=== PATIENT | female | born 2000 | race Hispanic/Latino ===

== ENCOUNTER 2023-03-18 19:13 | Emergency (ER) | payer OTHER ==
[2023-03-18 20:13] LABS: Specific Gravity 1.025 (1.005-1.030)
[2023-03-18 20:16] LABS: Specific Gravity 1.025 (1.005-1.030); Urine Bacteria <20 /HPF (<20); Urine Bilirubin NEGATIVE (Negative); Urine Blood 2+ (Negative); Urine Clarity Extremely Turbid (Clear); Urine Color Light-Yellow (Yellow); Urine Glucose NEGATIVE (Negative); Urine Mucus 1+ /HPF (None Seen); Urine Protein NEGATIVE (Negative); Urine RBC <5 /HPF (None Seen); Urine Urobilinogen Normal (Normal); Urine pH 5.5 (5.0-7.0)
[2023-03-18] MEDS ORDERED: CEFTRIAXONE 1000 MG/VIAL ONE (23:29)
[2023-03-18] MEDS ORDERED: AZITHROMYCIN 250 MG TAB ONE (23:29)
[2023-03-18] MEDS ORDERED: LIDOCAINE 1% MPF 2 ML AMPULE ONE (23:29)
[2023-03-19 01:41] VITALS: TEMP 98; O2SAT 100
[2023-03-19 01:42] VITALS: BP 143/91
--- NOTE | 2023-03-19 23:54 | ER ---
Nurse's Notes [facility] Name: Charley Hurtado Age: 22 yrs Sex: Female : 2000 Arrival Date: 03/18/2023 Time: 19:13 Bed 12 Private MD: Diagnosis: Abscess of Bartholin's gland Presentation: 03/18 19:44 Chief complaint: Patient states: VAGINAL PAIN AND EDEMA SINCE LAST PM, JUST FINISHED bp LAST MENSTRUAL PERIOD. Coronavirus screen: At this time, the client does not indicate any symptoms associated with coronavirus-19. Ebola Screen: No symptoms or risks identified at this time. Initial Sepsis Screen: Does the patient meet any 2 criteria? No. Patient's initial sepsis screen is negative. Does the patient have a suspected source of infection? No. Patient's initial sepsis screen is negative. Risk Assessment: Do you want to hurt yourself or someone else? Patient reports no desire to harm self or others. Onset of symptoms is unknown. 19:44 Method Of Arrival: Ambulatory bp 19:44 Acuity: FABIAN 3 bp Triage Assessment: 19:45 General: Appears uncomfortable, Behavior is cooperative, appropriate for age, anxious. bp Pain: Complains of pain in pelvis. EENT: No deficits noted. : Reports pain with urination. 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 - Social history:: Smoking status: Patient denies any tobacco usage or history of. Screenin:21 [facility] ED Fall Risk Assessment (Adult) History of falling in the last 3 months, me1 including since admission No falls in past 3 months (0 pts) Confusion or Disorientation No (0 pts) Intoxicated or Sedated No (0 pts) Impaired Gait No (0 pts) Mobility Assist Device Used No (0 pt) Altered Elimination No (0 pt) Score/Fall Risk Level 0 - 2 = Low Risk. Abuse screen: Denies threats or abuse. Nutritional screening: No deficits noted. Tuberculosis screening: No symptoms or risk factors identified. Assessment: 23:21 General: Appears uncomfortable, well groomed, well developed, well nourished, Behavior me1 is calm, cooperative, appropriate for age, Reports vaginal pain and edema that started last night. Patient just finished her menstrual cycle. Pain: Complains of pain in vagina Pain does not radiate. Pain currently is 6 out of 10 on a pain scale. Quality of pain is described as tender, throbbing, Pain began 1 day ago. Is continuous. Neuro: Level of Consciousness is awake, alert, obeys commands, Oriented to person, place, time, situation, Appropriate for age. Cardiovascular: Capillary refill < 3 seconds Patient's skin is warm and dry. Respiratory: Airway is patent Respiratory effort is even, unlabored, Respiratory pattern is regular, symmetrical. : Denies burning with urination. Vital Signs: 19:44 BP 151 / 96; Pulse 91; Resp 16; Temp 98; Pulse Ox 100% ; Weight 72.57 kg; Height 5 ft. bp 3 in. ; 23:37 BP 143 / 91; Pulse 93; Resp 17; Pulse Ox 100% on R/A; me1 19:44 Body Mass Index 28.34 (72.57 kg, 160.02 cm) bp ED Course: 19:18 Patient arrived in ED. ag3 19:24 Gloria Vera FNP-C is [facility]. kb 19:24 Eliana Russell is Attending Physician. kb 19:45 Triage completed. bp 19:45 Arm band placed on. bp 23:10 Leigh Amador, RN is Primary Nurse. me1 23:21 Patient has correct armband on for positive identification. Placed in gown. Bed in low me1 position. Call light in reach. Side rails up X 1. Provided Education on: POC. Verbalized understanding. . 23:21 No provider procedures requiring assistance completed. Patient did not have IV access me1 during this emergency room visit. Administered Medications: 23:36 Drug: AZITHromycin PO 1 grams Route: PO; me1 23:48 Follow up: Response: No adverse reaction me1 23:36 Drug: Rocephin (cefTRIAXone) IM 1 grams Route: IM; Site: left deltoid; me1 23:48 Follow up: Response: No adverse reaction me1 Medication: 23:21 VIS not applicable for this client. me1 Outcome: 23:01 Discharge ordered by . marcus 23:53 Discharged to home ambulatory, with family. me1 23:53 Condition: stable 23:53 Discharge instructions given to patient, family, Instructed on discharge instructions, follow up and referral plans. medication usage, Demonstrated understanding of instructions, follow-up care, medications, Prescriptions given X 1. 23:54 Patient left the ED. me1 Signatures: Gloria Vera, [employer]-C HYACINTH-Cory Escamilla, RN RN Yolanda Purdy [facility] Leigh Amador, NETTE RN me1
--- NOTE | 2023-03-19 23:54 | EDPHYS ---
Physician Documentation [facility] Name: Charley Hurtado Age: 22 yrs Sex: Female : 2000 Arrival Date: 03/18/2023 Time: 19:13 Bed 12 Private MD: ED Physician Eliana Russell HPI: 03/18 23:31 This 22 yrs old Female presents to ER via Ambulatory with complaints of kb Vaginal Pain, vaginal swelling. 23:31 The patient presents with pelvic pain, that is located in/on the right labia majora. kb Onset: The symptoms/episode began/occurred yesterday. Modifying factors: The symptoms are alleviated by nothing, the symptoms are aggravated by pressure. Associated signs and symptoms: The patient has no apparent associated signs or symptoms. Severity of symptoms: At their worst the symptoms were moderate, in the emergency department the symptoms are unchanged. The patient has experienced a previous episode. The patient has not recently seen a physician. Patient reports pain and swelling to labia since yesterday.. 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 - Social history:: Smoking status: Patient denies any tobacco usage or history of. ROS: 23:30 Constitutional: Negative for fever, chills, and weight loss. kb 23:30 : Positive for Pain and swelling to labia. 23:30 All other systems are negative. Exam: 23:29 Constitutional: This is a well developed, well nourished patient who is awake, alert, kb and in no acute distress. Head/Face: Normocephalic, atraumatic. ENT: Moist Mucous membranes Cardiovascular: Regular rate and rhythm with a normal S1 and S2. No gallops, murmurs, or rubs. No pulse deficits. Respiratory: Respirations even and unlabored. No increased work of breathing. Talking in full sentences Abdomen/GI: Soft, non-tender. No distention Skin: Warm, dry with normal turgor. Normal color. MS/ Extremity: Pulses equal, no cyanosis. Neurovascular intact. Full, normal range of motion. Neuro: Awake and alert, GCS 15, oriented to person, place, time, and situation. Moves all extremities. Normal gait. 23:29 : Pelvic Exam: External exam: Bartholin's cyst present. Vital Signs: 19:44 BP 151 / 96; Pulse 91; Resp 16; Temp 98; Pulse Ox 100% ; Weight 72.57 kg; Height 5 ft. bp 3 in. ; 23:37 BP 143 / 91; Pulse 93; Resp 17; Pulse Ox 100% on R/A; me1 19:44 Body Mass Index 28.34 (72.57 kg, 160.02 cm) bp MDM: 19:24 Patient medically screened. kb 23:29 Differential diagnosis: urinary tract infection, vaginosis, Bartholin cyst, abscess. kb Data reviewed: vital signs, nurses notes. Counseling: I had a detailed discussion with the patient and/or guardian regarding the historical points, exam findings, and any diagnostic results supporting the discharge/admit diagnosis, lab results, the need for outpatient follow up, an OB/Gyne specialist, to return to the emergency department if symptoms worsen or persist or if there are any questions or concerns that arise at home. ED course: Discussed I\T\D with patient. Patient states she has had something similar in the past and the antibiotics took care of it without having it cut. Patient would like to try oral antibiotics first, does not want I\T\D at this time. 03/18 20:00 Order name: Urine W/Microscopic (UAM); Complete Time: 20:21 bp 03/18 20:00 Order name: Test, Urine; Complete Time: 20:21 bp Administered Medications: 23:36 Drug: AZITHromycin PO 1 grams Route: PO; me1 23:48 Follow up: Response: No adverse reaction me1 23:36 Drug: Rocephin (cefTRIAXone) IM 1 grams Route: IM; Site: left deltoid; me1 23:48 Follow up: Response: No adverse reaction me1 Disposition Summary: 03/18/23 23:01 Discharge Ordered Location: Home kb Condition: Stable kb Diagnosis - Abscess of Bartholin's gland kb Followup: kb - With: Emergency Department - When: As needed - Reason: Worsening of condition Followup: kb - With: Private Physician - When: 2 - 3 days - Reason: Recheck today's complaints, Continuance of care, Re-evaluation by your physician Discharge Instructions: - Discharge Summary Sheet kb - Bartholin's Cyst, [id number] kb Forms: - Medication Reconciliation Form kb - Thank You Letter kb - Antibiotic Education kb - Prescription Opioid Use kb - Patient Portal Instructions kb - Leadership Thank You Letter kb Prescriptions: - Doxycycline Hyclate 100 mg Oral Tablet - take 1 tablet by ORAL route every 12 hours; 20 tablet; Refills: 0, Product kb Selection Permitted Signatures: Dispatcher [employer] EDMS Gloria Vera, HYACINTH-C Cory Villegas, RN RN bp Leigh Amador, NETTE RN me1
== END 2023-03-18 23:54 | disposition home or self-care (01) ==
LOC: ER 19:13
DX: N75.1 Abscess of Bartholin's gland (principal)
CPT/HCPCS: 81001; 81025; 96372; 99284; J0696

== ENCOUNTER 2023-11-11 08:37 | Emergency (ER) | payer OTHER ==
--- OUTSIDE RECORDS SUMMARY | 2023-11-11 08:41 | XMS REPORT | Continuity of Care Document ---
Author Name Unknown Address [address] [facility]. [address] [place] [address] [facility] Address 1200 [facility] [address] [place] [address] Care Team Providers Care Pharmacy Clerk Name Role Phone [place] Attending Clinician UnavailChuy [place] Attending Clinician Unavailable [place] Admitting Clinician Unavailstanley e Physician, No Primary or Family Admitting Clinic gabriel Unavailable Payers Payer Name Policy Type Policy Number Effective Date Expirati on Date Source Allergies, Adverse Reactions, Alerts Allergy Name Allergy Type Status Severity Reaction(s) Onset Date Inactive Date Treating Clinician Comments Source No Known Allergie s DA Active U 01-03 00:00: 00 [facility] No Known Allergie s DA Active U 12-02 00:00: 00 [facility] No Known Allergie s DA Active U 12-02 00:00: 00 [facility] Procedures Procedure Date / Time Performed Performing Clinicia n Source [id number] 2022-01-03 00:00:00 [facility] Encounters Start Date/Time End Date/Time Encounter Type Admission Type Attending [facility] Care Facility Care Department Encounter ID Source 2021-12-07 12:45:00 Inpatient [place] [facility] OBANTE [id number] [facility] 2020-12-02 06:28:51 Inpatient [facility] [id number] [facility] 2022-08-24 04:32:00 2022-08-24 05:10:00 Emergency EM Chuy Xie [facility] ER [id number] [facility] 2022-01-03 07:58:00 2022-01-06 16:39:00 Inpatient [place] [facility] OBPP [id number] [facility] 2022-01-03 07:58:00 2022-01-06 16:39:00 Inpatient [place] [facility] OBPP [id number] [facility] 2021-12-07 12:45:00 2021-12-08 18:00:00 Inpatient [place] [facility] [id number] [facility] 2021-11-23 09:00:00 2021-11-23 14:59:00 Inpatient [place] [facility] [id number] [facility] Results Test Description Test Time Test Comments Results Result Co mments Source HGB [id number] 05:38:00* Test Item Value Reference Range Interpretation Comme nts HEMOGLOBIN (test code = HGB) 8.2 G/DL 12.0-16.0 L HEMATOCRIT (test code = HCT) 25.7 % 37-47 L MEAN CELL HGB CONCENTRATION (test code = MCHC) 31.9 G/DL 33-37 L UR PROTEIN [id number] 13:30:00* Test Item Value Reference Range Interpretation Comme nts UR PROTEIN RANDOM (test code = PROTU) 70 MG/DL No establish ed reference range for random urine specimen. UR CREATININE [id number] 13:30:00* Test Item Value Reference Range Interpretation Comme nts UR CREATININE RANDOM (test code = CREATU) 33.97 MG/DL No [facility] reference range for random urine specimen. PROTEIN/CREATININE [id number] 13:30:00* Test Item Value Reference Range Interpretation Comme nts PROTEIN/CREATININE RATIO (te st code = P/CRATIO) 2.1 < 0.2 H COMPREHENSIVE METABOLIC [id number] 12:43:00* Test Item Value Reference Range Interpretation Comme nts SODIUM (test code = NA) 138 MMOL/L 133-145 N POTASSIUM (test code = K) 4.2 MMOL/L 3.6-5.2 N CHLORIDE (test code = CL) 105 MMOL/L 100-108 N CARBON DIOXIDE (test code = CO2) 22 MMOL/L 22-32 N GLUCOSE (test code = GLU) 89 MG/DL 65-99 N Results of this assay method may be falsely depressed orelevated if patient is taking sulfasalazine. BLOOD UREA NITROGEN (test code = BUN) 8 MG/DL 6-20 N GLOMERULAR FILTRATION RATE (test code = GFR) 142 71-165 N Reporting units: mL/min/1.73m\\S\\2 (Modified MDRD Formula) CREATININE (test code = CREAT) 0.55 MG/DL 0.60-1.00 L TOTAL PROTEIN (test code = PROT) 5.8 G/DL 6.4-8.2 L ALBUMIN (test code = ALB) 2.0 G/DL 3.4-5.0 L GLOBULIN (test code = GLOB) 3.8 G/DL 1.5-3.8 N ALBUMIN/GLOBULIN RATIO (test code = A/G) 0.5 1.1-2.2 L CALCIUM (test code = CA) 7.5 MG/DL 8.7-10.5 L BILIRUBIN TOTAL (test code = BILT) 0.2 MG/DL 0.0-1.0 N SGOT/AST (test code = AST) 14 Units/L 15-37 L Results of this assay method may be falsely depressed orelevated if patient is taking sulfasalazine. SGPT/ALT (test code = ALT) 12 Units/L 30-65 L Results of this assay method may be falsely depressed orelevated if patient is taking sulfasalazine. ALKALINE PHOSPHATASE TOTAL (test code = ALKP) 102 Units/L 50-130 N URIC [id number] 12:43:00* Test Item Value Reference Range Interpretation Comme nts URIC ACID (test code = URIC) 3.3 MG/DL 2.6-6.0 N LACTIC DEHYDROGENASE(LDH)2022-01-03 12:43:00* Test Item Value Reference Range Interpretation Comme nts LACTIC DEHYDROGENASE(LDH) (t est code = LDH) 153 Units/L 81-234 N Coronavirus 2019 nCoV [id number] 09:18:00* Test Item Value Reference Range Interpretation Comme nts Coronavirus 2019 nCoV Bedside (test code = [id number]) Negative Negative ID NOW COVID-19 assay performed on the ID NOW Instrument wilber rapid molecular in vitro diagnostic test utilizing anisothermal nucleic acid amplification technology intendedfor the qualitative detection of nucleic acid from uajXTEU-EhT-7 viral RNA in direct nasal, nasopharyngeal orthroat swabs and nasal, nasopharyngeal or throat swabseluted in viral transport media from individuals who aresuspected of COVID-19 by their healthcare provider. Negative results should be treated as presumptive and, ifinconsistent with clinical signs and symptoms or necessaryfor patient management, should be tested with differentauthorized or cleared molecular tests. Negative results donot preclude SARS-CoV-2 infection and should not be used asthe sole basis for patient management decisions. Negativeresults should be considered in the context of a patient'srecent exposures, history and presence of clinical signs andsymptoms consistent with COVID-19.Results are for the identification of SARS-CoV-2 RNA.For Use Under an Emergency Use Authorization (EUA) Only Negative results do not preclude SARS-CoV-2 infection andshould not be used as the sole basis for patient managementdecisions. Negative results must be combined with clinicalobservations, patient history, and epidemiologicalinformation . CBC W/AUTO [id number] 08:56:00* Test Item Value Reference Range Interpretation Comme nts WHITE BLOOD CELL (test code = WBC) 10.04 x10 3/uL 4.80-10.80 N RED BLOOD CELL (test code = RBC) 3.42 x10 6/uL 4.2-5.4 L HEMOGLOBIN (test code = HGB) 9.1 G/DL 12.0-16.0 L HEMATOCRIT (test code = HCT) 28.5 % 37-47 L MEAN CELL VOLUME (test code = MCV) 83.3 FL 81-99 N MEAN CELL HGB (test code = MCH) 26.6 PG 27-31 L MEAN CELL HGB CONCENTRATION (test code = MCHC) 31.9 G/DL 33-37 L RED CELL DISTRIBUTION WIDTH (test code = RDW) 18.6 % 11.5-14.5 H PLATELET COUNT (test code = PLT) 178 x10 3/uL 150-450 N MEAN PLATELET VOLUME (test code = MPV) 12.8 FL 7.4-10.4 H NEUTROPHIL % (test code = NT%) 79.5 % 42-86 N IMMATURE GRANULOCYTE % (test code = IG%) 0.4 % 0.0-2.0 N LYMPHOCYTE % (test code = LY%) 13.8 % 24-44 L MONOCYTE % (test code = MO%) 5.2 % 0.0-4.0 H EOSINOPHIL % (test code = EO%) 0.6 % 0.0-2.7 N BASOPHIL % (test code = BA%) 0.5 % 0.0-0.5 N NUCLEATED RBC % (test code = NRBC%) 0.0 % 0.0-0.0 N NEUTROPHIL # (test code = NT#) 7.98 x10 3/uL 1.8-7.7 H IMMATURE GRANULOCYTE # (test code = IG#) 0.04 x10 3/uL 0.00-0.03 H LYMPHOCYTE # (test code = LY#) 1.39 x10 3/uL 1.0-4.8 N MONOCYTE # (test code = MO#) 0.52 x10 3/uL 0.0-0.8 N EOSINOPHIL # (test code = EO#) 0.06 x10 3/uL 0.0-0.5 N BASOPHIL # (test code = BA#) 0.05 x10 3/uL 0.0-0.2 N NUCLEATED RBC # (test code = NRBC#) 0.0 X10 3/uL 0.0-0.2 N UR PROTEIN [id number] 16:20:00* Test Item Value Reference Range Interpretation Comme nts UR PROTEIN 24HR (test code = [id number]) 49 MG/24HR 0-165 N UR VOLUME (test code = VOL) 700 ML UR COLLECTION TIME (test code = COLTM) 24 HOURS See_Comment N [Automated m essage] The system which generated this result transmitted reference range: 24. The reference range was not used to interpret this result as normal/abnormal. Is this a 24 hour or timed collection (less than 24 hour)? 24 Hr CollectUR CREATININE CLEARANCE [id number] 16:19:00* Test Item Value Reference Range Interpretation Comme nts CREATININE CLEARANCE RESULT (test code = CREATCLR) 137 ML/MIN 75-115 H Creatinine Clear ance corrected for body surface area. GLOMERULAR FILTRATION RATE (test code = GFR) 137 71-165 N Reporting units: mL/min/1.73m\\S\\2 (Modified MDRD Formula) CREATININE (test code = CREAT) 0.57 MG/DL 0.60-1.00 L UR CREATININE 24HR (test code = NMIK79M) 1.2 G/24HR 0.5-1.9 N UR VOLUME (test code = VOL) 700 ML HEIGHT (test code = HGT) 64 INCHES WEIGHT (test code = WGT) 198 LBS UR COLLECTION TIME (test code = COLTM) 24 HOURS See_Comment N [Automated m essage] The system which generated this result transmitted reference range: 24. The reference range was not used to interpret this result as normal/abnormal. Is this a 24 hour or timed collection (less than 24 hour)? 24 Hr CollectUA RFLX [id number] 16:04:00* Test Item Value Reference Range Interpretation Comme nts UA COLOR (test code = COLU) Yellow YELLOW UA APPEARANCE (test code = APPU) Turbid CLEAR UA GLUCOSE DIPSTICK (test code = DGLUU) NORMAL mg/dL NEGATIVE UA BILIRUBIN DIPSTICK (test code = BILU) NEGATIVE NEGATIVE UA KETONE DIPSTICK (test cod e = KETU) NEGATIVE mg/dL NEGATIVE UA SPECIFIC GRAVITY (test code = SGU) 1.022 1.001-1.035 N UA BLOOD DIPSTICK (test code = ESTER) NEGATIVE NEGATIVE UA PH DIPSTICK (test code = RENEE) 6.0 5.5-7.0 N UA PROTEIN DIPSTICK (test code = PROU) 30 mg/dL NEGATIVE A UA UROBILINOGEN DIPSTICK (test code = URO) NORMAL mg/dL NORMAL UA NITRITE DIPSTICK (test code = PENNIE) NEGATIVE NEGATIVE UA LEUKOCYTE ESTERASE DIPSTICK (test code = LEUU) 75 NEGATIVE A UA COMMENT (test code = COMU) VOLUME 10-12 ML URINE SPECIMEN DESCRIPTION (test code = UASPEC) Clean Catch URINE SOURCE: Clean CatchUA [id number] 16:04:00* Test Item Value Reference Range Interpretation Comme nts UA WBC (test code = WBCU) < 10 #/hpf <10 UA RBC (test code = RBCU) 3-5 #/HPF NONE SEEN A UA SQUAMOUS CELLS (test code = SQU) > 100 #/lpf <100 A UA CULTURE NEEDED? (test code = UACULT) Criteria not met UA MUCUS (test code = MUCU) 2+ #/lpf NONE SEEN A URINE SOURCE: Clean CatchCOVID 19 Asymptomatic IH [id number] 14:48:00* Test Item Value Reference Range Interpretation Comments COVID 19 Asymptomatic IH AG (test code = COVNONPUIAG) NEGATIVE Negative " The Dania SARS Antigen ADRY does not differentiate betweenSARS-CoV and SARS-CoV-2 " The [employer]ia SARS Antigen ADRY employs immunofluorescencetechnology in a sandwich design that is used with Dania todetect nucleocapsid protein from SARS-CoV and SARS-CoV-2.This test allows for the detection of SARS-CoV tnzNEPQ-KaK-6. The test detects, but does not differentiate,between the two viruses. " Results are for the identification of OENN-UeG-8naypeijccpuu protein antigen. Antigen is generallydetectable in upper respiratory specimens during the acutephase of infection. Positive results indicate the presenceof viral antigens, but clinical correlation with patienthistory and other diagnostic information is necessary todetermine infection status. Positive results do not rule outbacterial infection or co-infection with other viruses. Theagent detected may not be the definite cause of disease. " Negative results should be treated as presumptive " This test has not been FDA cleared or approved; the testhas been authorized by FDA under an Emergency UseAuthorization (EUA) for use by laboratories certified undert CLIA that meet the requirements to perform moderate,high or waived complexity tests. This test is authorized foruse at the Point of Care (POC), i.e., in patient caresettings operating under a [facility] Certificate of Waiver,Certificate of Compliance, or Certificate of Accreditation Use [employer] NOW test: NOCOMPREHENSIVE METABOLIC [id number] 14:41:00* Test Item Value Reference Range Interpretation Comme nts SODIUM (test code = NA) 134 MMOL/L 133-145 N POTASSIUM (test code = K) 4.1 MMOL/L 3.6-5.2 N CHLORIDE (test code = CL) 102 MMOL/L 100-108 N CARBON DIOXIDE (test code = CO2) 22 MMOL/L 22-32 N GLUCOSE (test code = GLU) 85 MG/DL 65-99 N Results of this assay method may be falsely depressed orelevated if patient is taking sulfasalazine. BLOOD UREA NITROGEN (test code = BUN) 6 MG/DL 6-20 N GLOMERULAR FILTRATION RATE (test code = GFR) 137 71-165 N Reporting units: mL/min/1.73m\\S\\2 (Modified MDRD Formula) CREATININE (test code = CREAT) 0.57 MG/DL 0.60-1.00 L TOTAL PROTEIN (test code = PROT) 6.7 G/DL 6.4-8.2 N ALBUMIN (test code = ALB) 2.8 G/DL 3.4-5.0 L GLOBULIN (test code = GLOB) 3.9 G/DL 1.5-3.8 H ALBUMIN/GLOBULIN RATIO (test code = A/G) 0.7 1.1-2.2 L CALCIUM (test code = CA) 8.3 MG/DL 8.7-10.5 L BILIRUBIN TOTAL (test code = BILT) 0.3 MG/DL 0.0-1.0 N SGOT/AST (test code = AST) 32 Units/L 15-37 N Results of this assay method may be falsely depressed orelevated if patient is taking sulfasalazine. SGPT/ALT (test code = ALT) 22 Units/L 30-65 L Results of this assay method may be falsely depressed orelevated if patient is taking sulfasalazine. ALKALINE PHOSPHATASE TOTAL (test code = ALKP) 93 Units/L 50-130 N URIC [id number] 14:41:00* Test Item Value Reference Range Interpretation Comme nts URIC ACID (test code = URIC) 4.8 MG/DL 2.6-6.0 N LACTIC DEHYDROGENASE(LDH)2021-12-07 14:41:00* Test Item Value Reference Range Interpretation Comme nts LACTIC DEHYDROGENASE(LDH) (t est code = LDH) 251 Units/L 81-234 H CBC W/AUTO [id number] 14:30:00* Test Item Value Reference Range Interpretation Comme nts WHITE BLOOD CELL (test code = WBC) 4.29 x10 3/uL 4.80-10.80 L RED BLOOD CELL (test code = RBC) 3.52 x10 6/uL 4.2-5.4 L HEMOGLOBIN (test code = HGB) 9.1 G/DL 12.0-16.0 L HEMATOCRIT (test code = HCT) 29.9 % 37-47 L MEAN CELL VOLUME (test code = MCV) 84.9 FL 81-99 N MEAN CELL HGB (test code = MCH) 25.9 PG 27-31 L MEAN CELL HGB CONCENTRATION (test code = MCHC) 30.4 G/DL 33-37 L RED CELL DISTRIBUTION WIDTH (test code = RDW) 19.2 % 11.5-14.5 H PLATELET COUNT (test code = PLT) 170 x10 3/uL 150-450 N MEAN PLATELET VOLUME (test c ode = MPV) 13.3 FL 7.4-10.4 H NEUTROPHIL % (test code = NT%) 73.9 % 42-86 N IMMATURE GRANULOCYTE % (test code = IG%) 0.5 % 0.0-2.0 N LYMPHOCYTE % (test code = LY%) 17.0 % 24-44 L MONOCYTE % (test code = MO%) 7.9 % 0.0-4.0 H EOSINOPHIL % (test code = EO%) 0.2 % 0.0-2.7 N BASOPHIL % (test code = BA%) 0.5 % 0.0-0.5 N NUCLEATED RBC % (test code = NRBC%) 0.0 % 0.0-0.0 N NEUTROPHIL # (test code = NT#) 3.17 x10 3/uL 1.8-7.7 N IMMATURE GRANULOCYTE # (test code = IG#) 0.02 x10 3/uL 0.00-0.03 N LYMPHOCYTE # (test code = LY#) 0.73 x10 3/uL 1.0-4.8 L MONOCYTE # (test code = MO#) 0.34 x10 3/uL 0.0-0.8 N EOSINOPHIL # (test code = EO#) 0.01 x10 3/uL 0.0-0.5 N BASOPHIL # (test code = BA#) 0.02 x10 3/uL 0.0-0.2 N NUCLEATED RBC # (test code = NRBC#) 0.0 X10 3/uL 0.0-0.2 N - [place] [id number] 14:28:00 [facility] : 2000 Sex: F Patient Name: HERVE HERNANDEZ Unit No: [id number] EXAMS: CPT CODE: [id number] [place] [address] BIOPHYSICAL PROFILE: OB ULTRASOUND LIMITED: Location Code: H 31 HISTORY: induced hypertension. Preeclampsia. TECHNIQUE: Dynamic scanning of the gravid uterus was performed. FINDINGS: There is a single viable in vertex presentation. Cardiac activity was documented at 140 beats per minute and regular. The placenta is posterior with no evidence for previa. Amniotic fluid index measures 19.0, high normal. Single deepest pocket measures 5.9 cm. The cervix is not well seen due to position. Biophysical profile was performed: breathing movements: 2.Gross body movement: 2. tone: 2.Qualitative amniotic fluid volume: 2.Total score is 8 IMPRESSION: 1. Single viable in vertex presentation. 2. Biophysical profile score excluding nonstress test of 8 of 8. 3. AP 19.0, borderline elevated. at 1428 Reported and signed by: Shelbie Duff MD CC: [place] Technologist: Rosette Cain Trnscrbd D/ ([id number]) [email or web address] [facility] NAME: HERVE HERNANDEZ [address]: [place] [place] [address] : 2000 AGE: 21 SEX: F LOC: D.Y294 1 PHONE #: [phone] EXAM DATE: 12/07/2021 STATUS: ADM IN FAX #: RAD NO: Page 1 Signed Report- FET BIO PH LA W/O [id number] 14:28:00 [facility] : 2000 Sex: F Patient Name: HERVE HERNANDEZ Unit No: [id number] EXAMS: CPT CODE: [id number] FET BIO PHPR W/O NST 84680 BIOPHYSICAL PROFILE: OB ULTRASOUND LIMITED: Location Code: H 31 HISTORY: Pregnancyinduced hypertension. Preeclampsia. TECHNIQUE: Dynamic scanning of the gravid uterus was performed.FINDINGS: There is a single viable in vertex presentation. Cardiac activity was documented at 140 beats per minute and regular. The placenta is posterior with no evidence for previa. Amniotic fluid index measures 19.0, high normal. Single deepest pocket measures 5.9 cm. The cervix is not well seen due to position. Biophysical profile was performed: breathing movements: 2.Gross body movement: 2. tone: 2.Qualitative amniotic fluid volume: 2.Total score is 8 IMPRESSION: 1. Single viable in vertex presentation. 2. Biophysical profile score excluding nonstresstest of 8 of 8. 3. AP 19.0, borderline elevated. at 1428 Reported and signed by: Shelbie Duff MD CC: [place] MD Technologist: Rosette Cain Trnscrbd D/ ([id number]) [email or web address] Orig Print D/T: S: 12/07/2021 ([id number]) Probe: [facility] NAME: HERVE HERNANDEZ [address]: [address] [place] [address] : 2000 AGE: 21 SEX: F LOC: D.Y294 1 PHONE #: [phone] EXAM DATE: 12/07/2021 STATUS: ADM IN FAX #: RAD NO: Page 1 Signed Report- CT ABD PELVIS [id number] 13:49:00 [facility] : 2000 Sex: F Patient Name: HERVE HERNANDEZ Unit No: [id number] EXAMS: CPT CODE: [id number] CT ABD PELVISW/CONT 71207 Reason: epigastric RUQ pain EXAM: - CT ABD PELVIS W/CONT INDICATION: 20 years -old Female with epigastric RUQ pain TECHNIQUE: Contrast - IV contrast was given. No oral contrast was given Portal venous phase - abdomen and pelvis No delayed phase images were obtained. Reconstructions - coronal and sagittal planes Automated exposure reduction (Auto mA/Smart mA) was utilized in compliance with ACR Image Wisely COMPARISON: None FINDINGS: Statements: None. Thoracic: Included images of the lower chest demonstrate no abnormalities. Hepatobiliary: The liver is normal without focal lesion. Cholecystectomy clips are present. No biliary dilation. Pancreas: Normal. Spleen: Normal. Adrenals: Normal. Genitourinary: The kidneys are normal. No evidence of hydronephrosis. Evaluation of the bladder is limited, but no obvious bladder abnormality is present. Gastrointestinal: No bowel obstruction or perienteric inflammation. The appendix is normal. Vascular: No evidence of aneurysm or dissection. Bones/Soft Tissues: No acute osseous findings. No ventral hernias. Peritoneum/Other: No extraluminal fluid. IMPRESSION: 1. Prior cholecystectomy. 2. Normal appendix. 3. No evidence of bowel obstruction. No other acute abnormalities demonstrated. at 1349 Reported and signed by: Chuy Blanc MD [facility] NAME: HERVE HERNANDEZ [address]: [place] [address] : 2000 AGE: 20SEX: F LOC: D.RER PHONE #: EXAM DATE: 12/02/2020 STATUS: REG ER FAX #: RAD NO: DC Dt: PAGE 1 Signed Report (CONTINUED) Patient Name: HERVE HERNANDEZ Unit No: [id number] EXAMS: CPT CODE: [id number] CT ABD PELVIS W/CONT 78165 (Continued) Reason: epigastric RUQ pain CC: [place] MD Technologist: AXEL Osorio Trscrpt Dt/ ([email or web address] Orig Print D/T: S: 12/02/2020 ([id number]) CTDI: DLP: [place] NAME: DAVID,HERVE BRIAN [address] PHYS: [place] [address] : 2000 AGE: 20 SEX: F LOC: JENI PHONE #: EXAM DATE: 12/02/2020 STATUS: REG ER FAX #: RAD NO: DC Dt: PAGE 2 Signed ReportDRUG OF ABUSE SCREEN [id number] 13:19:00 * Test Item Value Reference Range Interpretation Comme nts UR COCAINE (test code = COCAU) NEGATIVE NEGATIVE UR CANNABINOIDS (test code = CANU) POSITIVE NEGATIVE A UR AMPHETAMINE (test code = AMPHU) NEGATIVE NEGATIVE UR BARBITURATE QUAL (test co de = BARBQLU) NEGATIVE NEGATIVE UR BENZODIAZEPINE (test code = BENZU) NEGATIVE NEGATIVE UR OPIATES QUAL (test code = OPIAQLU) POSITIVE NEGATIVE A UR HCG [id number] 13:16:00* Test Item Value Reference Range Interpretation Comme nts UR HCG QUAL (test code = HCGQLU) NEGATIVE NEGATIVE False negatives may occur when levels of hCGare below 20 mIU/ml. When is still suspected, a new specimenshould be obtained after 48 hours and re-tested.If waiting 48 hours is not medically advisable,the test result should be confirmed using aquantitative hCG assay. BILIRUBIN [id number] 11:53:00* Test Item Value Reference Range Interpretation Comme nts BILIRUBIN DIRECT (test code = BILD) 0.2 MG/DL 0.0-0.3 N [id number] 11:53:00* Test Item Value Reference Range Interpretation Comme nts LIPASE (test code = LIP) 69 Units/L 73-393 L CBC W/AUTO [id number] 11:36:00* Test Item Value Reference Range Interpretation Comme nts WHITE BLOOD CELL (test code = WBC) 5.50 x10 3/uL 4.80-10.80 N RED BLOOD CELL (test code = RBC) 4.06 x10 6/uL 4.2-5.4 L HEMOGLOBIN (test code = HGB) 10.4 G/DL 12.0-16.0 L HEMATOCRIT (test code = HCT) 34.2 % 37-47 L MEAN CELL VOLUME (test code = MCV) 84.2 FL 81-99 N MEAN CELL HGB (test code = MCH) 25.6 PG 27-31 L MEAN CELL HGB CONCENTRATION (test code = MCHC) 30.4 G/DL 33-37 L RED CELL DISTRIBUTION WIDTH (test code = RDW) 14.7 % 11.5-14.5 H PLATELET COUNT (test code = PLT) 231 x10 3/uL 150-450 N MEAN PLATELET VOLUME (test code = MPV) 11.8 FL 7.4-10.4 H NEUTROPHIL % (test code = NT%) 74.2 % 42-86 N LYMPHOCYTE % (test code = LY%) 19.8 % 24-44 L MIXED % (test code = MX%) 6.0 % MIXED PERCENTAGE AND ABSOLUTE INCLUDE MONOCYTE, BASOPHIL ANDEOSINOPHIL COUNTS. NEUTROPHIL # (test code = NT#) 4.10 x10 3/uL 1.8-7.7 N LYMPHOCYTE # (test code = LY#) 1.10 x10 3/uL 1.0-4.8 N MIXED # (test code = MX#) 0.3 k/mm3 MIXED PERCENTAGE AND ABSOLUTE INCLUDE MONOCYTE, BASOPHIL ANDEOSINOPHIL COUNTS. UA RFLX MICROSCOPIC [id number] 11:35:00* Test Item Value Reference Range Interpretation Comme nts UA COLOR (test code = COLU) DARK YELLOW YELLOW UA APPEARANCE (test code = APPU) HAZY CLEAR UA GLUCOSE DIPSTICK (test code = DGLUU) NEGATIVE mg/dL NEGATIVE UA BILIRUBIN DIPSTICK (test code = BILU) 1+ NEGATIVE A Not able to rule out false positive; No confirmatory test. UA KETONE DIPSTICK (test code = KETU) NEGATIVE mg/dL NEGATIVE UA SPECIFIC GRAVITY (test code = SGU) >= 1.030 1.001-1.035 N UA BLOOD DIPSTICK (test code = ESTER) TRACE NEGATIVE A UA PH DIPSTICK (test code = RENEE) 5.5 5.5-7.0 N UA PROTEIN DIPSTICK (test code = PROU) 30 mg/dL NEGATIVE A UA UROBILINOGEN DIPSTICK (test code = URO) NORMAL mg/dL NORMAL UA NITRITE DIPSTICK (test code = PENNIE) NEGATIVE NEGATIVE UA LEUKOCYTE ESTERASE DIPSTICK (test code = LEUU) NEGATIVE NEGATIVE UA COMMENT (test code = COMU) VOLUME 10-12 ML URINE SPECIMEN DESCRIPTION (test code = UASPEC) Clean Catch UA CULTURE NEEDED? (test code = UACULT) Criteria not met Indication for culture: Flank PainURINE SOURCE: Clean CatchUA RFLX MICROSCOPIC [id number] 11:34:00* Test Item Value Reference Range Interpretation Comme nts UA COLOR (test code = COLU) DARK YELLOW YELLOW UA APPEARANCE (test code = APPU) HAZY CLEAR UA GLUCOSE DIPSTICK (test code = DGLUU) NEGATIVE mg/dL NEGATIVE UA BILIRUBIN DIPSTICK (test code = BILU) 1+ NEGATIVE A Not able to rule out false positive; No confirmatory test. UA KETONE DIPSTICK (test code = KETU) NEGATIVE mg/dL NEGATIVE UA SPECIFIC GRAVITY (test code = SGU) >= 1.030 1.001-1.035 N UA BLOOD DIPSTICK (test code = ESTER) TRACE NEGATIVE A UA PH DIPSTICK (test code = RENEE) 5.5 5.5-7.0 N UA PROTEIN DIPSTICK (test code = PROU) 30 mg/dL NEGATIVE A UA UROBILINOGEN DIPSTICK (test code = URO) NORMAL mg/dL NORMAL UA NITRITE DIPSTICK (test code = PENNIE) NEGATIVE NEGATIVE UA LEUKOCYTE ESTERASE DIPSTICK (test code = LEUU) NEGATIVE NEGATIVE UA COMMENT (test code = COMU) VOLUME 10-12 ML URINE SPECIMEN DESCRIPTION (test code = UASPEC) UA WBC (test code = WBCU) #/hpf <10 UA SQUAMOUS CELLS (test code = SQU) #/lpf <100 UA CULTURE NEEDED? (test code = UACULT) Indication for culture: Flank PainURINE SOURCE: Clean CatchCOMPREHENSIVE METABOLIC [id number] 11:22:00* Test Item Value Reference Range Interpretation Comme nts SODIUM (test code = NA) 138 MMOL/L 133-145 N POTASSIUM (test code = K) 4.0 MMOL/L 3.6-5.2 N CHLORIDE (test code = CL) 108 MMOL/L 100-108 N CARBON DIOXIDE (test code = CO2) 29 MMOL/L 22-32 N GLUCOSE (test code = GLU) 120 MG/DL 65-99 H Results of this assay method may be falsely depressed orelevated if patient is taking sulfasalazine. BLOOD UREA NITROGEN (test code = BUN) 11 MG/DL 6-20 N GLOMERULAR FILTRATION RATE (test code = GFR) 93 71-165 N Reporting units: mL/min/1.73m\\S\\2 (Modified MDRD Formula) CREATININE (test code = CREAT) 0.80 MG/DL 0.60-1.00 N TOTAL PROTEIN (test code = PROT) 6.9 G/DL 6.4-8.2 N ALBUMIN (test code = ALB) 3.7 G/DL 3.4-5.0 N CALCIUM (test code = CA) 9.3 MG/DL 8.7-10.5 N BILIRUBIN TOTAL (test code = BILT) 0.6 MG/DL 0.0-1.0 N SGOT/AST (test code = AST) 212 Units/L 15-37 H Results of this assay method may be falsely depressed orelevated if patient is taking sulfasalazine. SGPT/ALT (test code = ALT) 118 Units/L 30-65 H Results of this assay method may be falsely depressed orelevated if patient is taking sulfasalazine. ALKALINE PHOSPHATASE TOTAL (test code = ALKP) 87 Units/L 50-130 N [id number] 08:30:00* Test Item Value Reference Range Interpretation Comme nts LIPASE (test code = LIP) 93 Units/L 73-393 N HCG SERUM [id number] 06:59:00* Test Item Value Reference Range Interpretation Comme nts HCG SERUM QUAL (test code = HCGQL) NEGATIVE NEGATIVE False negatives may occur when levels of hCGare below 10 mIU/ml. When is still suspected, a new specimenshould be obtained after 48 hours and re-tested.If waiting 48 hours is not medically advisable,the test result should be confirmed using aquantitative hCG assay. UA RFLX [id number] 06:53:00* Test Item Value Reference Range Interpretation Comme nts UA COLOR (test code = COLU) YELLOW YELLOW UA APPEARANCE (test code = APPU) SLIGHTLY CLOUDY CLEAR UA GLUCOSE DIPSTICK (test code = DGLUU) NEGATIVE mg/dL NEGATIVE UA BILIRUBIN DIPSTICK (test code = BILU) NEGATIVE NEGATIVE UA KETONE DIPSTICK (test cod e = KETU) NEGATIVE mg/dL NEGATIVE UA SPECIFIC GRAVITY (test code = SGU) >= 1.030 1.001-1.035 N UA BLOOD DIPSTICK (test code = ESTER) 1+ NEGATIVE UA PH DIPSTICK (test code = RENEE) 6.0 5.5-7.0 N UA PROTEIN DIPSTICK (test code = PROU) 100 mg/dL NEGATIVE A UA UROBILINOGEN DIPSTICK (test code = URO) 0.2 mg/dL NORMAL UA NITRITE DIPSTICK (test code = PENNIE) NEGATIVE NEGATIVE UA LEUKOCYTE ESTERASE DIPSTICK (test code = LEUU) NEGATIVE NEGATIVE UA COMMENT (test code = COMU) VOLUME 10-12 ML URINE SPECIMEN DESCRIPTION (test code = UASPEC) UA RFLX [id number] 06:53:00* Test Item Value Reference Range Interpretation Comme nts UA COLOR (test code = COLU) YELLOW YELLOW UA APPEARANCE (test code = APPU) SLIGHTLY CLOUDY CLEAR UA GLUCOSE DIPSTICK (test code = DGLUU) NEGATIVE mg/dL NEGATIVE UA BILIRUBIN DIPSTICK (test code = BILU) NEGATIVE NEGATIVE UA KETONE DIPSTICK (test cod e = KETU) NEGATIVE mg/dL NEGATIVE UA SPECIFIC GRAVITY (test code = SGU) >= 1.030 1.001-1.035 N UA BLOOD DIPSTICK (test code = ESTER) 1+ NEGATIVE UA PH DIPSTICK (test code = RENEE) 6.0 5.5-7.0 N UA PROTEIN DIPSTICK (test code = PROU) 100 mg/dL NEGATIVE A UA UROBILINOGEN DIPSTICK (test code = URO) 0.2 mg/dL NORMAL UA NITRITE DIPSTICK (test code = PENNIE) NEGATIVE NEGATIVE UA LEUKOCYTE ESTERASE DIPSTICK (test code = LEUU) NEGATIVE NEGATIVE UA COMMENT (test code = COMU) VOLUME 10-12 ML URINE SPECIMEN DESCRIPTION (test code = UASPEC) Clean Catch COMPREHENSIVE METABOLIC [id number] 06:51:00* Test Item Value Reference Range Interpretation Comme nts SODIUM (test code = NA) 140 MMOL/L 133-145 N POTASSIUM (test code = K) 4.1 MMOL/L 3.6-5.2 N CHLORIDE (test code = CL) 106 MMOL/L 100-108 N CARBON DIOXIDE (test code = CO2) 28 MMOL/L 22-32 N GLUCOSE (test code = GLU) 122 MG/DL 65-99 H Results of this assay method may be falsely depressed orelevated if patient is taking sulfasalazine. BLOOD UREA NITROGEN (test code = BUN) 12 MG/DL 6-20 N GLOMERULAR FILTRATION RATE (test code = GFR) Unable to calculate 71-165 N Unable to calculate eGFR; no race entered to medical record.Reporting units: mL/min/1.73m\\S\\2 (Modified MDRD Formula) CREATININE (test code = CREAT) 0.70 MG/DL 0.60-1.00 N TOTAL PROTEIN (test code = PROT) 7.2 G/DL 6.4-8.2 N ALBUMIN (test code = ALB) 3.9 G/DL 3.4-5.0 N CALCIUM (test code = CA) 9.5 MG/DL 8.7-10.5 N BILIRUBIN TOTAL (test code = BILT) 0.5 MG/DL 0.0-1.0 N SGOT/AST (test code = AST) 46 Units/L 15-37 H Results of this assay method may be falsely depressed orelevated if patient is taking sulfasalazine. SGPT/ALT (test code = ALT) 57 Units/L 30-65 N Results of this assay method may be falsely depressed orelevated if patient is taking sulfasalazine. ALKALINE PHOSPHATASE TOTAL (test code = ALKP) 66 Units/L 50-130 N CBC W/AUTO [id number] 06:46:00* Test Item Value Reference Range Interpretation Comme nts WHITE BLOOD CELL (test code = WBC) 5.40 x10 3/uL 4.80-10.80 N RED BLOOD CELL (test code = RBC) 4.12 x10 6/uL 4.2-5.4 L HEMOGLOBIN (test code = HGB) 10.8 G/DL 12.0-16.0 L HEMATOCRIT (test code = HCT) 35.1 % 37-47 L MEAN CELL VOLUME (test code = MCV) 85.2 FL 81-99 N MEAN CELL HGB (test code = MCH) 26.2 PG 27-31 L MEAN CELL HGB CONCENTRATION (test code = MCHC) 30.8 G/DL 33-37 L RED CELL DISTRIBUTION WIDTH (test code = RDW) 14.6 % 11.5-14.5 H PLATELET COUNT (test code = PLT) 270 x10 3/uL 150-450 N NEUTROPHIL % (test code = NT%) 58.5 % 42-86 N LYMPHOCYTE % (test code = LY%) 34.3 % 24-44 N MONOCYTE % (test code = MO%) 7.2 % 0.0-4.0 H NEUTROPHIL # (test code = NT#) 3.10 x10 3/uL 1.8-7.7 N LYMPHOCYTE # (test code = LY#) 1.90 x10 3/uL 1.0-4.8 N MONOCYTE # (test code = MO#) 0.40 x10 3/uL 0.0-0.8 N CBC W/AUTO [id number] 06:46:00* Test Item Value Reference Range Interpretation Comme nts WHITE BLOOD CELL (test code = WBC) 5.40 x10 3/uL 4.80-10.80 N RED BLOOD CELL (test code = RBC) 4.12 x10 6/uL 4.2-5.4 L HEMOGLOBIN (test code = HGB) 10.8 G/DL 12.0-16.0 L HEMATOCRIT (test code = HCT) 35.1 % 37-47 L MEAN CELL VOLUME (test code = MCV) 85.2 FL 81-99 N MEAN CELL HGB (test code = MCH) 26.2 PG 27-31 L MEAN CELL HGB CONCENTRATION (test code = MCHC) 30.8 G/DL 33-37 L RED CELL DISTRIBUTION WIDTH (test code = RDW) 14.6 % 11.5-14.5 H PLATELET COUNT (test code = PLT) 270 x10 3/uL 150-450 N NEUTROPHIL % (test code = NT%) 58.5 % 42-86 N LYMPHOCYTE % (test code = LY%) 34.3 % 24-44 N MONOCYTE % (test code = MO%) 7.2 % 0.0-4.0 H EOSINOPHIL % (test code = EO%) % 0.0-2.7 BASOPHIL % (test code = BA%) % 0.0-0.5 NEUTROPHIL # (test code = NT#) 3.10 x10 3/uL 1.8-7.7 N LYMPHOCYTE # (test code = LY#) 1.90 x10 3/uL 1.0-4.8 N MONOCYTE # (test code = MO#) 0.40 x10 3/uL 0.0-0.8 N EOSINOPHIL # (test code = EO#) x10 3/uL 0.0-0.5 BASOPHIL # (test code = BA#) x10 3/uL 0.0-0.2 Notes Date/Time Note Provider Source 2022-08-24 04:42:00 [id number] AH0mFfGHwzpLui1BSItoofBn4bt8942-11-91R69:42:00 [facility] PROVIDER REPORTREPORT#:[id number] REPORT STATUS: SignedDATE:08/24/22 TIME: 441 PATIENT: HERVE HERNANDEZ UNIT #: [id number]#: [id number] ROOM/BED:AGE: 21 SEX: F PCP PHYS: South Membreno MDSERVICE AUTHOR: Chuy Xie Jr, MD * ALL edits or amendments must be made on the electronic/computer document * HPI-Ear Pain/Problem/FB Free Text HPI NotesFree Text HPI Mugiu68lq F here c/o right ear pain since yesterday. Denies fever/ear drainage/trauma. GeneralInitial Greet Date/Time 08/24/22 0433 PresentationChief Complaint Ear problem R, PainOnset Occurred YesterdaySymptom Duration Since onsetProgression since Onset Unchanged Review of Systems ROS StatementsAll systems rev neg except as marked.Complete sys rev neg except as marked. Basic Review of SystemsBasic ROS EYES: No redness, RESP: No SOB, CV: No chest pain, GI: No abd pain/vomiting, : No dysuria/frequency, MS: No ext swelling/pain, HEM: No bleeding/bruising, SKIN: No rash, NEURO: No change MS, NEURO: No focal deficit, PSYCH: NLthought content Focused Review of SystemsEars/Nose/ThroatReports: Earache R. Past Medical History - AdultStated Complaint SEVERE EAR PAINAllergiesCoded Allergies:No Known Allergies (01/03/22) Home MedicationsActive ScriptsIBUPROFEN (MOTRIN) 600 MG PO QID PRN PRN PAIN IBUPROFEN (MOTRIN) 600 MG PO QID PRN PRN PAIN #30 TABS Ref 1 Prov: 01/03/22traMADol/APAP (ULTRACET 37.5/325 MG) 1 TAB PO Q4H PRN PRN ACUTE PAIN traMADol/APAP (ULTRACET 37.5/325 MG) 1 TAB PO Q4H PRN PRN ACUTE PAIN #20 TABS Prov: 01/03/22 Reported MedicationsPNV WITH FE FUMARATE/FA () 1 TAB PO DAILY FERROUS SULFATE (FEOSOL) 325 MG PO DAILY Physical Exam Vital SignsVital SignsFirst Documented: Result Date Time Pulse Ox 98 08/24 0432 B/P 174/77 / 0432 B/P Mean 109 / 0432 O2 Delivery Room air 08/24 0432 Temp 97.2 02/ 0432 Pulse 65 02/ 0432 Resp 16 08/24 0432 Last Documented: Result Date Time Pulse Ox 98 / 0432 B/P 174/77 08/24 0432 B/P Mean 109 08/24 0432 O2 Delivery Room air 08/24 0432 Temp 97.2 08/24 0432 Pulse 65 / 0432 Resp 16 08/24 0432 Review of Vital Signs Reviewed Basic Physical ExamBasic PE HEAD: Atraumatic/NC, EYES: PERRL, conj clear, NECK: Supple, RESP: No resp distress, CV: Reg rate rhythm, ABD: Soft/non-tender, EXT: No gross abnormality, SKIN: No rashes, warm/dry, NEURO: alert oriented, NEURO: gross movement NL, PSYCH: NL thought content Focused PEGeneral/Const General/Const Awake, Alert, No acute distress, Well appearing, Well developed, Well hydrated, Well nourished, Cooperative, Not toxic appearingEars/Nose/Throat Right Ear/Mastoid Tympanic membrane red, Tympanic membrane bulging, Fluid behind TM clear. Re-Evaluation MDM Free Text MDM NotesFree Text MDM NotesGiven Abx/pain med in ER.Will Rx meds for symptom relief at home. ED CourseMedication(s) OrderedMedication(s) Ordered:Anti-Infective Agents Sig/Priyanka Start time Last Medication Dose Route Stop Time Status Admin Amoxicillin/ 875 MG X1ED STA 08/24 440 DC 08/24 Clavulanate Potassium PO 08/24 441 0445 Central Nervous System Agents Sig/Priyanka Start time Last Medication Dose Route Stop Time Status Admin Hydrocodone Bitart/ 1 TAB X1ED STA 08/24 440 DC 08/24 Acetaminophen PO 08/24 Patient Discharge Departure Vital Signs/ConditionVital SignsFirst Documented: Result Date Time Pulse Ox 98 08/24 0432 B/P 174/77 08/24 0432 B/P Mean 109 08/24 0432 O2 Delivery Room air 08/24 0432 Temp 97.2 / 0432 Pulse 65 02/ 0432 Resp 16 / 0432 Last Documented: Result Date Time Pulse Ox 98 / 0432 B/P 174/77 08/24 0432 B/P Mean 109 / 0432 O2 Delivery Room air 08/24 0432 Temp 97.2 / 0432 Pulse 65 / 0432 Resp 16 08/24 0432 All vital signs available at the time of this entry have been reviewed. Condition Stable Clinical ImpressionClinical ImpressionPrimary Impression: Right otitis media Disposition DecisionDischarge )( Discharged to Home Yes )( Time 0500 )( Date 08/24/22 Discharge/Care Plan(Auto) PrescriptionsCurrent Visit ScriptsCEFDINIR (OMNICEF) 300 MG PO Q12H CEFDINIR (OMNICEF) 300 MG PO Q12H #14 CAPS PSEUDOEPHEDRINE ER (SUDAFED 12 HR) 120 MG PO Q12H PSEUDOEPHEDRINE ER (SUDAFED 12 HR) 120 MG PO Q12H #14 TABS predniSONE 60 MG PO DAILY predniSONE 60 MG PO DAILY #21 TABS UNTIL FINISHED (7 DAYS) Patient Instructions ED Otitis Media AdultAdditional InstructionsTake new medications as directed.Recommend Advil/Motrin/Aleve as needed for ear pain. at 0503RPT #:[id number] OF REPORTEDEmergency department ezznio6674-53-83N77:42:00D.HLBW19560670-7202PUVtv ilable for patient aqunGDEOYGMQBPONMP7260-77-46I56:03:42 [facility] 2022-02-06 16:11:00 [id number] IqeE6kvbbGENZ9y2zGVoakigoUl9I 8SAbsYzb2whJ7O9wSeiP1zYlnmTsm9PJ3551-45-76M32:11: [id number] [place], [place] PATIENT NAME: HERVE HERNANDEZ ADMIT DATE: 01/03/22ACCOUNT NO: [id number] ROOM NO: D.Y212 AGE: 21 REPORT TYPE: 360 - QUERY RESPONSE DOCUMENT SEX: F ADMITTING PHYSICIAN:South Membreno MD ATTENDING PHYSICIAN:[place] Membreno MD Provider Query QUERY TEXT: Condition General 360MD Query related questions should be directed to: [facility] Coding Query Helpline Based on your clinical judgment, can you please clarify if Pre-eclampsia was confirmed, Pre-eclampsia was not confirmed, or other more appropriate diagnosis? The patient's Clinical Indicators include:Assessment and Plan: 2) Mild to moderate pre-eclampsia, third trimester - H and P S, 01/07Free text A P: POD#1 s/p rpt c/s with development of severe PIH PP. Has required hydralazine x 2 doses total - OB Postpart Progr Note 01/04Pre-procedure diagnosis: SIUP at 39w0d, Previous Section for Elective Repeat - OP Note, 01/03 Options provided:-- Respond - Create new note now-- Dismiss - Not applicable / Not valid-- Dismiss - Clinically unable to determine / Unknown-- Assign to another provider QUERY RESPONSE: Severe preeclampsia was confirmed. Query created by: Radha Maldonado on 02/01/2022 3:19 AM at 1611 PATIENT NAME: HERVE HERNANDEZ noteD.[id number] for patient lvbrAXCYZBEYBOCHZH7089-89-45X69:12:31 [facility] 2022-01-14 21:35:00 [id number] 3/c70z9pJTZMHMqFWdNeed93brKXx NUwaJTS/DwAQgSIwfFUInRACgU5OFuSz9502-14-69P70:35: [id number] [place], [place] PATIENT NAME: HERVE HERNANDEZ ADMIT DATE: 01/03/22ACCOUNT NO: [id number] ROOM NO: D.Y212 AGE: 21 REPORT TYPE: 360 - QUERY RESPONSE DOCUMENT SEX: F ADMITTING PHYSICIAN:South Membreno MD ATTENDING PHYSICIAN:[place] Membreno MD Provider Query QUERY TEXT: Specificity General 360MD Query related questions should be directed to:[facility] Coding Query Helpline Please provide any known specificity for IRON DEFICIENCY ANEMIA documented in the H AND P S 01/08/20. Acute blood loss anemiaIron deficiency anemiaAnemia, other specifiedAnemia , unspecified The patient's Clinical Indicators include: DELIVERYEBL at delivery (ml's): 810 HEMATOCRIT (%) 28.5LHEMOGLOBIN (G/DL) 9.1L - 01/03/22 HEMATOCRIT (%) 25.7LHEMOGLOBIN (G/DL) 8.2L - 01/04/22 IRON DEFICIENCY ANEMIA - H AND P S 01/07/ VITS W-CA,FE,FA(<1MG) 1 TABLET 09:12 1 EACH Oral Options provided:-- Respond - Create new note now-- Dismiss - Not applicable / Not valid-- Dismiss - Clinically unable to determine / Unknown-- Assign to another provider QUERY RESPONSE: Nutritional iron deficiency anemia (throughout her -despite po iron and an iron infusion) Query created by: Kaila Plunkett on 01/10/2022 4:10 AM at 8058 PATIENT NAME: HERVE HERNANDEZ noteD.[id number] for patient scaqFHMUPMPIKFDIAT8410-09-45L75:36:01 [facility] 2022-01-06 08:40:00 [id number] ReGXs1sxFiZdN/IJVC1BX6ajU60IX urt3xGGdJ0ccn9xMGokeZNRHt08FnyCk6390-58-01J97:40: 00 [facility] ([facility])OB Postpart Progr NoteREPORT#:[id number] REPORT STATUS: SignedDATE:01/06/22 TIME: 0840 PATIENT: HERVE HERNANDEZ UNIT #: [id number]#: [id number] [address] AGE: 21 SEX: F ATTEND: South Membreno MDA AUTHOR: Corby Sullivan MD * ALL edits or amendments must be made on the electronic/computer document * Subjective SubjectiveAdmission EGA: Weeks: 39 Days: 0EGA at delivery (wks/days): 39 weeksStatus/Day: post operative (day 3)Patient reports: Patient reports: Yes normal lochia, Yes pain management effective Objective Nursing Documentation ReviewNursing Data:The data set between the solid lines has been imported from nursing documentation. Any exceptions have been noted below under Provider comments. Feeding preference: Post hemorrhage risk score: Medium Risk for Hemorrhage. Provider comments on imported nursing data: [] GeneralVS:Vital Signs: Date Time Temp Pulse Resp B/P B/P Pulse O2 O2 Flow FiO2 Mean Ox Delivery Rate 01/06 0500 98.5 88 18 136/88 01/06 0041 98.5 86 18 128/62 01/05 1940 98.4 55 18 135/69 01/05 1617 97.9 70 18 128/82 PATIENT WEIGHT: Weight (lb): Weight (oz): Weight (kg): Physical ExamNeuro: Exam: alert, oriented x3, normal speechAbdomen: soft, no abnormal tendernessIncision site: well approximated edges, dryUterus: firm, involution appropriate, non-tender Diagnosis, Assessment Plan Diagnosis, Assessment PlanAssessment: nml progressPlan: routine care, discharge tomorrowPlan discussed with: patient at 0842 RPT #:[id number] OF REPORTPRProgress jrka0608-00-47S32:40:00D.WZHS45272842-7480QIMifpb able for patient eqiyBJNMDMHKDEUKZD8852-35-93I23:42:17 [facility] 2022-01-05 07:27:00 [id number] VnfeIJIYPQXk9bdXh4g+j7IpchyGf hejJke6a3CLXeahgFbCDuSbn4qhYKlad0526-88-72J46:27: 00 [facility] ([facility])OB Postpart Progr NoteREPORT#:[id number] REPORT STATUS: SignedDATE:01/05/22 TIME: 726 PATIENT: HERVE HERNANDEZ UNIT #: [id number]#: [id number] ROOM/BED: N097-8CHC: 02 AGE: 21 SEX: F ATTEND: [place] Membreno [facility] AUTHOR: Julieta Posadas APRNNP * ALL edits or amendments must be made on the electronic/computer document * Julieta Posadas 01/05/2227:Subjective SubjectiveAdmission EGA: Weeks: 39 Days: 0EGA at delivery (wks/days): 39 weeksStatus/Day: post operative (day 2)Patient reports: Patient reports: Yes no complaints, Yes normal lochia, Yes pain management effective, Yes tolerating po well, Yes voiding well, Yes voiding without pain, Yes tolerating ambulation, Yes flatus, No bowel movement, No nausea, No vomiting Objective Nursing Documentation ReviewNursing Data:The data set between the solid lines has been imported from nursing documentation. Any exceptions have been noted below under Provider comments. Feeding preference: Post hemorrhage risk score: High Risk for Hemorrhage. Provider comments on imported nursing data: [] GeneralVS:Vital Signs: Date Time Temp Pulse Resp B/P B/P Pulse O2 O2 Flow FiO2 Mean Ox Delivery Rate 01/05 0414 97.7 59 18 117/78 97 01/04 2300 98.8 67 18 148/64 98 01/04 2010 98.8 62 20 137/78 01/04 1415 98.5 71 18 134/85 97 01/04 1339 66 96 01/04 1334 66 94 01/04 1332 58 93 01/04 1329 65 95 01/04 1324 59 92 01/04 1319 58 92 01/04 1314 60 92 01/04 1309 61 93 01/04 1304 60 93 06/16 1302 58 94 06/16 1259 61 95 06/16 1257 62 94 06/16 1254 73 95 06/16 1252 60 94 06/16 1249 71 91 06/16 1244 64 91 06/16 1241 105.0 06/16 1241 63 138/81 06/16 1239 60 92 06/16 1234 58 93 06/16 1229 58 93 06/16 1227 59 94 06/16 1224 67 96 06/16 1219 56 94 06/16 1214 56 94 06/16 1211 100.0 06/16 1211 54 134/75 06/16 1209 56 94 06/16 1204 55 94 06/16 1159 54 94 06/16 1154 59 94 06/16 1149 56 94 06/16 1146 60 94 06/16 1144 61 94 06/16 1141 104.0 06/16 1141 62 136/80 06/16 1139 60 94 06/16 1138 63 94 06/16 1134 59 95 06/16 1129 56 95 06/16 1126 74 94 06/16 1124 73 96 06/16 1119 71 96 06/16 1114 60 96 06/16 1109 90.0 06/16 1109 58 126/69 96 06/16 1104 66 96 06/16 1059 79 97 06/16 1054 73 96 06/16 1049 63 96 06/16 1047 84.0 06/16 1047 56 120/59 06/16 1045 60 94 06/16 1044 61 95 06/16 1039 60 95 06/16 1034 62 96 06/16 1029 68 96 06/16 1024 64 96 06/16 1019 78 96 06/16 1014 70 97 06/16 1009 71 96 06/16 1004 63 95 06/16 0959 58 95 06/16 0954 60 96 06/16 0949 64 96 06/16 0944 64 95 06/16 0939 63 95 06/16 0938 62 94 06/16 0934 59 95 06/16 0929 64 95 06/16 0924 63 96 06/16 0919 69 96 06/16 0914 62 95 06/16 0909 97.0 06/16 0909 60 133/74 96 06/16 0907 68 92 06/16 0904 65 95 06/16 0859 68 96 06/16 0854 70 96 06/16 0849 63 96 06/16 0844 68 95 06/16 0839 61 96 06/16 0834 74 96 06/16 0829 65 96 06/16 0824 62 93 06/16 0819 59 95 06/16 0814 65 96 06/16 0809 102.0 06/16 0809 61 144/71 96 06/16 0804 61 96 06/16 0800 97.7 06/16 0759 68 97 06/16 0754 76 95 06/16 0749 67 96 06/16 0747 71 93 06/16 0744 57 94 06/16 0739 59 94 06/16 0734 59 94 06/16 0733 62 94 06/16 0729 58 94 PATIENT WEIGHT: Weight (lb): Weight (oz): Weight (kg): Physical ExamLungs: no distressNeuro: Exam: alert, oriented p6Gddwbrc: no abnormal tendernessIncision site: well approximated edges, no drainage, no inflammationUterus: firm, involution appropriateFundus: firm, at the umbilicusLochia: normalLower extremities: Edema: trace Calf tenderness: negative Diagnosis, Assessment Plan Diagnosis, Assessment PlanFree text A P:Post op day 2, BP stable on Labetolol. Plan: routine care, discharge today (pending discharge)Plan discussed with: patientComments:Discussed with patient in detail;Follow up appointment, medication instructions, Lucie-care, incisional care, breast care, diet, activity, pelvic rest, post- emotional changes/resources, when to seek emergency care and signs of complications. Angy Hackett I 01/05/22 0840:Diagnosis, Assessment Plan Diagnosis, Assessment PlanFree text A P:The patient was seen and examined, she would like to stay as her baby is still in NICUAssessment: nml progressPlan: routine care at 0733 at 0841 RPT #:[id number] OF REPORTPRProgress gsmx0780-04-22F14:27:00D.NTCW50660937-0364HHWzhbg able for patient bmfrTCUPULDBXRPAEP0885-61-24H18:33:56 [facility] 2022-01-04 07:16:00 [id number] 2OrJiqbb25aUP7aWpDwsRVpC/noiF wkwuJIlRoGWJC2vMf5jJxpBjePX90ji19305-69-95Q10:16: 00 [facility] ([facility])OB Postpart Progr NoteREPORT#:[id number] REPORT STATUS: SignedDATE:01/04/22 TIME: 715 PATIENT: HERVE HERNANDEZ UNIT #: [id number]#: [id number] [address] AGE: 21 SEX: F ATTEND: South Membreno MDA AUTHOR: Diana Welsh MD * ALL edits or amendments must be made on the electronic/computer document * Subjective SubjectiveAdmission EGA: Weeks: 39 Days: 0EGA at delivery (wks/days): 39 weeksStatus/Day: post operative (day 1)Patient reports: Patient reports: Yes normal lochia, Yes pain management effective, Yes tolerating po well, No excessive bleedingNursing reports: Comments:good uop; pt on magSO4 Objective Nursing Documentation ReviewNursing Data:The data set between the solid lines has been imported from nursing documentation. Any exceptions have been noted below under Provider comments. Feeding preference: Post hemorrhage risk score: High Risk for Hemorrhage. Provider comments on imported nursing data: [] GeneralVS:Vital Signs: Date Time Temp Pulse Resp B/P B/P Pulse O2 O2 Flow FiO2 Mean Ox Delivery Rate 06/16 0659 58 94 06/16 0656 57 94 06/16 0654 59 94 06/16 0649 56 94 06/16 0644 57 94 06/16 0639 58 94 06/16 0634 58 94 06/16 0629 56 94 06/16 0627 58 94 06/16 0624 59 94 06/16 0619 58 93 06/16 0614 58 94 06/16 0609 92.0 06/16 0609 56 128/73 94 06/16 0604 60 94 06/16 0600 16 06/16 0559 58 94 06/16 0554 59 95 06/16 0553 65 94 06/16 0549 60 95 06/16 0546 58 94 06/16 0544 57 95 06/16 0539 59 95 06/16 0536 64 94 06/16 0534 62 96 06/16 0529 61 97 06/16 0524 69 96 06/16 0522 69 94 06/16 0519 71 96 06/16 0514 55 94 06/16 0510 81.0 06/16 0510 56 130/56 06/16 0509 56 94 06/16 0504 56 93 06/16 0459 54 94 06/16 0454 56 93 06/16 0449 54 94 06/16 0444 55 94 06/16 0439 54 94 06/16 0429 55 94 06/16 0426 54 94 06/16 0424 59 95 06/16 0420 56 94 06/16 0419 55 95 06/16 0414 57 95 06/16 0409 67 95 06/16 0404 65 94 06/16 0400 97.6 16 06/16 0359 57 95 06/16 0358 57 94 06/16 0355 90.0 06/16 0355 55 130/67 06/16 0354 57 95 06/16 0353 56 94 06/16 0349 56 94 06/16 0348 55 94 06/16 0344 55 94 06/16 0343 56 94 06/16 0339 56 94 06/16 0338 55 94 06/16 0334 55 94 06/16 0332 55 94 06/16 0329 55 94 06/16 0327 56 94 06/16 0325 81.0 06/16 0325 52 113/60 06/16 0324 56 94 06/16 0320 55 94 06/16 0319 56 94 06/16 0314 55 94 06/16 0309 56 94 06/16 0308 56 94 06/16 0304 56 94 06/16 0302 57 94 06/16 0259 58 95 06/16 0256 65 93 06/16 0255 86.0 06/16 0255 57 114/71 06/16 0254 57 94 06/16 0251 55 94 06/16 0249 56 94 06/16 0245 57 94 06/16 0244 57 94 06/16 0239 58 94 06/16 0234 57 94 06/16 0229 61 94 06/16 0228 61 94 06/16 0225 88.0 06/16 0225 62 120/66 06/16 0224 67 95 06/16 0222 61 94 06/16 0219 57 95 06/16 0217 57 94 06/16 0214 56 94 06/16 0212 57 94 06/16 0209 58 95 06/16 0204 57 94 06/16 0202 58 94 06/16 0159 55 95 06/16 0156 54 94 06/16 0155 83.0 06/16 0155 54 115/64 06/16 0154 55 94 06/16 0151 55 94 06/16 0149 55 94 06/16 0145 56 94 06/16 0144 58 95 06/16 0140 57 94 06/16 0139 56 95 06/16 0134 59 94 06/16 0129 58 94 06/16 0125 81.0 06/16 0125 55 111/61 94 06/16 0124 58 94 06/16 0120 57 94 06/16 0118 61 96 06/16 0114 60 94 06/16 0113 58 93 06/16 0110 14 06/16 0108 58 94 06/16 0103 58 94 06/16 0100 60 94 06/16 0058 58 94 06/16 0055 82.0 06/16 0055 59 113/60 06/16 0054 57 94 06/16 0053 59 95 06/16 0048 58 93 06/16 0043 58 93 06/16 0038 58 94 06/16 0033 60 94 06/16 0028 59 94 06/16 0027 59 94 06/16 0025 81.0 06/16 0025 56 114/60 06/16 0023 62 94 06/16 0021 59 94 06/16 0018 68 97 06/16 0016 59 94 06/16 0015 97.9 14 06/16 0013 59 95 06/16 0011 59 94 06/16 0008 59 95 06/16 0003 53 95 06/15 2358 54 95 06/15 2356 78.0 06/15 2356 51 105/59 06/15 2353 53 95 06/15 2351 55 94 06/15 2348 56 95 06/15 2343 60 95 06/15 2341 58 94 06/15 2338 60 95 06/15 2336 60 94 06/15 2333 54 94 06/15 2328 54 95 06/15 2326 81.0 06/15 2326 54 115/57 06/15 2323 57 94 06/15 2318 65 94 06/15 2315 63 94 06/15 2313 66 96 06/15 2308 68 95 06/15 2303 60 96 06/15 2300 14 06/15 2258 57 95 06/15 2256 82.0 06/15 2256 70 117/57 06/15 2253 60 95 06/15 2248 61 96 06/15 2243 63 96 06/15 2238 65 96 06/15 2233 66 97 06/15 2228 58 96 06/15 2226 77.0 06/15 2226 57 106/57 06/15 2223 56 96 06/15 2218 54 96 06/15 2213 56 95 06/15 2208 64 96 06/15 2203 63 96 06/15 2158 68 96 06/15 2156 82.0 06/15 2156 63 111/58 94 06/15 2153 64 95 06/15 2151 61 94 06/15 2148 72 96 06/15 2146 78 93 06/15 2143 65 96 06/15 2138 75 94 06/15 2133 63 95 06/15 2132 59 94 06/15 2128 66 95 06/15 2126 64 94 06/15 2125 88.0 06/15 2125 59 125/62 06/15 2123 55 94 06/15 2121 68 94 06/15 2118 62 94 06/15 2114 65 93 06/15 2113 62 95 06/15 2108 63 94 06/15 2105 14 06/15 2103 66 95 06/15 2102 64 94 06/15 2058 66 96 06/15 2055 88.0 06/15 2055 70 128/61 06/15 2053 70 96 06/15 2048 67 95 06/15 2043 62 96 06/15 2040 63 94 06/15 8 70 96 06/15 2033 61 94 06/15 8 62 95 06/15 2025 93.0 06/15 2025 61 123/72 06/15 2023 64 94 06/15 2022 62 95 06/15 2018 63 94 06/15 2017 64 95 06/15 2012 65 96 06/15 2009 97.9 14 06/15 2007 62 94 06/15 2005 64 94 06/15 2002 65 96 06/15 1958 63 96 06/15 1955 89.0 06/15 1955 75 122/65 06/15 1954 61 94 06/15 1953 76 96 06/15 1949 62 94 06/15 1948 63 95 06/15 1943 68 96 06/15 1938 72 96 06/15 1933 67 96 06/15 1928 66 96 06/15 1925 90.0 06/15 1925 66 122/66 06/15 1923 66 95 06/15 1918 68 96 06/15 1913 68 96 06/15 1908 64 96 06/15 1906 65 94 06/15 1903 63 96 06/15 1900 18 06/15 1900 62 94 06/15 1858 64 95 06/15 1856 88.0 06/15 1856 57 125/62 06/15 1855 63 94 06/15 1853 66 95 06/15 1850 65 94 06/15 1848 63 95 06/15 1843 63 95 06/15 1838 60 95 06/15 1836 64 94 06/15 1833 66 95 06/15 1831 64 94 06/15 1828 66 96 06/15 1825 92.0 06/15 1825 64 123/74 06/15 1823 65 95 06/15 1818 67 96 06/15 1813 63 96 06/15 1808 70 97 06/15 1803 63 96 06/15 1800 18 06/15 1758 70 96 06/15 1755 98.0 06/15 1755 68 138/72 06/15 1753 62 95 06/15 1752 64 94 06/15 1748 64 96 06/15 1743 69 96 06/15 1740 108.0 06/15 1740 62 150/80 06/15 1738 63 96 06/15 1733 64 95 06/15 1728 71 96 06/15 1723 62 96 06/15 1718 110.0 06/15 1718 67 150/82 97 06/15 1713 70 162/90 96 06/15 1709 72 93 06/15 1708 71 94 06/15 1703 128.0 06/15 1703 63 174/97 97 06/15 1700 18 06/15 1658 75 98 06/15 1653 64 97 06/15 1648 64 97 06/15 1645 120.0 06/15 1645 60 163/93 06/15 1643 68 98 06/15 1638 77 98 06/15 1633 63 97 06/15 1628 63 97 06/15 1623 63 97 06/15 1618 68 96 06/15 1613 66 97 06/15 1608 57 97 06/15 1603 65 98 06/15 1600 18 06/15 1558 53 96 06/15 1556 117.0 06/15 1556 57 163/91 06/15 1553 59 96 06/15 1548 59 96 06/15 1543 60 97 06/15 1527 71 95 06/15 1523 71 93 06/15 1522 70 94 06/15 1518 108.0 06/15 1518 63 145/84 06/15 1517 63 95 06/15 1512 60 95 06/15 1511 63 94 06/15 1507 62 96 06/15 1502 62 96 06/15 1500 98.0 18 06/15 1458 116.0 06/15 1458 61 148/93 06/15 1457 63 96 06/15 1456 60 94 06/15 1452 60 95 06/15 1450 61 94 06/15 1447 60 95 06/15 1445 60 94 06/15 1442 62 95 06/15 1439 59 94 06/15 1438 107.0 06/15 1438 59 149/81 06/15 1437 60 96 06/15 1434 61 94 06/15 1432 62 95 06/15 1429 62 94 06/15 1427 60 95 06/15 1422 64 96 06/15 1418 96.0 06/15 1418 68 123/80 06/15 1417 68 97 06/15 1412 64 96 06/15 1407 62 96 06/15 1402 62 96 06/15 1400 18 06/15 1357 117.0 06/15 1357 65 151/95 96 06/15 1352 98.0 18 06/15 1352 61 94 06/15 1350 60 94 06/15 1347 112.0 06/15 1347 60 146/90 94 06/15 1344 61 94 06/15 1342 18 06/15 1342 62 95 06/15 1337 110.0 06/15 1337 60 145/87 96 06/15 1332 18 06/15 1332 63 95 06/15 1327 109.0 06/15 1327 67 143/86 97 06/15 1322 18 06/15 1322 68 96 06/15 1317 115.0 06/15 1317 66 148/93 96 06/15 1312 18 06/15 1312 72 96 06/15 1307 117.0 06/15 1307 71 150/94 97 06/15 1302 18 06/15 1302 70 97 06/15 1257 116.0 06/15 1257 68 150/93 97 06/15 1252 18 06/15 1252 62 98 06/15 1247 121.0 06/15 1247 63 159/94 97 06/15 1242 18 06/15 1242 62 97 06/15 1237 121.0 06/15 1237 66 161/94 97 06/15 1232 18 06/15 1232 66 98 06/15 1227 68 97 06/15 1226 121.0 06/15 1226 76 157/91 06/15 1222 18 06/15 1222 70 98 06/15 1219 122.0 06/15 1219 71 170/93 06/15 1217 74 98 06/15 1212 18 06/15 1212 70 98 06/15 1207 62 96 06/15 1202 18 06/15 1202 61 96 01/03 1157 60 96 01/03 1155 158/98 01/03 1152 56 97 01/03 1150 134.0 01/03 1150 67 172/104 01/03 1147 131.0 01/03 1147 60 180/102 100 01/03 1145 129.0 01/03 1145 62 171/97 01/03 1142 98.2 18 01/03 1142 125.0 01/03 1142 67 169/94 98 01/03 0932 115.0 01/03 0932 78 158/88 01/03 0822 125.0 01/03 0822 73 157/103 01/03 0814 98.0 01/03 0801 121.0 01/03 0801 87 145/104 PATIENT WEIGHT: Weight (lb): Weight (oz): Weight (kg): Physical ExamLungs: no distressNeuro: Exam: alert, oriented v4Ieghkkq: no abnormal tendernessIncision site: well approximated edges, no drainage, no inflammationFundus: firm, at the umbilicus ResultFindings/Data:Laboratory Tests: 01/04 01/03 01/03 01/03 0520 1308 1212 0830Chemistry Sodium (133 - 145 MMOL/L) 138 Potassium (3.6 - 5.2 MMOL/L) 4.2 Chloride (100 - 108 MMOL/L) 105 Carbon Dioxide (22 - 32 MMOL/L) 22 BUN (6 - 20 MG/DL) 8 Creatinine (0.60 - 1.00 MG/DL) 0.55 L Estimated GFR (MDRD) (71 - 165) 142 Glucose (65 - 99 MG/DL) 89 Uric Acid (2.6 - 6.0 MG/DL) 3.3 Calcium (8.7 - 10.5 MG/DL) 7.5 L Total Bilirubin (0.0 - 1.0 MG/DL) 0.2 AST (15 - 37 Units/L) 14 L ALT (30 - 65 Units/L) 12 L Alkaline Phosphatase (50 - 130 Units/L) 102 Lactate Dehydrogenase (81 - 234 Units/L) 153 Total Protein (6.4 - 8.2 G/DL) 5.8 L Albumin (3.4 - 5.0 G/DL) 2.0 L Globulin (1.5 - 3.8 G/DL) 3.8 Albumin/Globulin Ratio (1.1 - 2.2) 0.5 LHematology WBC (4.80 - 10.80 x10 3/uL) 10.04 RBC (4.2 - 5.4 x10 6/uL) 3.42 L Hgb (12.0 - 16.0 G/DL) 8.2 L 9.1 L Hct (37 - 47 %) 25.7 L 28.5 L MCV (81 - 99 FL) 83.3 MCH (27 - 31 PG) 26.6 L MCHC (33 - 37 G/DL) 31.9 L 31.9 L RDW Coeff of Ayush (11.5 - 14.5 %) 18.6 H Plt Count (150 - 450 x10 3/uL) 178 MPV (7.4 - 10.4 FL) 12.8 H Neut % (Auto) (42 - 86 %) 79.5 Lymph % (Auto) (24 - 44 %) 13.8 L Mason % (Auto) (0.0 - 4.0 %) 5.2 H Eos % (Auto) (0.0 - 2.7 %) 0.6 Baso % (Auto) (0.0 - 0.5 %) 0.5 Eos # (Auto) (0.0 - 0.5 x10 3/uL) 0.06 Baso # (Auto) (0.0 - 0.2 x10 3/uL) 0.05 Abs Immat Gran (auto) (0.00 - 0.03 0.04 Hx10 3/uL) Absolute Neuts (auto) (1.8 - 7.7 x10 3/uL) 7.98 H Absolute Lymphs (auto) (1.0 - 4.8 1.39x10 3/uL) Absolute Monos (auto) (0.0 - 0.8 x10 3/uL) 0.52 Absolute Nucleated RBC (0.0 - 0.2 0.0X10 3/uL) Immature Gran % (0.0 - 2.0 %) 0.4 Nucleated RBC % (0.0 - 0.0 %) 0.0Serology SARS CoV-2 RNA Rapid HYACINTH (Negative) NegativeUrines Ur Random Creatinine (MG/DL) 33.97 U Random Total Protein (MG/DL) 70 Protein/Creatinin Ratio (< 0.2) 2.1 H Diagnosis, Assessment Plan Diagnosis, Assessment PlanFree text A P:POD#1 s/p rpt c/s with development of severe PIH PP.Has required hydralazine x 2 doses total. Currently on labetalol 100mg po q 12hr with stable BPsgood uop - no e/o mag toxicity Overall recovering appropriatelyWill cont mag for 24hr from delivery then d/c use and if stable, TTF at 0718 RPT #:[id number] OF REPORTPRProgress xaqg2536-04-65M20:16:00D.DTAR99082011-0184VAQjfrh able for patient rgxzRCSHSSHMVYTMDH4141-69-25P37:18:38 [facility] 2022-01-03 14:12:00 [id number] rzNJSW5KZ7NuMj8s9FZuPF8GqB8o1 Fh/GlufELP67VyTUIF1o2FkcJB7AG9uC9881-94-79A45:12: [id number] [place], [place] PATIENT NAME: HERVE HERNANDEZ ADMIT DATE: 01/03/22ACCOUNT NO: [id number] ROOM NO: D.Y212 AGE: 21 REPORT TYPE: OPERATIVE REPORT SEX: F ADMITTING PHYSICIAN:South Membreno MD ATTENDING PHYSICIAN:South Membreno MD OPERATION DATE: 01/03/2022 PREOPERATIVE DIAGNOSES:1. Billings intrauterine at 39 weeks and 0 days.2. Previous section for elective repeat . POSTOPERATIVE DIAGNOSES:1. Billings intrauterine at 39 weeks and 0 days.2. Previous section for elective repeat . PROCEDURE PERFORMED: Secondary low transverse section via Pfannenstielskin incision. PRIMARY SURGEON: South Membreno MD HOME HEALTH CARE SOCIAL WORKER: Joe Taylor. ANESTHESIOLOGIST: Gab Jackman CRNA. ANESTHESIA: Spinal anesthetic. OPERATIVE FINDINGS: Included:1. Omental adhesions.2. Normal-appearing uterus, tubes, and ovaries.3. Liveborn male in cephalic, right occiput transverse position with Apgars of9 at 1 minute and 9 at 5 minutes and a weight of 7 pounds 15 ounces or 3590grams and 4 normal-appearing placenta. COMPLICATIONS: None. ESTIMATED BLOOD LOSS: 804 mL. SPECIMENS REMOVED: Abdominal wall scar, which was excised and discarded. DISPOSITION: The patient went to the recovery room in stable condition. PROCEDURE IN DETAIL: Ms. Hernandez was taken to the OR and placed on the table inthe dorsal supine position where spinal anesthesia was noted to be adequate. Her abdomen was prepped and draped in the normal sterile fashion and her abdominal wall was inspected. She was noted to have a large scar with keloid from her previous section. This was tented up with Allis clamps and then incised with a scalpel. It was further excised using the Bovie cautery and it was discarded. The subcutaneous tissue was further incised using the Bovie for PATIENT NAME: HERVE HERNANDEZ cautery and extended down to the level of the rectus fascia, which was nicked inthe midline, tented up with pickups with teeth and incised with Diaz scissors.At this time, Jaciel clamps were applied to the inferior aspect of the rectusfascia and it was sharply dissected away from the underlying lower uterinesegment using Diaz scissors. At this time, attention was turned to the superioraspect of the fascia, which was treated in similar fashion. The rectus muscleswere then tented up with hemostat clamps and incised using a scalpelsuperficially. A small incision was made into the peritoneal cavity andpalpation was performed to ensure that there was no bowel or bladder adherent tothe parietal peritoneum. When the parietal peritoneum was noted to be free ofadhesions, the Diaz scissors were used to incise the parietal peritoneum bothinferiorly and superiorly. The parietal-peritoneal opening was then extendedbluntly. At this time, the bladder blade was applied and the uterus wasobserved and appeared to be normal. The vesicouterine peritoneum was thentented up using Bangladeshi forceps and incised using Metzenbaum scissors. The bladder blade was then reapplied. The lower uterine segment was then incised in curvilinear fashion using the scalpel and the incision was carried forward using the bandage scissors. The membranes were ruptured and noted to be clear and then the head of a right occiput transverse infant in compound presentation with the right hand presenting alongside the face was delivered.This was followed by the shoulders and body of a liveborn male , weighing7 pounds 15 ounces with Apgars 9 at 1 minute and 9 at 5 minutes. The cord wasdoubly clamped and cut and the infant was handed off to the awaiting neonatalstaff. At this time, cord bloods were collected and the placenta was manuallyremoved. The uterus was then exteriorized, cleared of all clots and debris andrepaired in 2 layers using 0 Vicryl suture in continuous interlocking fashion.At this time, the uterus was inspected prior to closing its incision. 1000 mcg of Cytotec were placed into the uterus to facilitate uterine contractions and hemostasis. After repair of the lower uterine segment, Surgicel powder wasapplied and the uterus was inspected and noted to be hemostatic. The abdomenwas irrigated and cleared of all clots and debris and the uterus was returned tothe abdomen. At this time, the parietal peritoneum and rectus muscles wereclosed together using 2-0 chromic suture in continuous fashion. The rectusfascia was then reapproximated using 0 Vicryl suture in continuous fashion andthe subcutaneous tissue was irrigated and it was repaired at the layer of theCamper's fascia using 0 plain suture in continuous fashion. The skin wasreapproximated using 3-0 Monocryl suture and a pressure dressing was applied.The patient went to the recovery room in stable condition having tolerated theprocedure well. Dictated By: South Membreno MD WT: OP:DALLYSON/MELCHOR./NTSDD: 01/03/2022 14:12:45DT: 01/03/2022 21:36:30Conf#: [id number]/DID#: [id number] Authenticated and Edited by South Membreno MD On 01/14/22 3:31:13 PM at 0333 PATIENT NAME: HERVE HERNANDEZ jsmimm0785-67-13N71:36:00D.[id number] lable for patient exbnIQSYEVFPHQQOAL4514-54-28N77:25:13 [facility] 2022-01-03 13:12:00 [id number] b3X8SYD9J9PPu+IzSsFGCgBvaQLLk zZGPabUyTkE0vodyna9AStaSjwPcfdZV3276-91-10C66:12: 00 [facility] ([facility])Operative Note - FullREPORT#:[id number] REPORT STATUS: SignedDATE:01/03/22 TIME: 1312 PATIENT: HERVE HERNANDEZ UNIT #: [id number]#: [id number] ROOM/BED: A176-0KDO: 02 AGE: 21 SEX: F ATTEND: South Membreno AUTHOR: South Membreno MD * ALL edits or amendments must be made on the electronic/computer document * Operative ReportStart date: 01/03/22Start time: 1014Pre-procedure diagnosis:SIUP at 85c3aLvymqryo Section for Elective Repeat CesareanPost-procedure diagnosis:SIUP at 33d9hWbbgyafq Section for Elective Repeat CesareanProcedures performed:Secondary Low Transverse Section via Pfannensteil Skin IncisionTechnique/Procedure:Secondary Low Transverse Section via Pfannensteil Skin IncisionPrimary Surgeon: Johann Barlowistant(s): Joe SyedAnesthesiologist:Gab Jackman CRNAAnesthesia: spinal anestheticOperative findings:Omental AdhesionsNormal Appearing Uterus, Tubes and OvariesLB Male, Cephalic, ROT, Apgars 9,9, Weight 7lbs 15 oz (3590 gms)Normal appearing placentaComplications: noneEstimated blood loss in ml's: 804 ccSpecimens removed/altered: Abdominal wall scar-discardedImplant(s): noneDisposition: PACU, return to floor, stableCounts: Sponge count: correct Instrument count: correct Needle count: correctDictation number:[id number] at 1413 [facility] #:[id number] OF REPORTOPOperative sewbov5855-05-21I52:12:00D.ZRRD70290743-6397KDIwx ilable for patient qxfeWBYKSTYRHUZHMT4260-65-89A07:13:21 [facility] 13:08:00 [id number] 7qsfe/TryZhaFYln1we0Rnb1FA6p0 jxteBwUhh1/3rpoRPXbDIYhG5uIWFTuh4398-42-42G76:08: 00 [facility] ([facility])OB Delivery NoteREPORT#:[id number] REPORT STATUS: SignedDATE:01/03/22 TIME: 1308 PATIENT: HERVE HERNANDEZ UNIT #: [id number]#: [id number] [address]FFM: 02 AGE: 21 SEX: F ATTEND: South Membreno [facility] AUTHOR: South Membreno MD * ALL edits or amendments must be made on the electronic/computer document * OB Delivery Pre-deliveryGBS status: GBS status: positive Prophylaxis administered: none, elective repeat with pre-op anti-bioticsNewborn evaluation at delivery: NRP certified personnel, neonatologistAdmission EGA: Weeks: 39 Days: 0EGA at delivery (wks/days): 39 weeksAdmission indication:Elective Repeat Section Blood Loss/DetailsBlood loss at delivery: <1K: no sx hypovol=no hemQBL at delivery (ml's): 804EBL at delivery (ml's): 810 Baby A InformationBaby A information Delivery date: 01/03/22 Delivery time: 1028 status: live born Wt of baby (grams): 3590 Wt of baby (lbs/oz): 7lbs/15oz Gender: male 1 minute: 9 5 minutes: 9 Presentation: vertexABG details Baby A Cord blood gases: not collectedNuchal cord Baby A Nuchal cord: no Delivery DeliveryCesarean section indication: elective repeat Priority: scheduled Antibiotic prior to incision: 1 dose )(SCDs applied activated: Yes Uterine incision: low transverse Uterine scar: intact Consent: indication discussed, questions answered, pt consent to op delivery Mother's condition: mother stable 's condition: infant stable in room at 1312 RPT #:[id number] OF REPORTCLClinical hcnq3384-16-16W60:08:00D.FIEI74112642-4401SJJzuci able for patient zwqlVAKKKGIWXKUVEZ6596-60-20A47:12:17 [facility] 2021-12-08 10:57:00 [id number]/ qHV1+AC/Xgu9lGU91QihUJxYuYazP BLn41clo1L3gYT4d/M0Y/5DdJEsSOr1f6609-20-43V52:57: 00 [facility] ([facility])OB-HEPATOLOGIST Progress NoteREPORT#:[id number] REPORT STATUS: SignedDATE:12/08/21 TIME: 1057 PATIENT: HERVE HERNANDEZ UNIT #: [id number]#: [id number] [facility] AGE: 21 SEX: F ATTEND: South Membreno MDADM AUTHOR: Diana Welsh MD * ALL edits or amendments must be made on the electronic/computer document * SubjectiveChief complaint:PIH w/uPatient reports: Patient reports: No: complaints. Objective GeneralVS/I O:Last Documented: Result Date Time B/P Mean 95.0 12/08 0832 B/P 116/83 12/08 0832 Pulse 70 12/08 0832 Pulse Ox 99 12/07 1600 Temp 98.3 12/07 1600 Resp 16 12/07 1600 Vital SignsDate Temp Pulse Resp B/P B/P Mean Pulse Ox ZeU301/-12/08 98.3-99.0 62-92 14-16 116-144/66-98 89.0-114.0 97-99 24 hour I O ending at 0700: 12/08 0700 12/07 1900 Intake Total Output Total Balance Patient 198 lb Weight PATIENT WEIGHT: Weight (lb): 198Weight (oz): 6.66Weight (kg): 90.000 Medications:Active Meds + DC'd Last 24 HrsMultivi/Iron Carb/Fe Sulf/FA/Prenat (MATERNA) 1 EACH DAILY PO Docusate Sodium (COLACE 100MG CAPSULE) 100 MG BID PO Acetaminophen (TYLENOL 500MG EXTRA STRENGTH TABLET) 500 MG Q4H PRN PRN PO Zolpidem Tartrate (AMBIEN 5MG TABLET) 5 MG BEDTIME PRN PRN PO Physical ExamGeneral appearance: no acute distressRespiratory: no distressAbdomen: non-tender, soft, gravidGenitourinary: no flank pain, no urinary catheterExtremities: moves all, no edemaNeuro/TECHNICAL SUPPORT ASSISTANT: alert, oriented x 3 ResultsFindings/Data:Laboratory Tests 12/07 1410 Chemistry Sodium (133 - 145 MMOL/L) 134 Potassium (3.6 - 5.2 MMOL/L) 4.1 Chloride (100 - 108 MMOL/L) 102 Carbon Dioxide (22 - 32 MMOL/L) 22 BUN (6 - 20 MG/DL) 6 Creatinine (0.60 - 1.00 MG/DL) 0.57 L Estimated GFR (MDRD) (71 - 165) 137 Glucose (65 - 99 MG/DL) 85 Uric Acid (2.6 - 6.0 MG/DL) 4.8 Calcium (8.7 - 10.5 MG/DL) 8.3 L Total Bilirubin (0.0 - 1.0 MG/DL) 0.3 AST (15 - 37 Units/L) 32 ALT (30 - 65 Units/L) 22 L Alkaline Phosphatase (50 - 130 Units/L) 93 Lactate Dehydrogenase (81 - 234 Units/L) 251 H Total Protein (6.4 - 8.2 G/DL) 6.7 Albumin (3.4 - 5.0 G/DL) 2.8 L Globulin (1.5 - 3.8 G/DL) 3.9 H Albumin/Globulin Ratio (1.1 - 2.2) 0.7 L Laboratory Tests 12/07 1410 Hematology WBC (4.80 - 10.80 x10 3/uL) 4.29 L RBC (4.2 - 5.4 x10 6/uL) 3.52 L Hgb (12.0 - 16.0 G/DL) 9.1 L Hct (37 - 47 %) 29.9 L MCV (81 - 99 FL) 84.9 MCH (27 - 31 PG) 25.9 L MCHC (33 - 37 G/DL) 30.4 L RDW Coeff of Ayush (11.5 - 14.5 %) 19.2 H Plt Count (150 - 450 x10 3/uL) 170 MPV (7.4 - 10.4 FL) 13.3 H Neut % (Auto) (42 - 86 %) 73.9 Lymph % (Auto) (24 - 44 %) 17.0 L Mason % (Auto) (0.0 - 4.0 %) 7.9 H Eos % (Auto) (0.0 - 2.7 %) 0.2 Baso % (Auto) (0.0 - 0.5 %) 0.5 Eos # (Auto) (0.0 - 0.5 x10 3/uL) 0.01 Baso # (Auto) (0.0 - 0.2 x10 3/uL) 0.02 Abs Immat Gran (auto) (0.00 - 0.03 x10 3/uL) 0.02 Absolute Neuts (auto) (1.8 - 7.7 x10 3/uL) 3.17 Absolute Lymphs (auto) (1.0 - 4.8 x10 3/uL) 0.73 L Absolute Monos (auto) (0.0 - 0.8 x10 3/uL) 0.34 Absolute Nucleated RBC (0.0 - 0.2 X10 3/uL) 0.0 Immature Gran % (0.0 - 2.0 %) 0.5 Nucleated RBC % (0.0 - 0.0 %) 0.0 Laboratory Tests 12/07 141 Serology SARS-CoV-2 Ag (Rapid) (Negative) NEGATIVE Laboratory Tests 12/07 1519 Urines Ur Spec Description Clean Catch Urine Color (YELLOW) Yellow Urine Appearance (CLEAR) Turbid Urine pH (5.5 - 7.0) 6.0 Ur Specific [place] (1.001 - 1.035) 1.022 Urine Protein (NEGATIVE mg/dL) 30 A Urine Glucose (UA) (NEGATIVE mg/dL) NORMAL Urine Ketones (NEGATIVE mg/dL) NEGATIVE Urine Blood (NEGATIVE) NEGATIVE Urine Nitrite (NEGATIVE) NEGATIVE Urine Bilirubin (NEGATIVE) NEGATIVE Urine Urobilinogen (NORMAL mg/dL) NORMAL Ur Leukocyte Esterase (NEGATIVE) 75 A Urine RBC (NONE SEEN #/HPF) 3-5 A Urine WBC (<10 #/hpf) < 10 Ur Squamous Epith Cells (<100 #/lpf) > 100 A Urine Mucus (NONE SEEN #/lpf) 2+ H Urine Culture Screen Criteria not met Urine Comment VOLUME 10-12 ML Diagnosis, Assessment PlanFree Text A P:35 2/7 wks w/ h/o prior c/s c/b PIH admitted by Dr. Membreno yesterday for mildly elevated BPs.PIH labs were normal; 24hr urine protein underway.BPs range from normal to mildly increased. Plan:f/u 24hr urine protein and dispo based on results.pt planning rpt c/s at 1059 RPT #:[id number] OF REPORTPRProgress vtcy4364-70-00T24:57:00D.[id number] able for patient dwovMEEDFRAWUIMSCN9018-01-35U36:59:58 [facility] 2020-12-02 14:15:00 [id number] kPc9yqCKPfLwS1O+k5KFW79Bq+HFe bVPRbYO27ulGm/NsdmKR9OkVMT+HYMnVdl1834-44-32O70:1 5:00 [facility] ([facility] PROVIDER REPORTREPORT#:[id number] REPORT STATUS: SignedDATE:12/02/20 TIME: 1415 PATIENT: HERVE HERNANDEZ UNIT #: [id number]#: [id number] ROOM/BED:AGE: 20 SEX: F PCP PHYS: No Primary or Family PhysicianSERVICE AUTHOR: David Kwong MD * ALL edits or amendments must be made on the electronic/computer document * HPI-Abd Pain F Under 40 Free Text HPI NotesFree Text HPI [id number] female with past medical history of delivery approximately 2 months ago, prior cholecystectomy approximately 4 years ago, who was seen in the ER this morning for epigastric pain, and return because epigastric pain returned after she ate, the patient has any nausea vomiting at this time, the pain is 8 out of 10 in intensity radiated to the back, patient denies hematemesis, melena's, hematochezia. Nothing make it feel better nothing makes it feel worse exceptflu for what she consulted to emergency department. Patient denies fever, chills, body aches, cough, shortness of breath, been [place] of the country in the last 30 days, or been exposed to somebody with coronavirusthat the patient knows of GeneralConfirmed Patient YesPatient Type New patientInitial Greet Date/Time 12/02/20 1015 PresentationChief Complaint Abdominal pain Risk-Abd Pain F Under 40)( Ectopic Risk factors reviewed Review of Systems Free Text ROS NotesFree Text ROS NotesConstitutional: Negative for fever, chills HENT: Negative for ear pain, sore throat Eyes: Negative for pain and visual disturbance. Respiratory: Negative for cough, chest tightness and shortness of breath. Cardiovascular: Negative for chest pain, palpitations nor leg swelling. Gastrointestinal: Negative for nausea, vomiting, epigastric abdominal pain as stated in HPI nor diarrhea. Endocrine: Negative for polydipsia nor polyuria. Genitourinary: Negative for dysuria nor hematuria. Musculoskeletal: Negative for back pain, neck pain, nor extremity pain. Skin: Negative for pallor, rash. Neurological: Negative for dizziness, seizures, weakness and headaches. Psychiatric/Behavioral: Negative for behavioral problems, confusion and agitation. No suicidal ideation, no homicidal ideation, no hallucinations, no delusions. Past Medical History - AdultStated Complaint ABDOMINAL PAINAllergiesCoded Allergies:No Known Allergies (12/02/20) Home MedicationsActive ScriptsPANTOPRAZOLE DR (PROTONIX) 40 MG PO DAILY PANTOPRAZOLE DR (PROTONIX) 40 MG PO DAILY #30 TABS Prov: 12/02/20ONDANSETRON ODT (ZOFRAN ODT) 4 MG PO Q6H PRN PRN NAUSEA/VOMITING ONDANSETRON ODT (ZOFRAN ODT) 4 MG PO Q6H PRN PRN NAUSEA/VOMITING #15 TABS Prov: 12/02/20 Calculated Suicide Risk (nurs) No riskSmoking status: Smoking status for patients 13 years old or older: Never Smoker Physical Exam Vital SignsVital SignsFirst Documented: Result Date Time Pulse Ox 100 12/02 1011 B/P 171/107 12/02 1011 B/P Mean 128 12/02 1011 O2 Delivery Room air 12/02 1011 Temp 98.0 12/02 1011 Pulse 73 12/02 1011 Resp 19 12/02 1011 Last Documented: Result Date Time Pulse Ox 100 12/02 1403 B/P 111/65 12/02 1403 B/P Mean 80 12/02 1403 Temp 98.0 12/02 1403 Pulse 63 12/02 1403 Resp 17 12/02 1403 O2 Delivery Room air 12/02 1011 Review of Vital Signs Reviewed Free Text PE NotesFree Text PE NotesConstitutional: oriented to person, place, and time. appears well-developed and well-nourished. Non toxic appearing. Moderate distress due to abdominal pain Head: Normocephalic and atraumatic. ENT: Bilateral Tympanic membranes are normal, non-erythematous. Bilateral Ear canal normal without erythema or pain. Mouth/Throat: Uvula is midline, oropharynx is clear and moist and mucous membranes are normal. Eyes: Conjunctivae and EOM are normal. PERRL Neck: Neck supple, no JVD, No Midline tenderness, no meningismus Cardiovascular: Normal heart rate, regular rhythm, normal heart sounds and normal pulses. No Murmurs, Gallops, Rubs. Pulses: Radial pulses are 2+ on the right side, and 2+ on the left side. Dorsalis pedis pulses are 2+ on the right side, and 2+ on the left side. Pulmonary/Chest: Clear to auscultation Bilateral, effort normal with no retractions. Abdominal: Soft. Normal appearing. Normal bowel sounds. Gastric tenderness to palpation, no guarding, no rebound, no acute abdomen, no right upper quadrant pain, no Zhang sign Musculoskeletal: Normal range of motion. Neurological: alert and oriented to person, place, and time. normal strength. Nocranial nerve deficit or sensory deficit. GCS eye subscore is 4. GCS verbal subscore is 5. GCS motor subscore is 6. Skin: Skin is warm, dry and intact. Interpretation Diagnostics Lab Results InterpretationResultsLaboratory Tests 12/02/20 1132:[Embedded Image Not Available] 12/02/20 1110:[Embedded Image Not Available]Laboratory Tests: 12/02 12/02 1132 1113 Hematology WBC (4.80 - 10.80 x10 3/uL) 5.50 RBC (4.2 - 5.4 x10 6/uL) 4.06 L Hgb (12.0 - 16.0 G/DL) 10.4 L Hct (37 - 47 %) 34.2 L MCV (81 - 99 FL) 84.2 MCH (27 - 31 PG) 25.6 L MCHC (33 - 37 G/DL) 30.4 L RDW Coeff of Ayush (11.5 - 14.5 %) 14.7 H Plt Count (150 - 450 x10 3/uL) 231 MPV (7.4 - 10.4 FL) 11.8 H Neut % (Auto) (42 - 86 %) 74.2 Lymph % (Auto) (24 - 44 %) 19.8 L Mixed Cells % (Auto) (%) 6.0 Mixed Cells # (k/mm3) 0.3 Absolute Neuts (auto) (1.8 - 7.7 x10 3/uL) 4.10 Absolute Lymphs (auto) (1.0 - 4.8 x10 3/uL) 1.10 Urines Urine HCG, Qual (NEGATIVE) NEGATIVE 12/02 12/02 12/02 1113 1110 1100 Chemistry Sodium (133 - 145 MMOL/L) 138 Potassium (3.6 - 5.2 MMOL/L) 4.0 Chloride (100 - 108 MMOL/L) 108 Carbon Dioxide (22 - 32 MMOL/L) 29 BUN (6 - 20 MG/DL) 11 Creatinine (0.60 - 1.00 MG/DL) 0.80 Estimated GFR (MDRD) (71 - 165) 93 Glucose (65 - 99 MG/DL) 120 H Calcium (8.7 - 10.5 MG/DL) 9.3 Total Bilirubin (0.0 - 1.0 MG/DL) 0.6 Direct Bilirubin (0.0 - 0.3 MG/DL) 0.2 AST (15 - 37 Units/L) 212 H ALT (30 - 65 Units/L) 118 H Alkaline Phosphatase (50 - 130 Units/L) 87 Total Protein (6.4 - 8.2 G/DL) 6.9 Albumin (3.4 - 5.0 G/DL) 3.7 Lipase (73 - 393 Units/L) 69 L Toxicology Urine Opiates Screen (NEGATIVE) POSITIVE H Ur Barbiturates Screen (NEGATIVE) NEGATIVE Ur Amphetamine Screen (NEGATIVE) NEGATIVE U Benzodiazepines Scrn (NEGATIVE) NEGATIVE Urine Cocaine Screen (NEGATIVE) NEGATIVE U Cannabinoids Screen (NEGATIVE) POSITIVE H Urines Ur Spec Description Clean Catch Urine Color (YELLOW) DARK YELLOW Urine Appearance (CLEAR) HAZY Urine pH (5.5 - 7.0) 5.5 Ur Specific [place] (1.001 - 1.035) >= 1.030 Urine Protein (NEGATIVE mg/dL) 30 H Urine Glucose (UA) (NEGATIVE mg/dL) NEGATIVE Urine Ketones (NEGATIVE mg/dL) NEGATIVE Urine Blood (NEGATIVE) TRACE H Urine Nitrite (NEGATIVE) NEGATIVE Urine Bilirubin (NEGATIVE) 1+ H Urine Urobilinogen (NORMAL mg/dL) NORMAL Ur Leukocyte Esterase (NEGATIVE) NEGATIVE Urine Culture Screen Criteria not met Urine Comment VOLUME 10-12 ML Recent Impressions:CAT SCAN - CT ABD PELVIS W/CONT 12/02 1315 Report Impression - Status: SIGNED Entered: 12/02/2020 1352 IMPRESSION: 1. Prior cholecystectomy.2. Normal appendix.3. No evidence of bowel obstruction. No other acute abnormalitiesdemonstrated. Impression By: [email or web address] - Chuy Blanc MD Re-Evaluation [facility] )( Re-Evaluation/Progress #1Text/Dict NoteVital signs stable, patient with significant improvement after GI cocktail and Bentyl, CT scan of the abdomen and pelvis was delayed due to the power outage and CAT scan is back with no acute disease. The patient had a cholecystectomy 4 years ago and currently she has very mild elevated LFTs. At this point I do not believe the patient is a right upper quadrant ultrasound. The patient is not having pain in the right lower quadrant of the abdomen suggesting acute appendicitis that is not seen on the CT, I believe this patient has acute gastritis/GERD and I will prescribe Protonix, Bentyl, Zofran as an outpatient and follow-up with GI as an outpatient. I explained the plan to the patient and the mom and they agreed and understood the plan.Time of Re-Eval 8)( Re-Eval Status Improved ED CourseMedication(s) OrderedMedication(s) Ordered:Autonomic Drugs Sig/Priyanka Start time Last Medication Dose Route Stop Time Status Admin Dicyclomine HCl 20 MG X1ED STA 12/02 1033 DC 12/02 IM 12/02 1034 1041 Multi-Ingredient GI 40 ML X1ED STA 12/02 1033 DCr 12/02 Drug PO 12/02 1034 1042 Diagnostic Agents Sig/Priyanka Start time Last Medication Dose Route Stop Time Status Admin Iopamidol 0 .STK-MED ONE 12/02 1239 DC 12/02 IV 1329 Electrolytic, Caloric, And Damaso Sig/Priyanka Start time Last Medication Dose Route Stop Time Status Admin Sodium Chloride 1,000 ML X1ED STA 12/02 1033 DC 12/02 IV 12/02 1132 1042 Patient Discharge Departure Vital Signs/ConditionVital SignsFirst Documented: Result Date Time Pulse Ox 100 12/02 1011 B/P 171/107 12/02 1011 B/P Mean 128 12/02 1011 O2 Delivery Room air 12/02 1011 Temp 98.0 12/02 1011 Pulse 73 12/02 1011 Resp 19 12/02 1011 Last Documented: Result Date Time Pulse Ox 100 12/02 1403 B/P 111/65 12/02 1403 B/P Mean 80 12/02 1403 Temp 98.0 12/02 1403 Pulse 63 12/02 1403 Resp 17 12/02 1403 O2 Delivery Room air 12/02 1011 All vital signs available at the time of this entry have been reviewed. Condition Stable, Improved Clinical ImpressionClinical ImpressionPrimary Impression: GastritisSecondary Impressions: GERD (gastroesophageal reflux disease) Disposition DecisionDischarge )( Discharged to Home Yes )( Time 141 )( Date 12/02/20 COVID-19 Discharge Plan Criteria Not Met for TestingThe patient did not meet criteria for acute COVID19 testing today in the emergency department. The patient has received COVID19 precautions and home quarantine information. Discharge/Care PlanCounseled Regarding Diagnosis, Lab results, Imaging studies, Prescriptions, Needfor follow-up, When to return to [facility] Drug Database Reviewed YesPrescriptionsBentyl, Zofran, Protonix(Auto) PrescriptionsCurrent Visit ScriptsDICYCLOMINE (BENTYL) 20 MG PO QID DICYCLOMINE (BENTYL) 20 MG PO QID #30 TABS ONDANSETRON (ZOFRAN) 4 MG PO Q6H PRN PRN nausea ONDANSETRON (ZOFRAN) 4 MG PO Q6H PRN PRN nausea #15 TABS FOR NAUSEA/VOMITING PANTOPRAZOLE DR (PROTONIX) 40 MG PO DAILY PANTOPRAZOLE DR (PROTONIX) 40 MG PO DAILY #30 TABS Prescriptions Reviewed Risks, Benefits, Alternative treatmentPatient Instructions ED Gastritis (Adult), ED GERD (Adult)Additional InstructionsPlease take the medication as prescribed. Please follow-up with primary care physician in 3 to 5 days. Please follow-up with GI for EGD and elevated LFTs work-up status post cholecystectomy 4 years ago If not better or getting worse please return to the emergency department or [id number] PRIMARY CARE: 2-3 DaysPatient is a GI referral due to elevated LFTs, and gastritis, status post cholecystectomy 4 years ago Departure FormsABNORMAL LABSAdvance Care Planning Documents Reviewed With patient, With surrogate/proxy Discharge NoteI have spoken with the patient and/or caregivers. I have explained the patient'scondition, diagnoses and treatment plan based on the information available to meat this time. I have answered the patient's and/or caregiver's questions and addressed any concerns. The patient and/or caregivers have as good an understanding of the patient's diagnosis, condition and treatment plan as can beexpected at this point. The vital signs have been stable. The patient's condition is stable and appropriate for discharge from the emergency department. The patient will pursue further outpatient evaluation with the primary care physician or other designated or consulting physician as outlined in the discharge instructions. The patient and/or caregivers are agreeable to this planof care and follow-up instructions have been explained in detail. The patient and/or caregivers have received these instructions in written format and have expressed an understanding of the discharge instructions. The patient and/or caregivers are aware that any significant change in condition or worsening of symptoms should prompt an immediate return to this or the closest emergency department or a call to 911. Quality MeasuresBP F/U for HTN F/u with PCP/other doc at 1152RPT #:[id number] OF REPORTEDUniversal Health Services department [id number]:15:00D.[id number] ilable for patient [id number]:52:32 [facility] 2020-12-02 06:22:00 [id number] 2:00 [facility]ENC[facility] PROVIDER REPORTREPORT#:[id number] REPORT STATUS: SignedDATE:12/02/20 TIME: 621 PATIENT: HERVE HERNANDEZ UNIT #: [id number]#: [id number] ROOM/BED:AGE: 20 SEX: F PCP PHYS: No Primary or Family PhysicianSERVICE AUTHOR: Patrick Mehta MD * ALL edits or amendments must be made on the electronic/computer document * HPI-Abd Pain F Under 40 Free Text HPI NotesFree Text HPI NotesPatient presents complaints of epigastric pain since this morning. She reports the pain is epigastric sometimes radiated up midsternal and to the back. Patient has a history of previous cholecystectomy status post 2 months ago. She had a at the time. Patient smokes but denies any drug or alcohol use. Denies similar pains in the past. Denies any right upper quadrantpain. GeneralConfirmed Patient YesPatient Type New patientInitial Greet Date/Time 12/02/20 0622Pt in Research Study? NOAssumed Care at Time 621 Date 12/02/20 PresentationChief Complaint Abdominal painHx Obtained From PatientSudden in Onset? NoOnset Occurred TodaySymptom Duration ConstantCaused by No trauma by history Risk-Abd Pain F Under 40)( Ectopic Risk factors reviewed Review of Systems ROS StatementsComplete sys rev neg except as marked. Focused Review of SystemsGIReports: Abdominal pain, Nausea. Past Medical History - AdultStated Complaint PUI-CHEST PAIN-ABDOMINAL PAIN-HEADACHEAllergiesCoded Allergies:No Known Allergies (12/02/20) Home MedicationsActive ScriptsDICYCLOMINE (BENTYL) 20 MG PO QID DICYCLOMINE (BENTYL) 20 MG PO QID #30 TABS Prov: 12/02/20ONDANSETRON (ZOFRAN) 4 MG PO Q6H PRN PRN nausea ONDANSETRON (ZOFRAN) 4 MG PO Q6H PRN PRN nausea #15 TABS Prov: 12/02/20PANTOPRAZOLE DR (PROTONIX) 40 MG PO DAILY PANTOPRAZOLE DR (PROTONIX) 40 MG PO DAILY #30 TABS Prov: 12/02/20 Physical Exam Vital SignsVital SignsFirst Documented: Result Date Time Pulse Ox 100 12/02 0623 B/P 139/85 / 0623 B/P Mean 103 / 0623 O2 Delivery Room air 12/02 0623 Temp 36.2 12/02 0623 Pulse 58 / 0623 Resp 16 / 0623 Last Documented: Result Date Time Pulse Ox 100 12/02 0623 B/P 139/85 12/02 0623 B/P Mean 103 / 0623 O2 Delivery Room air / 0623 Temp 36.2 / 0623 Pulse 58 / 0623 Resp 16 12/02 0623 Review of Vital Signs Reviewed Free Text PE NotesFree Text PE Notes CONSTITUTIONAL: Alert and Oriented in NAD HEAD: Atraumatic, Normocephalic EYES: Pupils equal round reactive to light, EOM intact, Conjunctiva clear EARS: TM clear, EAC patent, no discharge NOSE: Nares clear patent THROAT: clear, no erythema, tongue normal NECK: Supple, full rom, no meningismus. LUNGS: Clear bilaterally, no increased rate or work of breathing CV: RRR w/o Murmur, rub or gallop, radial pulses equal ABDOMEN epigastric tenderness with voluntary guarding no rebound. BACK: No tenderness. No step off. No significant midline tenderness. EXT: appear atraumatic, no lower extremity edema SKIN: Normal color, no rash, normal turgor NEURO: CN II-XII, intact, moves all extremities well, equal admiralty lawyer, no focal findings. PSYCH: mood and affect appropriate. no SI, no HI Interpretation Diagnostics Lab Results InterpretationResultsLaboratory Tests 12/02/20638:[Embedded Image Not Available] 12/02/20633:[Embedded Image Not Available]Laboratory Tests: 12/02 0634 Chemistry Sodium (133 - 145 MMOL/L) 140 Potassium (3.6 - 5.2 MMOL/L) 4.1 Chloride (100 - 108 MMOL/L) 106 Carbon Dioxide (22 - 32 MMOL/L) 28 BUN (6 - 20 MG/DL) 12 Creatinine (0.60 - 1.00 MG/DL) 0.70 Estimated GFR (MDRD) (71 - 165) Unable to calculate Glucose (65 - 99 MG/DL) 122 H Calcium (8.7 - 10.5 MG/DL) 9.5 Total Bilirubin (0.0 - 1.0 MG/DL) 0.5 AST (15 - 37 Units/L) 46 H ALT (30 - 65 Units/L) 57 Alkaline Phosphatase (50 - 130 Units/L) 66 Total Protein (6.4 - 8.2 G/DL) 7.2 Albumin (3.4 - 5.0 G/DL) 3.9 Lipase (73 - 393 Units/L) 93 Urines Ur Spec Description Clean Catch Urine Color (YELLOW) YELLOW Urine Appearance (CLEAR) SLIGHTLY CLOUDY Urine pH (5.5 - 7.0) 6.0 Ur Specific [place] (1.001 - 1.035) >= 1.030 Urine Protein (NEGATIVE mg/dL) 100 H Urine Glucose (UA) (NEGATIVE mg/dL) NEGATIVE Urine Ketones (NEGATIVE mg/dL) NEGATIVE Urine Blood (NEGATIVE) 1+ Urine Nitrite (NEGATIVE) NEGATIVE Urine Bilirubin (NEGATIVE) NEGATIVE Urine Urobilinogen (NORMAL mg/dL) 0.2 Ur Leukocyte Esterase (NEGATIVE) NEGATIVE Urine Comment VOLUME 10-12 ML 12/02 633 Chemistry HCG, Qual (NEGATIVE) NEGATIVE Hematology WBC (4.80 - 10.80 x10 3/uL) 5.40 RBC (4.2 - 5.4 x10 6/uL) 4.12 L Hgb (12.0 - 16.0 G/DL) 10.8 L Hct (37 - 47 %) 35.1 L MCV (81 - 99 FL) 85.2 MCH (27 - 31 PG) 26.2 L MCHC (33 - 37 G/DL) 30.8 L RDW Coeff of Ayush (11.5 - 14.5 %) 14.6 H Plt Count (150 - 450 x10 3/uL) 270 Neut % (Auto) (42 - 86 %) 58.5 Lymph % (Auto) (24 - 44 %) 34.3 Mason % (Auto) (0.0 - 4.0 %) 7.2 H Absolute Neuts (auto) (1.8 - 7.7 x10 3/uL) 3.10 Absolute Lymphs (auto) (1.0 - 4.8 x10 3/uL) 1.90 Absolute Monos (auto) (0.0 - 0.8 x10 3/uL) 0.40 Re-Evaluation MDM )( Re-Evaluation/Progress #1)( Re-Eval Status Improved ED CourseMedication(s) OrderedMedication(s) Ordered:Gastrointestinal Drugs Sig/Priyanka Start time Last Medication Dose Route Stop Time Status Admin Famotidine 0 .STK-MED ONE 12/02 0630 DCr IV Famotidine 20 MG X1ED STA 12/02 0628 DCDr 12/02 Sodium Chloride 8 ML IV 12/02 1627 0637 Patient Discharge Departure Vital Signs/ConditionVital SignsFirst Documented: Result Date Time Pulse Ox 100 12/02 0623 B/P 139/85 12/02 0623 B/P Mean 103 12/02 06 O2 Delivery Room air 12/02 06 Temp 36.2 12/02 622 Pulse 58 12/02 0623 Resp 12/02 06 Last Documented: Result Date Time Pulse Ox 100 12/02 0623 B/P 139/85 12/02 0623 B/P Mean 103 12/02 06 O2 Delivery Room air 12/02 06 Temp 36.2 12/02 06 Pulse 58 12/02 06 Resp 12/02 06 All vital signs available at the time of this entry have been reviewed. Condition Stable Clinical ImpressionClinical ImpressionPrimary Impression: GERD (gastroesophageal reflux disease)Time of Impression 07 Disposition DecisionDischarge )( Discharged to Home Yes )( Time 07 )( Date 12/02/20 Discharge/Care Plan(Auto) PrescriptionsCurrent Visit ScriptsPANTOPRAZOLE DR (PROTONIX) 40 MG PO DAILY PANTOPRAZOLE DR (PROTONIX) 40 MG PO DAILY #30 TABS ONDANSETRON ODT (ZOFRAN ODT) 4 MG PO Q6H PRN PRN NAUSEA/VOMITING ONDANSETRON ODT (ZOFRAN ODT) 4 MG PO Q6H PRN PRN NAUSEA/VOMITING #15 TABS Discharge NoteI have spoken with the patient and/or caregivers. I have explained the patient'scondition, diagnoses and treatment plan based on the information available to meat this time. I have answered the patient's and/or caregiver's questions and addressed any concerns. The patient and/or caregivers have as good an understanding of the patient's diagnosis, condition and treatment plan as can beexpected at this point. The vital signs have been stable. The patient's condition is stable and appropriate for discharge from the emergency department. The patient will pursue further outpatient evaluation with the primary care physician or other designated or consulting physician as outlined in the discharge instructions. The patient and/or caregivers are agreeable to this planof care and follow-up instructions have been explained in detail. The patient and/or caregivers have received these instructions in written format and have expressed an understanding of the discharge instructions. The patient and/or caregivers are aware that any significant change in condition or worsening of symptoms should prompt an immediate return to this or the closest emergency department or a call to 911. Admit NoteI have spoken with the patient and/or caregivers. I have explained the patient'scondition, diagnoses and treatment plan based on the information available to meat this time. I have answered the patient's and/or caregiver's questions and addressed any concerns. The patient and/or caregivers have as good an understanding of the patient's diagnosis, condition and treatment plan as can beexpected at this point. The patient has been stabilized within the capability ofthe emergency department. The patient will be transported for further care and management or will be moved to an observation or inpatient service. I have communicated with the staff or medical practitioner taking over this patient's care. at 2358RPT #:[id number] OF REPORTEDEmergency department [id number].[id number] deable for patient [id number]:58:42 [facility]
--- NOTE | 2023-11-11 13:19 | ER ---
Nurse's Notes [facility] Name: Charley Hurtado Age: 22 yrs Sex: Female : 2000 Arrival Date: 11/11/2023 Time: 08:37 Bed 4 Private MD: Diagnosis: Opioid overdose Presentation: 11/10 08:40 Chief complaint: EMS states: called for unresponsive patient due to overdose. Bystander ko1 did CPR, patient was responsive when EMS arrived. Patient states she took 1 percocet at 0700. 08:40 Coronavirus screen: At this time, the client does not indicate any symptoms associated ko1 with coronavirus-19. Ebola Screen: No symptoms or risks identified at this time. Initial Sepsis Screen: Does the patient meet any 2 criteria? No. Patient's initial sepsis screen is negative. Does the patient have a suspected source of infection? No. Patient's initial sepsis screen is negative. Risk Assessment: Do you want to hurt yourself or someone else? Patient reports no desire to harm self or others. Onset of symptoms was November 11, 2023. Care prior to arrival: IV initiated. 20 GA, in the left antecubital area. Activity prior to arrival: loss of consciousness. 08:40 Method Of Arrival: EMS: [facility] ko1 08:40 Acuity: FABIAN 3 ko1 Triage Assessment: 08:40 GI: No deficits noted. : No deficits noted. Derm: No deficits noted. Musculoskeletal: ko1 No deficits noted. 09:09 General: Appears in no apparent distress. Behavior is calm, cooperative, appropriate ko1 for age. Pain: Denies pain. EENT: No deficits noted. Neuro: No deficits noted. Cardiovascular: No deficits noted. Respiratory: No deficits noted. CANDY CUTTER HAND: 10:24 LMP N/A - , Not mb9 Historical: - Allergies: 09:09 No Known Allergies; ko1 - Home Meds: 09:09 None [Active]; ko1 - PMHx: 09:09 None; ko1 - PSHx: 09:09 Cholecystectomy; ko1 - Immunization history:: Adult Immunizations unknown. - Infectious Disease History:: Denies. - Social history:: Smoking status: Patient denies any tobacco usage or history of. Screenin:[address] [facility] ED Fall Risk Assessment (Adult) History of falling in the last 3 months, ko1 including since admission No falls in past 3 months (0 pts) Confusion or Disorientation No (0 pts) Intoxicated or Sedated No (0 pts) Impaired Gait No (0 pts) Mobility Assist Device Used No (0 pt) Altered Elimination No (0 pt) Score/Fall Risk Level 0 - 2 = Low Risk Oriented to surroundings, Maintained a safe environment, Educated pt \T\ family on fall prevention, incl call for assistance when getting out of bed, Assessed \T\ reinforced patient's understanding of fall precautions, Provided non-skid footwear, Hourly rounding (assess needs \T\ fall precautionary measures) done, Used ambulatory aids as needed (educated on \T\ assisted with), Used gait belt as appropriate. Abuse screen: Denies threats or abuse. Denies injuries from another. Nutritional screening: No deficits noted. Tuberculosis screening: No symptoms or risk factors identified. Assessment: 08:45 Reassessment: see triage assessment. ko1 10:21 General: Appears in no apparent distress. Behavior is calm, cooperative. Pain: Denies mb9 pain. Neuro: Barber Agitation-Sedation Scale (RASS): 0 - Alert and Calm Level of Consciousness is awake, alert, obeys commands, Oriented to person, place, time, situation, Appropriate for age. Cardiovascular: Patient's skin is warm and dry. Respiratory: Airway is patent Respiratory effort is even, unlabored, Respiratory pattern is regular, symmetrical. GI: No signs and/or symptoms were reported involving the gastrointestinal system. : No signs and/or symptoms were reported regarding the genitourinary system. EENT: No signs and/or symptoms were reported regarding the EENT system. Derm: Skin is pink, warm \T\ dry. Musculoskeletal: Range of motion: intact in all extremities. 11:22 Reassessment: Patient appears in no apparent distress at this time. No changes from mb9 previously documented assessment. Patient and/or family updated on plan of care and expected duration. Pain level reassessed. Patient is alert, oriented x 3, equal unlabored respirations, skin warm/dry/pink. 12:18 Reassessment: Patient appears in no apparent distress at this time. No changes from mb9 previously documented assessment. Patient and/or family updated on plan of care and expected duration. Pain level reassessed. Patient is alert, oriented x 3, equal unlabored respirations, skin warm/dry/pink. 13:20 Reassessment: Patient appears in no apparent distress at this time. No changes from mb9 previously documented assessment. Patient and/or family updated on plan of care and expected duration. Pain level reassessed. Patient is alert, oriented x 3, equal unlabored respirations, skin warm/dry/pink. Vital Signs: 08:40 BP 139 / 105; Pulse 80; Resp 14; Temp 98; Pulse Ox 100% on R/A; ko1 09:00 BP 137 / 93; Pulse 90; Resp 14; Pulse Ox 99% on R/A; ko1 09:56 BP 109 / 69; Pulse 67; Resp 16; Pulse Ox 98% on R/A; ld1 11:22 BP 107 / 68; Pulse 68; Resp 18; Pulse Ox 100% on R/A; mb9 12:25 BP 110 / 65; Pulse 57; Resp 16; Pulse Ox 97% on R/A; mb9 13:20 BP 112 / 68; Pulse 62; Resp 16; Pulse Ox 100% on R/A; mb9 ED Course: 08:40 Patient arrived in ED. ms3 08:40 Jabier Grover DO is Attending Physician. ms3 08:40 Arm band placed on right wrist. Patient placed in an exam room, on a stretcher, on ko1 air sampling and monitoring, on pulse oximetry, Patient notified of wait time. 09:00 Patient has correct armband on for positive identification. Placed in gown. Bed in low ko1 position. Call light in reach. Side rails up X2. Provided Education on: na. Client placed on continuous cardiac and pulse oximetry monitoring. NIBP monitoring applied. gambling monitor on. Door closed. Noise minimized. Lights dimmed. Warm blanket given. 09:00 No provider procedures requiring assistance completed. Maintain EMS IV. Dressing ko1 intact. Good blood return noted. Site clean \T\ dry. Gauge \T\ site: 20g left AC. 09:03 Love Kumar, NETTE is Primary Nurse. ko1 09:08 Triage completed. ko1 13:18 Hitesh Dean DO is Referral Physician. ms3 13:20 IV discontinued, intact, bleeding controlled, No redness/swelling at site. Pressure mb9 dressing applied. Administered Medications: No medications were administered Medication: 09:00 VIS not applicable for this client. ko1 Outcome: 13:19 Discharge ordered by . ms3 13:20 Discharged to home ambulatory, with family, mb9 13:20 Condition: stable 13:20 Discharge instructions given to patient, Instructed on discharge instructions, follow up and referral plans. Demonstrated understanding of instructions, follow-up care, medications, Prescriptions given X 1, 13:26 Patient left the ED. aa5 Signatures: Phylicia Oleary, RN RN aa5 Jabier Grover DO DO ms3 Anel Grover RN RN bee1 Love Kumar RN RN ko1 Shama Menard RN RN mb9 Corrections: (The following items were deleted from the chart) 09:08 09:05 Chief complaint: EMS states: called for unresponsive patient due to overdose. ko1 Bystander did CPR, patient was responsive when EMS arrived. Patient states she took 1 percocet at 0700. ko1
--- NOTE | 2023-11-11 13:19 | EDPHYS ---
Physician Documentation [facility] Name: Charley Hurtado Age: 22 yrs Sex: Female : 2000 Arrival Date: 11/11/2023 Time: 08:37 Bed 4 Private MD: ED Physician Jabier Grover HPI: 11/10 10:54 This 22 yrs old Female presents to ER via EMS with complaints of Opioid ms3 overdose. 10:54 22-year-old female presents via [facility] for opioid overdose. EMS notes that on the ms3 [employer] arrival patient was unresponsive with her partner performing CPR. 4 mg Narcan was administered intranasally with improvement in patient's respiratory status and mental status. On EMS arrival patient was alert and oriented x 4 without respiratory distress. EMS notes patient stated she took half a pill of Percocet by snorting it. Patient denies pain. Patient denies any alleviating or inciting factors.. 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 - Infectious Disease History:: Denies. - Social history:: Smoking status: Patient denies any tobacco usage or history of. ROS: 10:54 Constitutional: Negative for fever, and chills. Neck: Negative for injury, pain, and ms3 swelling, Cardiovascular: Negative for chest pain, and palpitations. Respiratory: Negative for shortness of breath, cough, wheezing, and pleuritic chest pain, Abdomen/GI: Negative for abdominal pain, nausea, vomiting, diarrhea, and constipation, Skin: Negative for injury, rash, and discoloration, Exam: 10:54 Constitutional: This is a well developed, well nourished patient who is awake, alert, ms3 and in no acute distress. Neck: Trachea midline, no cervical lymphadenopathy. Supple, full range of motion without nuchal rigidity, or vertebral point tenderness. No Meningismus. Chest/axilla: Normal chest wall appearance and motion. Nontender with no deformity. Cardiovascular: Regular rate and rhythm with a normal S1 and S2. No gallops, murmurs, or rubs. Normal PMI, no JVD. No pulse deficits. Respiratory: Lungs have equal breath sounds bilaterally, clear to auscultation and percussion. No rales, rhonchi or wheezes noted. No increased work of breathing, no retractions or nasal flaring. Abdomen/GI: Soft, non-tender, with normal bowel sounds. No distension or tympany. No guarding or rebound. No evidence of tenderness throughout. Skin: Warm, dry with normal turgor. Normal color with no rashes, no lesions, and no evidence of cellulitis. MS/ Extremity: Pulses equal, no cyanosis. Neurovascular intact. Full, normal range of motion. Vital Signs: 08:40 BP 139 / 105; Pulse 80; Resp 14; Temp 98; Pulse Ox 100% on R/A; ko1 09:00 BP 137 / 93; Pulse 90; Resp 14; Pulse Ox 99% on R/A; ko1 09:56 BP 109 / 69; Pulse 67; Resp 16; Pulse Ox 98% on R/A; ld1 11:22 BP 107 / 68; Pulse 68; Resp 18; Pulse Ox 100% on R/A; mb9 12:25 BP 110 / 65; Pulse 57; Resp 16; Pulse Ox 97% on R/A; mb9 13:20 BP 112 / 68; Pulse 62; Resp 16; Pulse Ox 100% on R/A; mb9 MDM: 08:40 Patient medically screened. ms3 10:54 Differential diagnosis: Ingestion/exposure to Opioid overdose. ms3 13:20 Data reviewed: vital signs, nurses notes, and as a result, I will discharge patient. ms3 Historians other than the Patient: EMS: [facility]. Counseling: I had a detailed discussion with the patient and/or guardian regarding the historical points, exam findings, and any diagnostic results supporting the discharge/admit diagnosis, the need for outpatient follow up, to return to the emergency department if symptoms worsen or persist or if there are any questions or concerns that arise at home. Special discussion: I discussed with the patient/guardian in detail that at this point there is no indication for admission to the hospital. It is understood, however, that if the symptoms persist or worsen the patient needs to return immediately for re-evaluation. ED course: On reevaluation patient is alert and oriented x 4, no apparent distress, nontoxic-appearing, ambulatory emerged primary, speaking full sentences, tolerating p.o. Patient to follow-up with Dr. Dean in 2 to 3 days. All questions were answered. Return precautions discussed include worsening symptoms, or any other concerns. Administered Medications: No medications were administered Disposition Summary: 11/11/23 13:19 Discharge Ordered Notes: Location: Home ms3 Condition: Stable ms3 Diagnosis - Opioid overdose ms3 Followup: ms3 - With: Hitesh Dean DO - When: 2 - 3 days - Reason: Re-evaluation by your physician Discharge Instructions: - Discharge Summary Sheet ms3 - Opioid Overdose ms3 - Warning Signs of Opioid Misuse ms3 Forms: - Medication Reconciliation Form ms3 - Thank You Letter ms3 - Antibiotic Education ms3 - Prescription Opioid Use ms3 - Patient Portal Instructions ms3 - Leadership Thank You Letter ms3 Prescriptions: - Narcan 4 mg/actuation Nasal spray, non-aerosol - spray 1 spray INTRANASAL route every 2 minutes spray 1 dose into ONE nostril; ms3 alternate nostrils w each dose until help arrives; 1 unit; Refills: 0, Product Selection Permitted Signatures: Jabier Grover DO DO ms3 Love Kumar, RN RN ko1
[2023-11-11 13:56] VITALS: BP 112/68; TEMP 98; O2SAT 100
== END 2023-11-11 13:26 | disposition home or self-care (01) ==
LOC: ER 08:37
DX: T40.2X1A Poisoning by other opioids, accidental (unintentional), initial encounter (principal)
CPT/HCPCS: 99284

== ENCOUNTER 2024-10-03 00:06 | Emergency (ER) | payer OTHER, SELFPAY ==
--- OUTSIDE RECORDS SUMMARY | 2024-10-03 00:11 | XMS REPORT | Continuity of Care Document ---
Author Name Unknown Address [address] [facility] [address] [place] [address] [facility] [address] [facility] [address] [place] [address] Care Team Providers Care Power Generation Equipment Repairer Name Role Phone [place] Attending Clinician Chuy Da Silva Attending Clinician Unavailable [place] Admitting Clinician Unavailstanley e Physician, No Primary or Family Admitting Clinic gabriel Unavailable Payers Payer Name Policy Type Policy Number Effective Date Expirati on Date Source Allergies, Adverse Reactions, Alerts Allergy Name Allergy Type Status Severity Reaction(s) Onset Date Inactive Date Treating Clinician Comments Source No Known Allergie s DA Active U 01-03 00:00: 00 [facility] No Known Allergie s DA Active U 12-02 00:00: 00 [facility] No Known Allergie s DA Active U 12-02 00:00: 00 [facility] Procedures Procedure Date / Time Performed Performing Clinicia n Source [id number] 2022-01-03 00:00:00 [facility][email or web address] [facility] Encounters Start Date/Time End Date/Time Encounter Type Admission Type Attending [facility] Care Facility Care Department Encounter ID Source 2021-12-07 12:45:00 [place]patient [place] [facility] [id number] [facility] 2020-12-02 06:28:51 Inpatient [facility] [id number] [facility] 2024-09-01 13:16:38 2024-09-01 13:16:38 Outpatient [facility] [id number] Noé Lester Renny 2024-07-16 11:03:23 2024-07-16 11:03:[address] [facility] [id number] Noé Lawson 2024-07-07 16:19:42 2024-07-07 16:19:[address] [facility] [id number] Noé Lawson 2022-08-24 04:32:00 2022-08-24 05:10:00 Emergency EM Chuy Xie [facility] ER [id number] [facility] 2022-01-03 07:58:00 2022-01-06 16:39:00 [place]patient [place] [facility] [id number] [facility] 2022-01-03 07:58:00 2022-01-06 16:39:00 [place]patient [place] [facility] [id number] [facility] 2021-12-07 12:45:00 2021-12-08 18:00:00 [place]patient [place] [facility] [id number] [facility] 2021-11-23 09:00:00 2021-11-23 14:59:00 Inpatient [place] [facility] [id number] [facility] Results Test Description Test Time Test Comments Results Result Co mments Source HPV HIGH RISK WITH GENOTYPE, [id number] 15:33:35* Test Item Value Reference Range Interpretation Comme nts HPV HIGH RISK INTERP (test code = 90179) POSITIVE NEGATIVE A HPV 16 (test code = 10822) NEGATIVE HPV 18 (test code = 79912) NEGATIVE HPV, HR, OTHER GENOTYPES (test code = 30611) POSITIVE A Testing methodol ogy is real-time PCR utilizing hydrolysis probes with the Sym[employer] Carlos Manuel system. The test individually detects genotypes 16 and 18, as well as the other 12 high risk types (31,33,35,39,45,51,52,56 ,58,59,66,68). The expected result is negative. A negative result does not rule out the presence of HPV not included in the genotype set, a low level of infection or specimen sampling error. UNLESS OTHERWISE INDICATED, ALL TESTING PERFORMED AT [facility] [address] [place] [address] TIRE BAGGER: NANETTE TOWNSEND M.D. [place] NUMBER [id number] [facility] [place]. [id number] CT/NG, NAAT, [id number] 21:11:51* Test Item Value Reference Range Interpretation Comme nts CHLAMYDIA, NAAT, THINPREP (test code = 67263) NEGATIVE NEGATIVE A negative resul t does not exclude low level infection, specimensampling error, or collection error. Testing is performed with the Symone Carlos Manuel 6800/8800 systems usingreal-time Polymerase Chain Reaction (PCR) method. GONORRHEA, NAAT, THINPREP (test code = 60703) NEGATIVE NEGATIVE A negative resul t does not exclude low level infection, specimensampling error, or collection error. Testing is performed with the [employer] Manuel 6800/8800 systems usingreal-time Polymerase Chain Reaction (PCR) method. HEPATITIS PANEL, [id number] 06:58:08* Test Item Value Reference Range Interpretation Comments HEPATITIS A TOTAL AB (test code = 2725) REACTIVE NON-REACTIVE A HEPATITIS B SURF AG (test code = 2739) NON-REACTIVE NON-REACTIVE HEP B CORE TOTAL AB (test code = 2729) NON-REACTIVE NON-REACTIVE HEPATITIS B SURFACE AB (test code = 2737) NON-REACTIVE NON-REACTIVE HEPATITIS C ANTIBODY (test code = 4675) NON-REACTIVE NON-REACTIVE INTERPRETATION HEPATITIS A: (test code = 2552) (NOTE) Hepatitis A sero logy consistent with past exposure or previousvaccination to hepatitis A virus. No evidence of current acutehepatitis A infection. INTERPRETATION HEPATITIS B: (test code = 97674) (NOTE) Hepatitis B sero logy shows no evidence of past exposure to orcurrent infection with hepatitis B virus. No evidence of hepatitis Bimmunization is identified. INTERPRETATION HEPATITIS C: (test code = 98868) (NOTE) Hepatitis C sero logy shows no evidence of exposure to hepatitisC virus at this time. It can take up to 12 months after exposure tothe hepatitis C virus for antibodies to become detectable in the blood in certain patients. HEPATITIS A [id number] 06:58:08* Test Item Value Reference Range Interpretation Comme [facility] HEPATITIS A IgM (test code = 2728) NON-REACTIVE NON-REACTIVE UNLESS OTHERW ISE INDICATED, ALL TESTING PERFORMED AT [facility] [address] [place] [address] TIRE BAGGER: NANETTE TOWNSEND M.D. [place] NUMBER [id number] [facility] [place]. [id number] HIV 1/2 4TH GEN, RFLX [id number] 06:58:08* Test Item Value Reference Range Interpretation Comme nts HIV 1/2 4TH GEN, RFLX CONF ( test code = 3514) NON-REACTIVE NON-REACTIVE [id number] 05:11:41* Test Item Value Reference Range Interpretation Comme nts RPR RESULT (test code = 3501) NON-REACTIVE NON-REACTIVE RPR TITER (test code = 3500) NOT INDIC. TITER NOT INDIC. COMPREHENSIVE METABOLIC [id number] 04:12:53* Test Item Value Reference Range Interpretation Comme nts GLUCOSE (test code = 2217) 100 MG/DL 70-99 H BUN (test code = 2208) 9 MG/DL 6-20 CREATININE (test code = 2214) 0.64 MG/DL 0.60-1.30 eGFR (2020 CKD-EPI) (test code = 61870) 129 ML/MIN/1.73 >60 CALC BUN/CREAT (test code = 2235) 14 RATIO 6-28 SODIUM (test code = 2231) 141 MEQ/L 133-146 POTASSIUM (test code = 2228) 4.4 MEQ/L 3.5-5.4 CHLORIDE (test code = 2215) 103 MEQ/L 95-107 CARBON DIOXIDE (test code = 2206) 24 MEQ/L 19-31 CALCIUM (test code = 2209) 10.0 MG/DL 8.5-10.5 PROTEIN, TOTAL (test code = 2229) 7.5 G/DL 6.1-8.3 ALBUMIN (test code = 2201) 4.6 G/DL 3.5-5.2 CALC GLOBULIN (test code = 2240) 2.9 G/DL 1.9-3.7 CALC A/G RATIO (test code = 2234) 1.6 RATIO 1.0-2.6 BILIRUBIN, TOTAL (test code = 2207) 0.4 MG/DL <=1.2 ALKALINE PHOSPHATASE (test code = 2204) 86 U/L 39-117 AST (test code = 2218) 15 U/L 9-40 ALT (test code = 2219) 11 U/L 5-40 LIPID [id number] 04:12:53* Test Item Value Reference Range Interpretation Comme nts CHOLESTEROL (test code = 2210) 175 MG/DL <200 TRIGLYCERIDES (test code = 2232) 64 MG/DL <150 HDL CHOLESTEROL (test code = 2219) 103 MG/DL >39 CALC LDL CHOL (test code = 223) 58 MG/DL <100 NOTE: CALCULATED LDL IS BASED ON BRUNA-ALBERT METHOD WHICHINCLUDES ADJUSTABLE TRIGLYCERIDE:VLDL CHOLESTEROL RATIO.THIS FACTOR VARIES BY MEASURED TRIGLYCERIDE AND NON-HDLCHOLESTEROL CONCENTRATIONS WITH INCREASED CALCULATED LDL SEENIN HIGHER TRIGLYCERIDE OR LOWER NON-HDL SPECIMENS. FOR MOREINFORMATION, SEE CLIENT ANNOUNCEMENT AT [email or web address] RISK RATIO LDL/HDL (test code = 2238) 0.56 RATIO <3.22 RAPID PLASMA [id number] 12:46:00* Test Item Value Reference Range Interpretation Comme nts RAPID PLASMA REAGIN (test co de = RPR) Nonreactive Nonreactive HGB [id number] 05:38:00* Test Item Value Reference Range Interpretation Comme nts HEMOGLOBIN (test code = HGB) 8.2 G/DL 12.0-16.0 L HEMATOCRIT (test code = HCT) 25.7 % 37-47 L MEAN CELL HGB CONCENTRATION (test code = MCHC) 31.9 G/DL 33-37 L UR PROTEIN [id number] 13:30:00* Test Item Value Reference Range Interpretation Comme nts UR PROTEIN RANDOM (test code = PROTU) 70 MG/DL No establish ed reference range for random urine specimen. UR CREATININE [id number] 13:30:00* Test Item Value Reference Range Interpretation Comme nts UR CREATININE RANDOM (test code = CREATU) 33.97 MG/DL No establis [facility] reference range for random urine specimen. PROTEIN/CREATININE [id number] 13:30:00* Test Item Value Reference Range Interpretation Comme nts PROTEIN/CREATININE RATIO (te st code = P/CRATIO) 2.1 < 0.2 H COMPREHENSIVE METABOLIC [id number] 12:43:00* Test Item Value Reference Range Interpretation [...] = ALKP) 102 Units/L 50-130 N URIC [id number] 12:43:00* Test Item Value Reference Range Interpretation Comme nts URIC ACID (test code = URIC) 3.3 MG/DL 2.6-6.0 N LACTIC DEHYDROGENASE(LDH)2022-01-03 12:43:00* Test Item Value Reference Range Interpretation Comme nts LACTIC DEHYDROGENASE(LDH) (t est code = LDH) 153 Units/L 81-234 N Coronavirus 2019 nCoV [id number] 09:18:00* Test Item Value Reference Range Interpretation Comme nts Coronavirus 2019 nCoV Bedside (test code = [id number]) Negative Negative ID NOW COVID-19 assay performed on the ID NOW Instrument wilber rapid molecular in vitro diagnostic test utilizing anisothermal nucleic acid amplification technology intendedfor the qualitative detection of nucleic acid from jpvZEJR-OxR-9 viral RNA in direct nasal, nasopharyngeal orthroat [...] patient history, and epidemiologicalinformation . CBC W/AUTO [id number] 08:56:00* Test Item Value Reference Range Interpretation [...] 0.0 X10 3/uL 0.0-0.2 N UR PROTEIN [id number] 16:20:00* Test Item Value Reference Range Interpretation Comme nts UR PROTEIN 24HR (test code = YVAD95V) 49 MG/24HR 0-165 N UR VOLUME (test [...] 24 hour)? 24 Hr CollectUR CREATININE CLEARANCE [id number] 16:19:00* Test Item Value Reference Range Interpretation Comme nts CREATININE CLEARANCE RESULT (test code = CREATCLR) 137 ML/MIN 75-115 H Creatinine Clear ance corrected for body surface area. GLOMERULAR FILTRATION RATE (test code = GFR) 137 71-165 N Reporting units: mL/min/1.73m\\S\\2 (Modified MDRD Formula) CREATININE (test code = CREAT) 0.57 MG/DL 0.60-1.00 L UR CREATININE 24HR (test code = VYZJ10C) 1.2 G/24HR 0.5-1.9 N UR VOLUME (test [...] than 24 hour)? 24 Hr CollectUA RFLX [id number] 16:04:00* Test Item Value Reference Range Interpretation [...] NORMAL UA NITRITE DIPSTICK (test code = PENINE) NEGATIVE NEGATIVE UA LEUKOCYTE ESTERASE DIPSTICK (test code = LEUU) 75 NEGATIVE A UA COMMENT (test code = COMU) VOLUME 10-12 ML URINE SPECIMEN DESCRIPTION (test code = UASPEC) Clean Catch URINE SOURCE: Clean CatchUA [id number] 16:04:00* Test Item Value Reference Range Interpretation [...] URINE SOURCE: Clean CatchCOVID 19 Asymptomatic IH [id number] 14:48:00* Test Item Value Reference Range Interpretation Comments COVID 19 Asymptomatic IH AG (test code = COVNONPUIAG) NEGATIVE Negative " The Dania SARS Antigen ADRY does not differentiate betweenSARS-CoV and SARS-CoV-2 " The [employer]ia SARS Antigen ADRY employs immunofluorescencetechnology in a sandwich design that is used with Dania todetect nucleocapsid protein from SARS-CoV and SARS-CoV-2.This test allows for the detection of SARS-CoV nldFURM-GiU-9. The test detects, but does not differentiate,between the two viruses. " Results are for the identification of MHGB-ZqL-6bmqdwpzvxihh protein antigen. Antigen is generallydetectable in upper [...] i.e., in patient caresettings operating under a CLIA Certificate of Waiver,Certificate of Compliance, or Certificate of Accreditation Use BINAX NOW test: NOCOMPREHENSIVE METABOLIC [id number] 14:41:00* Test Item Value Reference Range Interpretation [...] = ALKP) 93 Units/L 50-130 N URIC [id number] 14:41:00* Test Item Value Reference Range Interpretation Comme nts URIC ACID (test code = URIC) 4.8 MG/DL 2.6-6.0 N LACTIC DEHYDROGENASE(LDH)2021-12-07 14:41:00* Test Item Value Reference Range Interpretation Comme nts LACTIC DEHYDROGENASE(LDH) (t est code = LDH) 251 Units/L 81-234 H CBC W/AUTO [id number] 14:30:00* Test Item Value Reference Range Interpretation [...] 0.0 X10 3/uL 0.0-0.2 N - US [id number] 14:28:00 [facility] 2000 Sex: F Patient Name: HERVE HERNANDEZ Unit No: [id number] EXAMS: CPT CODE: [id number] [place] L[place] [address] BIOPHYSICAL PROFILE: OB ULTRASOUND LIMITED: Location Code: [...] [place] MD Technologist: Rosette Cain Trnscrbd D/ ([id number]) t.SDR.EFM1 [facility] Area NAME: HERVE HERNANDEZ [address] PHYS: [place]. [place] [address] : 2000 AGE: 21 SEX: F LOC: D.Y294 1 PHONE #: [phone] EXAM DATE: 12/07/2021 STATUS: ADM IN FAX #: RAD NO: Page 1 Signed Report- US FET BIO PH MT W/O [id number] 14:28:00 [facility] : 2000 Sex: F Patient Name: HERVE HERNANDEZ Unit No: [id number] EXAMS: CPT CODE: [id number] US FET BIO PH MT W/O NST 63083 BIOPHYSICAL PROFILE: OB ULTRASOUND LIMITED: Location Code: [...] pocket measures 5.9 cm. The cervix is notwell seen due to position. Biophysical profile was performed: breathing movements: 2.Gross body movement: 2. tone: 2.Qualitative amniotic fluid volume: 2.Total score is 8 IMPRESSION: 1. Single viable in vertex presentation. 2. Biophysical profile score excluding nonstress test of 8 of 8. 3. AP 19.0, borderline elevated. at 1428 Reported and signed by: Shelbie Duff MD CC: [place] MD Technologist: Rosette BENTON Trnscrbd D/ (1424) t.SDR.EFM1 Orig Print D/T: S: 12/07/2021 (5157) Probe: [facility] NAME: DAVIDHERVE [address] PHYS: [email or web address] [place] [address] : 2000 AGE: 21 SEX: F LOC: D.Y294 1 PHONE #: [phone] EXAM DATE: 12/07/2021 STATUS: ADM IN FAX #: RAD NO: Page 1 Signed Report- CT ABD PELVIS [id number] 13:49:00 [facility] [place] : 2000 Sex: F Patient Name: HEVRE HERNANDEZ Unit No: [id number] EXAMS: CPT CODE: [id number] CT ABD PELVISW/CONT 71417 Reason: epigastric RUQ pain EXAM: - CT ABD PELVIS W/CONT INDICATION: 20 years -old Female with epigastric RUQ pain TECHNIQUE: Contrast - IV contrast was given. No oral contrast was givenPortal venous phase - abdomen and pelvis No [...] bowel obstruction. No other acute abnormalities demonstrated. Electronically Signed by Chuy Blanc MD on at 1349 Reported and signed by: Chuy Blanc MD [place] [facility] NAME: HERVE HERNANDEZ [address] [place] [address] PHYS: [email or web address] [address] : 2000 AGE: 20 SEX: F LOC: D.RER PHONE #: EXAM DATE: 12/02/2020 STATUS: REG ER FAX #: RAD NO: DC Dt: PAGE 1 Signed Report (CONTINUED) Patient Name: HERVE HERNANDEZ Unit No: [id number] EXAMS: CPT CODE: [id number] CT ABD PELVIS W/CONT 10056 (Continued) Reason: epigastric RUQ pain CC: [place] MD Technologist: AXEL Osorio Trscrpt Dt/ (1349)t.SDR.RXC2 Orig Print D/T: S: 12/02/2020 (2737) CTDI: DLP: [place] [facility] NAME: HERVE HERNANDEZ [address] [place] [address] Blvd PHYS: [place] [address] : 2000 AGE: 20 SEX: F LOC: D.RER PHONE #: EXAM DATE: 12/02/2020 STATUS: REG ER FAX #: RAD NO: DC Dt: PAGE2 Signed ReportDRUG OF ABUSE SCREEN [id number] 13:19:00* Test Item Value Reference Range Interpretation Comme nts UR COCAINE (test code = COCAU) NEGATIVE NEGATIVE UR CANNABINOIDS (test code = CANU) POSITIVE NEGATIVE A UR AMPHETAMINE (test code = AMPHU) NEGATIVE NEGATIVE UR BARBITURATE QUAL (test co de = BARBQLU) NEGATIVE NEGATIVE UR BENZODIAZEPINE (test code = BENZU) NEGATIVE NEGATIVE UR OPIATES QUAL (test code = OPIAQLU) POSITIVE NEGATIVE A UR HCG [id number] 13:16:00* Test Item Value Reference Range Interpretation Comme nts UR HCG QUAL (test code = HCGQLU) NEGATIVE NEGATIVE False negatives may occur when levels of hCGare below 20 mIU/ml. When is still suspected, a new specimenshould be obtained after 48 hours and re-tested.If waiting 48 hours is not medically advisable,the test result should be confirmed using aquantitative hCG assay. BILIRUBIN [id number] 11:53:00* Test Item Value Reference Range Interpretation Comme nts BILIRUBIN DIRECT (test code = BILD) 0.2 MG/DL 0.0-0.3 N [id number] 11:53:00* Test Item Value Reference Range Interpretation Comme nts LIPASE (test code = LIP) 69 Units/L 73-393 L CBC W/AUTO [id number] 11:36:00* Test Item Value Reference Range Interpretation [...] MONOCYTE, BASOPHIL ANDEOSINOPHIL COUNTS. UA RFLX MICROSCOPIC [id number] 11:35:00* Test Item Value Reference Range Interpretation [...] Flank PainURINE SOURCE: Clean CatchUA RFLX MICROSCOPIC [id number] 11:34:00* Test Item Value Reference Range Interpretation [...] culture: Flank PainURINE SOURCE: Clean CatchCOMPREHENSIVE METABOLIC [id number] 11:22:00* Test Item Value Reference Range Interpretation [...] code = ALKP) 87 Units/L 50-130 N [id number] 08:30:00* Test Item Value Reference Range Interpretation Comme nts LIPASE (test code = LIP) 93 Units/L 73-393 N HCG SERUM [id number] 06:59:00* Test Item Value Reference Range Interpretation Comme nts HCG SERUM QUAL (test code = HCGQL) NEGATIVE NEGATIVE False negatives may occur when levels of hCGare below 10 mIU/ml. When is still suspected, a new specimenshould be obtained after 48 hours and re-tested.If waiting 48 hours is not medically advisable,the test result should be confirmed using aquantitative hCG assay. UA RFLX [id number] 06:53:00* Test Item Value Reference Range Interpretation [...] DESCRIPTION (test code = UASPEC) UA RFLX [id number] 06:53:00* Test Item Value Reference Range Interpretation [...] code = UASPEC) Clean Catch COMPREHENSIVE METABOLIC [id number] 06:51:00* Test Item Value Reference Range Interpretation [...] ALKP) 66 Units/L 50-130 N CBC W/AUTO [id number] 06:46:00* Test Item Value Reference Range Interpretation [...] (test code = BA#) x10 3/uL 0.0-0.2 CBC W/AUTO [id number] 06:46:00* Test Item Value Reference Range Interpretation [...] = MO#) 0.40 x10 3/uL 0.0-0.8 N Notes Date/Time Note Provider Source 2022-08-24 04:42:00 [facility] ([facility] OR A [facility]AMP[facility] OF [facility] EMERGENCY PROVIDER REPORT REPORT#:[id number] REPORT STATUS: Signed DATE:08/24/22 TIME: 441 PATIENT: HERVE HERNANDEZ UNIT #: [id number] ROOM/BED: AGE: 21 SEX: F PCP PHYS: [place] MD SERVICE AUTHOR: Chuy Xie Jr, MD * ALL edits or amendments must be made on the electronic/computer document * HPI-Ear Pain/Problem/FB Free Text HPI Notes Free Text HPI Notes 21yo F here c/o right ear pain since yesterday. Denies fever/ear drainage/ trauma. General Initial Greet Date/Time 08/24/22 0433 Presentation Chief Complaint Ear problem R, Pain Onset Occurred Yesterday Symptom Duration Since onset Progression since Onset Unchanged Review of Systems ROS Statements All systems rev neg except as marked. Complete sys rev neg except as marked. Basic Review of Systems Basic ROS EYES: No redness, RESP: No SOB, CV: No chest pain, GI: No abd pain/ vomiting, : No dysuria/frequency, MS: No ext swelling/pain, HEM: No bleeding/ bruising, SKIN: No rash, NEURO: No change MS, NEURO: No focal deficit, PSYCH: NL thought content Focused Review of Systems Ears/Nose/Throat Reports: Earache R. Past Medical History - Adult Stated Complaint SEVERE EAR PAIN Allergies Coded Allergies: No Known Allergies (01/03/22) Home Medications Active Scripts IBUPROFEN (MOTRIN) 600 MG PO QID PRN PRN PAIN IBUPROFEN (MOTRIN) 600 MG PO QID PRN PRN PAIN #30 TABS Ref 1 Prov: 01/03/22 traMADol/APAP (ULTRACET 37.5/325 MG) 1 TAB PO Q4H PRN PRN ACUTE PAIN traMADol/APAP (ULTRACET 37.5/325 MG) 1 TAB PO Q4H PRN PRN ACUTE PAIN #20 TABS Prov: 01/03/22 Reported Medications PNV WITH FE FUMARATE/FA () 1 TAB PO DAILY FERROUS SULFATE (FEOSOL) 325 MG PO DAILY Physical Exam Vital Signs Vital Signs First Documented: Result Date Time Pulse Ox 98 08/24 0432 B/P 174/77 08/24 0432 B/P Mean 109 08/24 0432 O2 Delivery Room air 08/24 431 Temp 97.2 08/24 0432 Pulse 65 08/24 0432 Resp 16 08/24 431 Last Documented: Result Date Time Pulse Ox 98 08/24 0432 B/P 174/77 08/24 0432 B/P Mean 109 08/24 0432 O2 Delivery Room air 08/24 431 Temp 97.2 08/24 0432 Pulse 65 08/242 Resp 16 08/242 Review of Vital Signs Reviewed Basic Physical Exam Basic PE HEAD: Atraumatic/NC, EYES: PERRL, conj clear, NECK: Supple, RESP: No resp distress, CV: Reg rate rhythm, ABD: Soft/non-tender, EXT: No gross abnormality, SKIN: No rashes, warm/dry, NEURO: alert oriented, NEURO: gross movement NL, PSYCH: NL thought content Focused PE General/Const General/Const Awake, Alert, No acute distress, Well appearing, Well developed , Well hydrated, Well nourished, Cooperative, Not toxic appearing Ears/Nose/Throat Right Ear/Mastoid Tympanic membrane red, Tympanic membrane bulging, Fluid behind TM clear. Re-Evaluation MDM Free Text MDM Notes Free Text MDM Notes Given Abx/pain med in ER. Will Rx meds for symptom relief at home. ED Course Medication(s) Ordered Medication(s) Ordered: Anti-Infective Agents Sig/Priyanka Start time Last Medication Dose Route Stop Time Status Admin Amoxicillin/ 875 MG X1ED STA 08/24 440 DC 08/24 Clavulanate Potassium PO 08/24 441 0445 Central Nervous System Agents Sig/Priyanka Start time Last Medication Dose Route Stop Time Status Admin Hydrocodone Bitart/ 1 TAB X1ED STA 08/24 440 DC 08/24 Acetaminophen PO 08/24 441 0445 Patient Discharge Departure Vital Signs/Condition Vital Signs First Documented: Result Date Time Pulse Ox 98 08/24 0432 B/P 174/77 / 0432 B/P Mean 109 08/24 0432 O2 Delivery Room air 08/24 0432 Temp 97.2 08/24 0432 Pulse 65 / 0432 Resp 16 08/24 0432 Last Documented: Result Date Time Pulse Ox 98 08/24 0432 B/P 174/77 08/24 0432 B/P Mean 109 / 0432 O2 Delivery Room air 08/24 0432 Temp 97.2 08/24 0432 Pulse 65 08/24 0432 Resp 16 08/24 0432 All vital signs available at the time of this entry have been reviewed. Condition Stable Clinical Impression Clinical Impression Primary Impression: Right otitis media Disposition Decision Discharge )( Discharged to Home Yes )( Time 0500 )( Date 08/24/22 Discharge/Care Plan (Auto) Prescriptions Current Visit Scripts CEFDINIR (OMNICEF) 300 MG PO Q12H CEFDINIR (OMNICEF) 300 MG PO Q12H #14 CAPS PSEUDOEPHEDRINE ER (SUDAFED 12 HR) 120 MG PO Q12H PSEUDOEPHEDRINE ER (SUDAFED 12 HR) 120 MG PO Q12H #14 TABS predniSONE 60 MG PO DAILY predniSONE 60 MG PO DAILY #21 TABS UNTIL FINISHED (7 DAYS) Patient Instructions ED Otitis Media Adult Additional Instructions Take new medications as directed. Recommend Advil/Motrin/Aleve as needed for ear pain. at 0503 RPT #:[id number] END OF REPORT [facility] 2022-02-06 16:11:00 [id number] [place], [place] PATIENT NAME: HERVE HERANNDEZ ADMIT DATE: 01/03/22 ACCOUNT NO: [id number] ROOM NO: D.Y212 AGE: 21 REPORT TYPE: 360 - QUERY RESPONSE DOCUMENT SEX: F ADMITTING PHYSICIAN:[place] MD ATTENDING PHYSICIAN:[place] MD Provider Query QUERY TEXT: Condition General 360MD Query related questions should be directed to: [facility] Coding Query Helpline Based on your clinical judgment, can you please clarify if Pre-eclampsia was confirmed, Pre-eclampsia was not confirmed, or other more appropriate diagnosis? The patient's Clinical Indicators include: Assessment and Plan: 2) Mild to moderate pre-eclampsia, third trimester - H and P S, 01/07 Free text A P: POD#1 s/p rpt c/s with development of severe PIH PP. Has required hydralazine x 2 doses total - OB Postpart Progr Note 01/04 Pre-procedure diagnosis: SIUP at 39w0d, Previous Section for Elective Repeat - OP Note, 01/03 Options provided: -- Respond - Create new note now -- Dismiss - Not applicable / Not valid -- Dismiss - Clinically unable to determine / Unknown -- Assign to another provider QUERY RESPONSE: Severe preeclampsia was confirmed. Query created by: Radha Maldonado on 02/01/2022 3:19 AM at 1611 PATIENT NAME: HERVE HERNANDEZ [facility] 2022-01-14 21:35:00 [id number] [place], [place] PATIENT NAME: HERVE HERNANDEZ ADMIT DATE: 01/03/22 ACCOUNT NO: [id number] ROOM NO: D.Y212 AGE: 21 REPORT TYPE: 360 - QUERY RESPONSE DOCUMENT SEX: F ADMITTING PHYSICIAN:South Membreno MD ATTENDING PHYSICIAN:South Membreno MD Provider Query QUERY TEXT: Specificity General 360MD Query related questions should be directed to:[facility] Coding Query Helpline Please provide any known specificity for IRON DEFICIENCY ANEMIA documented in the [facility] 01/08/20. Acute blood loss anemia Iron deficiency anemia Anemia, other specified Anemia , unspecified The patient's Clinical Indicators include: DELIVERY EBL at delivery (ml's): 810 HEMATOCRIT (%) 28.5L HEMOGLOBIN (G/DL) 9.1L - 01/03/22 HEMATOCRIT (%) 25.7L HEMOGLOBIN (G/DL) 8.2L - 01/04/22 IRON DEFICIENCY ANEMIA - [facility] 01/07/ VITS W-CA,FE,FA(<1MG) 1 TABLET 09:12 1 EACH Oral Options provided: -- Respond - Create new note now -- Dismiss - Not applicable / Not valid -- Dismiss - Clinically unable to determine / Unknown -- Assign to another provider QUERY RESPONSE: Nutritional iron deficiency anemia (throughout her -despite po iron and an iron infusion) Query created by: Kaila Plunkett on 01/10/2022 4:10 AM at 2135 PATIENT NAME: HERVE HERNANDEZ [facility] 2022-01-06 08:40:00 [facility] ([facility]) OB Postpart Progr Note REPORT#:[id number] REPORT STATUS: Signed DATE:01/06/22 TIME: 0840 PATIENT: HERVE HERNANDEZ UNIT #: [id number] ROOM[address]BED: [address] : 02 AGE: 21 SEX: F ATTEND: South Membreno MD ADM AUTHOR: Corby Sullivan MD * ALL edits or amendments must be made on the electronic/computer document * Subjective Subjective Admission EGA: Weeks: 39 Days: 0 EGA at delivery (wks/days): 39 weeks Status/Day: post operative (day 3) Patient reports: Patient reports: Yes normal lochia, Yes pain management effective Objective Nursing Documentation Review Nursing Data: The data set between the solid lines has been imported from nursing documentation. Any exceptions have been noted below under Provider comments. Feeding preference: Post hemorrhage risk score: Medium Risk for Hemorrhage. Provider comments on imported nursing data: [] General VS: Vital Signs: Date Time Temp Pulse Resp B/P B/P Pulse O2 O2 Flow FiO2 Mean Ox Delivery Rate 01/06 0500 98.5 88 18 136/88 01/06 0041 98.5 86 18 128/62 01/05 1940 98.4 55 18 135/69 01/05 1617 97.9 70 18 128/82 PATIENT WEIGHT: Weight (lb): Weight (oz): Weight (kg): Physical Exam Neuro: Exam: alert, oriented x3, normal speech Abdomen: soft, no abnormal tenderness Incision site: well approximated edges, dry Uterus: firm, involution appropriate, non-tender Diagnosis, Assessment Plan Diagnosis, Assessment Plan Assessment: nml progress Plan: routine care, discharge tomorrow Plan discussed with: patient at 0842 RPT #:[id number] END OF REPORT [facility] 2022-01-05 07:27:00 [facility] ([facility]) OB Postpart Progr Note REPORT#:[id number] REPORT STATUS: Signed DATE:01/05/22 TIME: 726 PATIENT: HERVE HERNANDEZ UNIT #: [id number] ROOM/BED: Y212-1 : 02 AGE: 21 SEX: F ATTEND: South Membreno MD ADM AUTHOR: Julieta Posadas APRNNP * ALL edits or amendments must be made on the electronic/computer document * Julieta Posadas 01/05/22 0727: Subjective Subjective Admission EGA: Weeks: 39 Days: 0 EGA at delivery (wks/days): 39 weeks Status/Day: post operative (day 2) Patient reports: Patient reports: Yes no complaints, Yes normal lochia, Yes pain management effective, Yes tolerating po well, Yes voiding well, Yes voiding without pain, Yes tolerating ambulation, Yes flatus, No bowel movement, No nausea, No vomiting Objective Nursing Documentation Review Nursing Data: The data set between the solid lines has been imported from nursing documentation. Any exceptions have been noted below under Provider comments. Feeding preference: Post hemorrhage risk score: High Risk for Hemorrhage. Provider comments on imported nursing data: [] General VS: Vital Signs: Date Time Temp Pulse Resp B/P [...] Weight (lb): Weight (oz): Weight (kg): Physical Exam Lungs: no distress Neuro: Exam: alert, oriented x3 Abdomen: no abnormal tenderness Incision site: well approximated edges, no drainage, no inflammation Uterus: firm, involution appropriate Fundus: firm, at the umbilicus Lochia: normal Lower extremities: Edema: trace Calf tenderness: negative Diagnosis, Assessment Plan Diagnosis, Assessment Plan Free text A P: Post op day 2, BP stable on Labetolol. Plan: routine care, discharge today (pending discharge) Plan discussed with: patient Comments: Discussed with patient in detail; Follow up appointment, medication instructions, Lucie-care, incisional care, breast care, diet, activity, pelvic rest, post- emotional changes/ resources, when to seek emergency care and signs of complications. Angy Hackett I 01/05/22 0840: Diagnosis, Assessment Plan Diagnosis, Assessment Plan Free text A P: The patient was seen and examined, she would like to stay as her baby is still in NICU Assessment: nml progress Plan: routine care at 0733 at 0841 RPT #:[id number] END OF REPORT [facility] 2022-01-04 07:16:00 [facility] ([facility]) OB Postpart Progr Note REPORT#:[id number] REPORT STATUS: Signed DATE:01/04/22 TIME: 715 PATIENT: HERVE HERNANDEZ UNIT #: [id number] ROOM/BED: [place] [address] : 02 AGE: 21 SEX: F ATTEND: South Membreno MD ADM AUTHOR: Diana Welsh MD * ALL edits or amendments must be made on the electronic/computer document * Subjective Subjective Admission EGA: Weeks: 39 Days: 0 EGA at delivery (wks/days): 39 weeks Status/Day: post operative (day 1) Patient reports: Patient reports: Yes normal lochia, Yes pain management effective, Yes tolerating po well, No excessive bleeding Nursing reports: Comments: good uop; pt on magSO4 Objective Nursing Documentation Review Nursing Data: The data set between the solid lines has been imported from nursing documentation. Any exceptions have been noted below under Provider comments. Feeding preference: Post hemorrhage risk score: High Risk for Hemorrhage. Provider comments on imported nursing data: [] General VS: Vital Signs: Date Time Temp Pulse Resp B/P B/P Pulse O2 O2 Flow FiO2 Mean Ox Delivery Rate 01/04 0659 58 94 01/04 0656 57 94 01/04 0654 59 94 01/04 0649 56 94 01/04 0644 57 94 06/16 0639 58 94 [...] 67 95 06/15 2043 62 96 06/15 2041 63 94 06/15 2038 70 96 06/15 3 61 94 06/15 8 62 95 06/15 2025 93.0 06/15 2025 61 123/72 06/15 2023 64 94 06/15 2022 62 95 06/15 2018 63 94 06/15 2017 64 95 06/15 2012 65 96 06/15 2009 97.9 14 06/15 2007 62 94 06/15 2006 64 94 06/15 2002 65 96 06/15 [...] 06/15 1202 18 06/15 1202 61 96 06/15 1157 60 96 06/15 1155 158/98 06/15 1152 56 97 06/15 1150 134.0 06/15 1150 67 172/104 06/15 1147 131.0 06/15 1147 60 180/102 100 06/15 1145 129.0 06/15 1145 62 171/97 06/15 1142 98.2 18 06/15 1142 125.0 06/15 1142 67 169/94 98 06/15 0932 115.0 06/15 0932 78 158/88 06/15 0822 125.0 06/15 0822 73 157/103 01/03 0814 98.0 01/03 0801 121.0 01/03 0801 87 145/104 PATIENT WEIGHT: Weight (lb): Weight (oz): Weight (kg): Physical Exam Lungs: no distress Neuro: Exam: alert, oriented x3 Abdomen: no abnormal tenderness Incision site: well approximated edges, no drainage, no inflammation Fundus: firm, at the umbilicus Result Findings/Data: Laboratory Tests: 01/04 01/03 01/03 01/03 0520 1308 1212 0830 Chemistry Sodium (133 - 145 MMOL/L) 138 [...] 3.8 Albumin/Globulin Ratio (1.1 - 2.2) 0.5 L Hematology WBC (4.80 - 10.80 x10 3/uL) 10.04 [...] (Auto) (24 - 44 %) 13.8 L Weston % (Auto) (0.0 - 4.0 %) 5.2 H Eos % (Auto) (0.0 - 2.7 %) 0.6 Baso % (Auto) (0.0 - 0.5 %) 0.5 Eos # (Auto) (0.0 - 0.5 x10 3/uL) 0.06 Baso # (Auto) (0.0 - 0.2 x10 3/uL) 0.05 Abs Immat Gran (auto) (0.00 - 0.03 0.04 H x10 3/uL) Absolute Neuts (auto) (1.8 - 7.7 x10 3/uL) 7.98 H Absolute Lymphs (auto) (1.0 - 4.8 1.39 x10 3/uL) Absolute Monos (auto) (0.0 - 0.8 x10 3/uL) 0.52 Absolute Nucleated RBC (0.0 - 0.2 0.0 X10 3/uL) Immature Gran % (0.0 - 2.0 %) 0.4 Nucleated RBC % (0.0 - 0.0 %) 0.0 Serology SARS CoV-2 RNA Rapid HYACINTH (Negative) Negative Urines Ur Random Creatinine (MG/DL) 33.97 U Random Total Protein (MG/DL) 70 Protein/Creatinin Ratio (< 0.2) 2.1 H Diagnosis, Assessment Plan Diagnosis, Assessment Plan Free text A P: POD#1 s/p rpt c/s with development of severe PIH PP. Has required hydralazine x 2 doses total. Currently on labetalol 100mg po q 12 hr with stable BPs good uop - no e/o mag toxicity Overall recovering appropriately Will cont mag for 24hr from delivery then d/c use and if stable, TTF at 0718 RPT #:[id number] END OF REPORT [facility] 2022-01-03 14:12:00 [id number] [place], [place] PATIENT NAME: HERVE HERNANDEZ ADMIT DATE: 01/03/22 ACCOUNT NO: [id number] ROOM NO: D.Y212 AGE: 21 REPORT TYPE: OPERATIVE REPORT SEX: F ADMITTING PHYSICIAN:South Membreno MD ATTENDING PHYSICIAN:South Membreno MD OPERATION DATE: 01/03/2022 PREOPERATIVE DIAGNOSES: 1. Billings intrauterine at 39 weeks and 0 days. 2. Previous section for elective repeat . POSTOPERATIVE DIAGNOSES: 1. Billings intrauterine at 39 weeks and 0 days. 2. Previous section for elective repeat . PROCEDURE PERFORMED: Secondary low transverse section via Pfannenstiel skin incision. PRIMARY SURGEON: South Membreno MD DIRECT MAIL MARKETER: Joe Taylor. ANESTHESIOLOGIST: Gab Jackman CRNA. ANESTHESIA: Spinal anesthetic. OPERATIVE FINDINGS: Included: 1. Omental adhesions. 2. Normal-appearing uterus, tubes, and ovaries. 3. Liveborn male in cephalic, right occiput transverse position with Apgars of 9 at 1 minute and 9 at 5 minutes and a weight of 7 pounds 15 ounces or 3590 grams and 4 normal-appearing placenta. COMPLICATIONS: None. ESTIMATED BLOOD LOSS: 804 mL. SPECIMENS REMOVED: Abdominal wall scar, which was excised and discarded. DISPOSITION: The patient went to the recovery room in stable condition. PROCEDURE IN DETAIL: Ms. Hernandez was taken to the OR and placed on the table in the dorsal supine position where spinal anesthesia was [...] of the rectus fascia, which was nicked in the midline, tented up with pickups with teeth and incised with Diaz scissors. At this time, Jaciel clamps were applied to the inferior aspect of the rectus fascia and it was sharply dissected away from the underlying lower uterine segment using Diaz scissors. At this time, attention was turned to the superior aspect of the fascia, which was treated in similar fashion. The rectus muscles were then tented up with hemostat clamps and incised using a scalpel superficially. A small incision was made into the peritoneal cavity and palpation was performed to ensure that there was no bowel or bladder adherent to the parietal peritoneum. When the parietal peritoneum was noted to be free of adhesions, the Diaz scissors were used to incise the parietal peritoneum both inferiorly and superiorly. The parietal-peritoneal opening was then extended bluntly. At this time, the bladder blade was applied and the uterus was observed and appeared to be normal. The vesicouterine peritoneum was then tented up using Burkinan forceps and incised using Metzenbaum scissors. The [...] right hand presenting alongside the face was delivered. This was followed by the shoulders and body of a liveborn male infant, weighing 7 pounds 15 ounces with Apgars 9 at 1 minute and 9 at 5 minutes. The cord was doubly clamped and cut and the was handed off to the awaiting staff. At this time, cord bloods were collected and the placenta was manually removed. The uterus was then exteriorized, cleared of all clots and debris and repaired in 2 layers using 0 Vicryl suture in continuous interlocking fashion. At this time, the uterus was inspected prior to closing its incision. 1000 mcg of Cytotec were placed into the uterus to facilitate uterine contractions and hemostasis. After repair of the lower uterine segment, Surgicel powder was applied and the uterus was inspected and noted to be hemostatic. The abdomen was irrigated and cleared of all clots and debris and the uterus was returned to the abdomen. At this time, the parietal peritoneum and rectus muscles were closed together using 2-0 chromic suture in continuous fashion. The rectus fascia was then reapproximated using 0 Vicryl suture in continuous fashion and the subcutaneous tissue was irrigated and it was repaired at the layer of the Camper's fascia using 0 plain suture in continuous fashion. The skin was reapproximated using 3-0 Monocryl suture and a pressure dressing was applied. The patient went to the recovery room in stable condition having tolerated the procedure well. Dictated By: South Membreno MD WT: OP:FIFI/TEMO/MICH Conf#: [id number]/DID#: [id number] Authenticated and Edited by South Membreno MD On 01/14/22 3:31:13 PM at 0333 PATIENT NAME: HERVE HERNANDEZ [facility] 2022-01-03 13:12:00 [facility] ([facility]) Operative Note - Full REPORT#:[id number] REPORT STATUS: Signed DATE:01/03/22 TIME: 1312 PATIENT: HERVE HERNANDEZ UNIT #: [id number] ROOM/BED: [facility] : 02 AGE: 21 SEX: F ATTEND: South Membreno MD ADM AUTHOR: South Membreno MD * ALL edits or amendments must be made on the electronic/computer document * Operative Report Start date: 01/03/22 Start time: 101 Pre-procedure diagnosis: SIUP at 39w0d Previous Section for Elective Repeat Post-procedure diagnosis: SIUP at 39w0d Previous Section for Elective Repeat Procedures performed: Secondary Low Transverse Section via Pfannensteil Skin Incision Technique/Procedure: Secondary Low Transverse Section via Pfannensteil Skin Incision Primary Surgeon: Hemant Membreno MD Facilitator(s): Joe Taylor Anesthesiologist: Gab Jackman CRNA Anesthesia: spinal anesthetic Operative findings: Omental Adhesions Normal Appearing Uterus, Tubes and Ovaries LB Male, Cephalic, ROT, Apgars 9,9, Weight 7lbs 15 oz (3590 gms) Normal appearing placenta Complications: none Estimated blood loss in ml's: 804 cc Specimens removed/altered: Abdominal wall scar-discarded Implant(s): none Disposition: PACU, return to floor, stable Counts: Sponge count: correct Instrument count: correct Needle count: correct Dictation number: [id number] at 1413 RPT #:[id number] END OF REPORT [facility] 2022-01-03 13:08:00 [facility] ([facility]) OB Delivery Note REPORT#:[id number] REPORT STATUS: Signed DATE:01/03/22 TIME: 1308 PATIENT: HERVE HERNANDEZ UNIT #: [id number] ROOM/BED: Y242-1 : 02 AGE: 21 SEX: F ATTEND: South Membreno MD ADM AUTHOR: South Membreno MD * ALL edits or amendments must be made on the electronic/computer document * OB Delivery Pre-delivery GBS status: GBS status: positive Prophylaxis administered: none, elective repeat with pre-op anti- biotics evaluation at delivery: NRP certified personnel, manager rehab Admission EGA: Weeks: 39 Days: 0 EGA at delivery (wks/days): 39 weeks Admission indication: Elective Repeat Section Blood Loss/Details Blood loss at delivery: <1K: no sx hypovol=no hem QBL at delivery (ml's): 804 EBL at delivery (ml's): 810 Baby A Information Baby A information Delivery date: 01/03/22 Delivery time: 1028 status: live born Wt of baby (grams): 3590 Wt of baby (lbs/oz): 7lbs/15oz Gender: male 1 minute: 9 5 minutes: 9 Presentation: vertex ABG details Baby A Cord blood gases: not collected Nuchal cord Baby A Nuchal cord: no Delivery Delivery section indication: elective repeat Priority: scheduled Antibiotic prior to incision: 1 dose )(SCDs applied activated: Yes Uterine incision: low transverse Uterine scar: intact Consent: indication discussed, questions answered, pt consent to op delivery Mother's condition: mother stable Infant's condition: stable in room at 1312 RPT #:[id number] END OF REPORT [facility] 2021-12-08 10:57:00 [facility] ([facility]) OB-ORDER TO DELIVERY SUPERVISOR Progress Note REPORT#:[id number] REPORT STATUS: Signed DATE:12/08/21 TIME: 1057 PATIENT: HERVE HERNANDEZ UNIT #: [id number] ROOM/BED: Y265-1 : 02 AGE: 21 SEX: F ATTEND: South Membreno MD ADM AUTHOR: Diana Welsh MD * ALL edits or amendments must be made on the electronic/computer document * Subjective Chief complaint: PIH w/u Patient reports: Patient reports: No: complaints. Objective General VS/I O: Last Documented: Result Date Time B/P Mean 95.0 12/08 0832 B/P 116/83 12/08 0832 Pulse 70 12/08 0832 Pulse Ox 99 12/07 1600 Temp 98.3 12/07 1600 Resp 16 12/07 1600 Vital Signs Date Temp Pulse Resp B/P B/P Mean Pulse Ox FiO2 12/07-12/08 98.3-99.0 62-92 14-16 116-144/66-98 89.0-114.0 97-99 24 hour I O ending at 0700: 12/08 0700 12/07 1900 Intake Total Output Total Balance Patient 198 lb Weight PATIENT WEIGHT: Weight (lb): 198 Weight (oz): 6.66 Weight (kg): 90.000 Medications: Active Meds + DC'd Last 24 Hrs Multivi/Iron Carb/Fe Sulf/FA/Prenat (MATERNA) 1 EACH DAILY PO Docusate Sodium (COLACE 100MG CAPSULE) 100 MG BID PO Acetaminophen (TYLENOL 500MG EXTRA STRENGTH TABLET) 500 MG Q4H PRN PRN PO Zolpidem Tartrate (AMBIEN 5MG TABLET) 5 MG BEDTIME PRN PRN PO Physical Exam General appearance: no acute distress Respiratory: no distress Abdomen: non-tender, soft, gravid Genitourinary: no flank pain, no urinary catheter Extremities: moves all, no edema Neuro/GENERAL PURCHASING AGENT: alert, oriented x 3 Results Findings/Data: Laboratory Tests 12/07 1410 Chemistry Sodium (133 - [...] (Auto) (24 - 44 %) 17.0 L Weston % (Auto) (0.0 - 4.0 %) 7.9 [...] - 0.0 %) 0.0 Laboratory Tests 12/07 1410 Serology SARS-CoV-2 Ag (Rapid) (Negative) NEGATIVE Laboratory Tests 12/07 1519 Urines Ur Spec Description Clean Catch Urine Color (YELLOW) Yellow Urine Appearance (CLEAR) Turbid Urine pH (5.5 - 7.0) 6.0 Ur Specific [place] (1.001 - 1.035) 1.022 Urine Protein (NEGATIVE [...] Urine Comment VOLUME 10-12 ML Diagnosis, Assessment Plan Free Text A P: 35 2/7 wks w/ h/o prior c/s c/b PIH admitted by Dr. Membreno yesterday for mildly elevated BPs. PIH labs were normal; 24hr urine protein underway. BPs range from normal to mildly increased. Plan: f/u 24hr urine protein and dispo based on results. pt planning rpt c/s at 1059 RPT #:[id number] END OF REPORT [facility] 2020-12-02 14:15:00 [facility] ([facility]) OR A [facility]AMP[facility] OF [facility] EMERGENCY PROVIDER REPORT REPORT#:[id number] REPORT STATUS: Signed DATE:12/02/20 TIME: 1415 PATIENT: HERVE HERNANDEZ UNIT #: [id number] ROOM/BED: AGE: 20 SEX: F PCP PHYS: No Primary or Family Physician SERVICE AUTHOR: David Kwong MD * ALL edits or amendments must be made on the electronic/computer document * HPI-Abd Pain F Under 40 Free Text HPI Notes Free Text HPI Notes 20-year-old female with past medical history of delivery approximately 2 months ago, prior cholecystectomy approximately 4 years ago, who was seen in the ER this morning for epigastric pain, and return because epigastric pain returned after she ate, the patient has any nausea vomiting at this time, the pain is 8 out of 10 in intensity radiated to the back, patient denies hematemesis, melena' s, hematochezia. Nothing make it feel better nothing makes it feel worse except flu for what she consulted to emergency department. Patient denies fever, chills, body aches, cough, shortness of breath, been out of the country in the last 30 days, or been exposed to somebody with coronavirus that the patient knows of General Confirmed Patient Yes Patient Type New patient Initial Greet Date/Time 12/02/20 1015 Presentation Chief Complaint Abdominal pain Risk-Abd Pain F Under 40 )( Ectopic Risk factors reviewed Review of Systems Free Text ROS Notes Free Text ROS Notes Constitutional: Negative for fever, chills HENT: Negative for [...] hallucinations, no delusions. Past Medical History - Adult Stated Complaint ABDOMINAL PAIN Allergies Coded Allergies: No Known Allergies (12/02/20) Home Medications Active Scripts PANTOPRAZOLE DR (PROTONIX) 40 MG PO DAILY PANTOPRAZOLE DR (PROTONIX) 40 MG PO DAILY #30 TABS Prov: 12/02/20 ONDANSETRON ODT (ZOFRAN ODT) 4 MG PO Q6H PRN PRN NAUSEA/VOMITING ONDANSETRON ODT (ZOFRAN ODT) 4 MG PO Q6H PRN PRN NAUSEA/VOMITING #15 TABS Prov: 12/02/20 Calculated Suicide Risk (nurs) No risk Smoking status: Smoking status for patients 13 years old or older: Never Smoker Physical Exam Vital Signs Vital Signs First Documented: Result Date Time Pulse Ox 100 [...] of Vital Signs Reviewed Free Text PE Notes Free Text PE Notes Constitutional: oriented to person, place, and time. appears [...] to person, place, and time. normal strength. No cranial nerve deficit or sensory deficit. GCS eye subscore is 4. GCS verbal subscore is 5. GCS motor subscore is 6. Skin: Skin is warm, dry and intact. Interpretation Diagnostics Lab Results Interpretation Results Laboratory Tests 12/02/20 1132: [Embedded Image Not Available] 12/02/20 1110: [Embedded Image Not Available] Laboratory Tests: 12/02 12/02 1132 1113 Hematology WBC [...] pH (5.5 - 7.0) 5.5 Ur Specific [place] (1.001 - 1.035) >= 1.030 Urine Protein (NEGATIVE mg/dL) 30 H Urine Glucose (UA) (NEGATIVE mg/dL) NEGATIVE Urine Ketones (NEGATIVE mg/dL) NEGATIVE Urine Blood (NEGATIVE) TRACE H Urine Nitrite (NEGATIVE) NEGATIVE Urine Bilirubin (NEGATIVE) 1+ H Urine Urobilinogen (NORMAL mg/dL) NORMAL Ur Leukocyte Esterase (NEGATIVE) NEGATIVE Urine Culture Screen Criteria not met Urine Comment VOLUME 10-12 ML Recent Impressions: CAT SCAN - CT ABD PELVIS W/CONT 12/02 1315 Report Impression - Status: SIGNED Entered: 12/02/2020 1352 IMPRESSION: 1. Prior cholecystectomy. 2. Normal appendix. 3. No evidence of bowel obstruction. No other acute abnormalities demonstrated. Impression By: [email or web address] - Chuy Blanc MD Re-Evaluation [facility] )( Re-Evaluation/Progress #1 Text/Dict Note Vital signs stable, patient with significant improvement after [...] mom and they agreed and understood the plan. Time of Re-Eval 1418 )( Re-Eval Status Improved ED Course Medication(s) Ordered Medication(s) Ordered: Autonomic Drugs Sig/Priyanka Start time Last Medication Dose [...] 1,000 ML X1ED STA 12/02 1033 DC 05/ IV 12/02 1132 1042 Patient Discharge Departure Vital Signs/Condition Vital Signs First Documented: Result Date Time Pulse Ox 100 [...] have been reviewed. Condition Stable, Improved Clinical Impression Clinical Impression Primary Impression: Gastritis Secondary Impressions: GERD (gastroesophageal reflux disease) Disposition Decision Discharge )( Discharged to Home Yes )( Time 1419 )( Date 12/02/20 COVID-19 Discharge Plan Criteria Not Met for Testing The patient did not meet criteria for acute COVID19 testing today in the emergency department. The patient has received COVID19 precautions and home quarantine information. Discharge/Care Plan Counseled Regarding Diagnosis, Lab results, Imaging studies, Prescriptions, Need for follow-up, When to return to ED Rx Drug Database Reviewed Yes Prescriptions Bentyl, Zofran, Protonix (Auto) Prescriptions Current Visit Scripts DICYCLOMINE (BENTYL) 20 MG PO QID DICYCLOMINE (BENTYL) 20 MG PO QID #30 TABS ONDANSETRON (ZOFRAN) 4 MG PO Q6H PRN PRN nausea ONDANSETRON (ZOFRAN) 4 MG PO Q6H PRN PRN nausea #15 TABS FOR NAUSEA/VOMITING PANTOPRAZOLE DR (PROTONIX) 40 MG PO DAILY PANTOPRAZOLE DR (PROTONIX) 40 MG PO DAILY #30 TABS Prescriptions Reviewed Risks, Benefits, Alternative treatment Patient Instructions ED Gastritis (Adult), ED GERD (Adult) Additional Instructions Please take the medication as prescribed. Please follow-up with primary care physician in 3 to 5 days. Please follow-up with GI for EGD and elevated LFTs work-up status post cholecystectomy 4 years ago If not better or getting worse please return to the emergency department or call 911 Referrals PRIMARY CARE: 2-3 Days Patient is a GI referral due to elevated LFTs, and gastritis, status post cholecystectomy 4 years ago Departure Forms ABNORMAL LABS Advance Care Planning Documents Reviewed With patient, With surrogate/proxy Discharge Note I have spoken with the patient and/or caregivers. I have explained the patient's condition, diagnoses and treatment plan based on the information available to me at this time. I have answered the patient's and/or caregiver's questions and addressed any concerns. The patient and/or caregivers have as good an understanding of the patient's diagnosis, condition and treatment plan as can be expected at this point. The vital signs have been stable. The patient's condition is stable and appropriate for discharge from the emergency department. The patient will pursue further outpatient evaluation with the primary care physician or other designated or consulting physician as outlined in the discharge instructions. The patient and/or caregivers are agreeable to this plan of care and follow-up instructions have been explained in detail. The patient and/or caregivers have received these instructions in written format and have expressed an understanding of the discharge instructions. The patient and/or caregivers are aware that any significant change in condition or worsening of symptoms should prompt an immediate return to this or the closest emergency department or a call to 911. Quality Measures BP F/U for HTN F/u with PCP/other doc at 1152 RPT #:[id number] END OF REPORT [facility] 2020-12-02 06:22:00 [facility] ([facility]) OR A CAMPUS OF [facility] EMERGENCY PROVIDER REPORT REPORT#:[id number] REPORT STATUS: Signed DATE:12/02/20 TIME: 621 PATIENT: HERVE HERNANDEZ UNIT #: [id number] ROOM/BED: AGE: 20 SEX: F PCP PHYS: No Primary or Family Physician SERVICE AUTHOR: Patrick Mehta MD * ALL edits or amendments must be made on the electronic/computer document * HPI-Abd Pain F Under 40 Free Text HPI Notes Free Text HPI Notes Patient presents complaints of epigastric pain since this morning. She reports the pain is epigastric sometimes radiated up midsternal and to the back. Patient has a history of previous cholecystectomy status post 2 months ago. She had a at the time. Patient smokes but denies any drug or alcohol use. Denies similar pains in the past. Denies any right upper quadrant pain. General Confirmed Patient Yes Patient Type New patient Initial Greet Date/Time 12/02/20621 Pt in Research Study? NO Assumed Care at Time 621 Date 12/02/20 Presentation Chief Complaint Abdominal pain Hx Obtained From Patient Sudden in Onset? No Onset Occurred Today Symptom Duration Constant Caused by No trauma by history Risk-Abd Pain F Under 40 )( Ectopic Risk factors reviewed Review of Systems ROS Statements Complete sys rev neg except as marked. Focused Review of Systems GI Reports: Abdominal pain, Nausea. Past Medical History - Adult Stated Complaint PUI-CHEST PAIN-ABDOMINAL PAIN-HEADACHE Allergies Coded Allergies: No Known Allergies (12/02/20) Home Medications Active Scripts DICYCLOMINE (BENTYL) 20 MG PO QID DICYCLOMINE (BENTYL) 20 MG PO QID #30 TABS Prov: 12/02/20 ONDANSETRON (ZOFRAN) 4 MG PO Q6H PRN PRN nausea ONDANSETRON (ZOFRAN) 4 MG PO Q6H PRN PRN nausea #15 TABS Prov: 12/02/[address] (PROTONIX) 40 MG PO DAILY PANTOPRAZOLE DR (PROTONIX) 40 MG PO DAILY #30 TABS Prov: 12/02/20 Physical Exam Vital Signs Vital Signs First Documented: Result Date Time Pulse Ox 100 12/02 0623 B/P 139/85 / 0623 B/P Mean 103 12/02 0623 O2 Delivery Room air 12/02 0623 Temp 36.2 12/02 0623 Pulse 58 / 0623 Resp 16 12/02 0623 Last Documented: Result Date Time Pulse Ox 100 12/02 0623 B/P 139/85 12/02 0623 B/P Mean 103 12/02 0623 O2 Delivery Room air 12/02 0623 Temp 36.2 12/02 0623 Pulse 58 12/02 0623 Resp 16 12/02 0623 Review of Vital Signs Reviewed Free Text PE Notes Free Text PE Notes CONSTITUTIONAL: Alert and Oriented [...] II-XII, intact, moves all extremities well, 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 PSYCH: mood and affect appropriate. no SI, no HI Interpretation Diagnostics Lab Results Interpretation Results Laboratory Tests 12/02/20638: [Embedded Image Not Available] 12/02/20633: [Embedded Image Not Available] Laboratory Tests: 12/02 Chemistry Sodium (133 - 145 MMOL/L) 140 [...] pH (5.5 - 7.0) 6.0 Ur Specific [place] (1.001 - 1.035) >= 1.030 Urine Protein [...] 37 G/DL) 30.8 L RDW Coeff of [place] (11.5 - 14.5 %) 14.6 H Plt Count (150 - 450 x10 3/uL) 270 Neut % (Auto) (42 - 86 %) 58.5 Lymph % (Auto) (24 - 44 %) 34.3 [place] % (Auto) (0.0 - 4.0 %) 7.2 H Absolute Neuts (auto) (1.8 - 7.7 x10 3/uL) 3.10 Absolute Lymphs (auto) (1.0 - 4.8 x10 3/uL) 1.90 Absolute Monos (auto) (0.0 - 0.8 x10 3/uL) 0.40 Re-Evaluation MDM )( Re-Evaluation/Progress #1 )( Re-Eval Status Improved ED Course Medication(s) Ordered Medication(s) Ordered: Gastrointestinal Drugs Sig/Priyanka Start time Last Medication Dose Route Stop Time Status Admin Famotidine 0 .STK-MED ONE 12/02 629 DCr IV Famotidine 20 MG X1ED STA 12/02 06 DCDr 12/02 Sodium Chloride 8 ML IV 12/02 1627 0637 Patient Discharge Departure Vital Signs/Condition Vital Signs First Documented: Result Date Time Pulse Ox 100 12/02 0623 B/P 139/85 12/02 0623 B/P Mean 103 12/02 0623 O2 Delivery Room air 12/02 06 Temp 36.2 12/02 06 Pulse 58 12/02 0623 Resp 16 12/02 0623 Last Documented: Result Date Time Pulse Ox 100 12/02 0623 B/P 139/85 12/02 0623 B/P Mean 103 12/02 0623 O2 Delivery Room air 12/02 06 Temp 36.2 12/02 0623 Pulse 58 12/02 0623 Resp 16 12/02 0623 All vital signs available at the time of this entry have been reviewed. Condition Stable Clinical Impression Clinical Impression Primary Impression: GERD (gastroesophageal reflux disease) Time of Impression 725 Disposition Decision Discharge )( Discharged to Home Yes )( Time 07 )( Date 12/02/20 Discharge/Care Plan (Auto) Prescriptions Current Visit Scripts PANTOPRAZOLE DR (PROTONIX) 40 MG PO DAILY PANTOPRAZOLE DR (PROTONIX) 40 MG PO DAILY #30 TABS ONDANSETRON ODT (ZOFRAN ODT) 4 MG PO Q6H PRN PRN NAUSEA/VOMITING ONDANSETRON ODT (ZOFRAN ODT) 4 MG PO Q6H PRN PRN NAUSEA/VOMITING #15 TABS Discharge Note I have spoken with the patient and/or caregivers. I have explained the patient's condition, diagnoses and treatment plan based on the information available to me at this time. I have answered the patient's and/or caregiver's questions and addressed any concerns. The patient and/or caregivers have as good an understanding of the patient's diagnosis, condition and treatment plan as can be expected at this point. The vital signs have been stable. The patient's condition is stable and appropriate for discharge from the emergency department. The patient will pursue further outpatient evaluation with the primary care physician or other designated or consulting physician as outlined in the discharge instructions. The patient and/or caregivers are agreeable to this plan of care and follow-up instructions have been explained in detail. The patient and/or caregivers have received these instructions in written format and have expressed an understanding of the discharge instructions. The patient and/or caregivers are aware that any significant change in condition or worsening of symptoms should prompt an immediate return to this or the closest emergency department or a call to 911. Admit Note I have spoken with the patient and/or caregivers. I have explained the patient's condition, diagnoses and treatment plan based on the information available to me at this time. I have answered the patient's and/or caregiver's questions and addressed any concerns. The patient and/or caregivers have as good an understanding of the patient's diagnosis, condition and treatment plan as can be expected at this point. The patient has been stabilized within the capability of the emergency department. The patient will be transported for further care and management or will be moved to an observation or inpatient service. I have communicated with the staff or medical practitioner taking over this patient's care. at [address] [facility] #:[id number] END OF REPORT [facility]
[2024-10-03] MEDS ORDERED: NA CHLORIDE 0.9% 1,000 ML ONE (00:20)
[2024-10-03] MEDS ORDERED: DIPHENHYDRAMINE 50 MG/ML VIAL ONE (00:20)
[2024-10-03] MEDS ORDERED: METHYLPREDNISOLONE 125 MG INJ ONE (00:20)
[2024-10-03 00:56] LABS: Absolute Basophils 0.1 K/uL (0-0.5); Absolute Eosinophils 0.1 K/uL (0-0.5); Absolute Lymphocytes (CBC) 2.1 K/uL (0.7-4.9); Absolute Monocytes 0.4 K/uL (0.1-1.3); Absolute Neutrophil 3.6 K/uL (1.8-8.0); Basophils % 0.9 % (0-1.3); Eosinophils % 1.6 % (0-4.4); Hematocrit 34.1 % (36.0-45.0); Hemoglobin 11.5 g/dL (12.0-15.0); Lymphocytes % 32.8 % (15.3-44.8); MCH 28.4 pg (27.0-35.0); MCHC 33.7 g/dL (32.0-36.0); MCV 84.4 fL (80-100); MPV 10.4 fL (7.6-11.3); Monocytes % 6.9 % (3.3-12.3); Neutrophils % 57.8 % (41.7-73.7); Platelets 248 thou/uL (152-406); RBC Red Blood Cell Count 4.05 M/uL (3.86-4.86); Red Cell Distribution Width 15.5 % (12.1-15.2)
--- NOTE | 2024-10-03 01:38 | ER ---
Nurse's Notes [facility] Name: Charley Hurtado Age: 23 yrs Sex: Female : 2000 Arrival Date: 10/03/2024 Time: 00:06 Bed 5 Private MD: Diagnosis: Allergy, unspecified Presentation: 10/03 00:19 Chief complaint: Patient states: left eye swelling X30 min. Coronavirus screen: Client lg3 denies travel out of the [place] in the last 14 days. At this time, the client does not indicate any symptoms associated with coronavirus-19. Ebola Screen: No symptoms or risks identified at this time. Onset: The symptoms/episode began/occurred suddenly, 30 minute(s) ago. Anaphylaxis evaluation, angioedema. Initial Sepsis Screen: Does the patient meet any 2 criteria? No. Patient's initial sepsis screen is negative. Does the patient have a suspected source of infection? No. Patient's initial sepsis screen is negative. Risk Assessment: Do you want to hurt yourself or someone else? Patient reports no desire to harm self or others. Onset of symptoms was October 03, 2024. 00:19 Method Of Arrival: Ambulatory lg3 00:19 Acuity: FABIAN 3 lg3 Triage Assessment: 00:20 General: Appears in no apparent distress. uncomfortable, Behavior is calm, cooperative. lg3 Pain: Complains of pain in left eye. EENT: Eyes are tearing on left eye with exudate noted from left eye Throat is clear with gag reflex present, Reports difficulty swallowing. Neuro: No deficits noted. Barber Agitation-Sedation Scale (RASS): 0 - Alert and Calm Level of Consciousness is awake, alert, obeys commands, Oriented to person, place, time, situation. Cardiovascular: No deficits noted. Denies chest pain, shortness of breath, Capillary refill < 3 seconds Clubbing of nail beds is absent JVD is absent Patient's skin is warm and dry. Respiratory: No deficits noted. Airway is patent Respiratory effort is even, unlabored, Respiratory pattern is regular, symmetrical, Breath sounds are clear bilaterally. GI: No deficits noted. No signs and/or symptoms were reported involving the gastrointestinal system. : No signs and/or symptoms were reported regarding the genitourinary system. Derm: Skin is intact, is healthy with good turgor, Skin is dry, Skin is normal, Skin temperature is warm. Musculoskeletal: Circulation, motion, and sensation intact. Range of motion: intact in all extremities, Swelling present in face. 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 - Infectious Disease History:: Denies. - Social history:: Smoking status: Patient reports the use of cigarette tobacco products, denies chronic smoking, but will smoke occasionally, Patient uses alcohol, only on a social basis. Patient/guardian denies using street drugs. Screenin:23 [facility] ED Fall Risk Assessment (Adult) History of falling in the last 3 months, lg3 including since admission No falls in past 3 months (0 pts) Confusion or Disorientation No (0 pts) Intoxicated or Sedated No (0 pts) Impaired Gait No (0 pts) Mobility Assist Device Used No (0 pt) Altered Elimination No (0 pt) Score/Fall Risk Level 0 - 2 = Low Risk Oriented to surroundings, Maintained a safe environment, Educated pt \T\ family on fall prevention, incl call for assistance when getting out of bed, Assessed \T\ reinforced patient's understanding of fall precautions. Abuse screen: Denies threats or abuse. Denies injuries from another. Nutritional screening: No deficits noted. Tuberculosis screening: No symptoms or risk factors identified. Assessment: 00:23 General: see triage assessment. Respiratory: No deficits noted. Airway is patent lg3 Respiratory effort is even, unlabored, Respiratory pattern is regular, symmetrical, Breath sounds are clear bilaterally. 01:54 Reassessment: Patient appears in no apparent distress at this time. Patient and/or bm8 family updated on plan of care and expected duration. Pain level reassessed. Patient is alert, oriented x 3, equal unlabored respirations, skin warm/dry/pink. swelling around eyes are greatly reduced Patient denies pain at this time. Patient states feeling better. Patient states symptoms have improved. Vital Signs: 00:19 BP 166 / 95; Pulse 92; Resp 16 S; Temp 98.7(O); Pulse Ox 100% on R/A; Weight 77.11 kg lg3 (R); Height 5 ft. 3 in. (R); Pain 3/10; 01:54 BP 136 / 88; Pulse 76; Resp 18; Temp 98.7; Pulse Ox 100% ; Pain 0/10; bm8 00:19 Body Mass Index 30.11 (77.11 kg, 160.02 cm) lg3 00:19 Pain Scale: Adult lg3 01:54 Pain Scale: Adult bm8 Teri Coma Score: 01:54 Eye Response: spontaneous(4). Motor Response: obeys commands(6). Verbal Response: bm8 oriented(5). Total: 15. ED Course: 00:07 Patient arrived in ED. am2 00:10 Jack Vasquez MD is Attending Physician. ec2 00:19 Talia Mcnally RN is Primary Nurse. lg3 00:20 Triage completed. lg3 00:20 Arm band placed on right wrist. lg3 00:23 Patient has correct armband on for positive identification. Bed in low position. Call lg3 light in reach. Side rails up X 1. Client placed on continuous cardiac and pulse oximetry monitoring. NIBP monitoring applied. Door closed. Noise minimized. Warm blanket given. Pillow given. Family accompanied patient. 00:23 Initial lab(s) drawn, by ED staff, sent to lab. Inserted saline lock: 20 gauge in right lg3 antecubital area, using aseptic technique. Blood collected. Flushed with 10 mL NS. Patient maintains SpO2 saturation greater than 95% on room air. 01:54 Provided Education on: post er care. bm8 01:54 No provider procedures requiring assistance completed. IV discontinued, intact, bm8 bleeding controlled, No redness/swelling at site. Pressure dressing applied. Administered Medications: 00:24 Drug: NS 0.9% IV 1000 ml IV at 1000 ml once; to be given as a bolus over 60 minutes lg3 Route: IV; Rate: 1000 ml; Site: right antecubital; 01:56 Follow up: Response: No adverse reaction; IV Status: Completed infusion; IV Intake: bm8 1000ml 00:24 Drug: MethylPrednisoLONE IVP 125 mg IVP once Route: IVP; Site: right antecubital; lg3 01:56 Follow up: Response: No adverse reaction bm8 00:24 Drug: diphenhydrAMINE IVP 50 mg IVP once Route: IVP; Site: right antecubital; lg3 01:56 Follow up: Response: No adverse reaction bm8 00:24 Drug: Famotidine IVP 20 mg IVP once; dilute with 10 mL 0.9% NaCl; give over 2 minutes lg3 Route: IVP; Site: right antecubital; 01:56 Follow up: Response: No adverse reaction bm8 Medication: 01:54 VIS not applicable for this client. bm8 Intake: 01:56 IV: 1000ml; Total: 1000ml. bm8 Outcome: 01:38 Discharge ordered by . ec2 01:54 Discharged to home ambulatory, with family, bm8 01:54 Condition: stable 01:54 Discharge instructions given to patient, family, Instructed on discharge instructions, follow up and referral plans. Demonstrated understanding of instructions, follow-up care, medications, Prescriptions given X 1, 01:57 Patient left the ED. bm8 Signatures: Nanette Colon am2 Talia Mcnally RN RN lg3 Jack Vasquez MD MD ec2 Ankit Bajwa RN RN bm8
--- NOTE | 2024-10-03 01:38 | EDPHYS ---
Physician Documentation [facility] Name: Charley Hurtado Age: 23 yrs Sex: Female : 2000 Arrival Date: 10/03/2024 Time: 00:06 Bed 5 Private MD: ED Physician Jack Vasquez HPI: 10/03 00:20 This 23 yrs old Female presents to ER via Unassigned with complaints of Eye ec2 Swelling, Allergic Reaction. 00:20 Patient arrives today for facial swelling. Patient reports that she felt some ec2 left-sided facial swelling along with some right periorbital swelling and some throat itchiness. Patient reports no difficulty swallowing, no issues with secretions. States that she had used some new eyelashes tonight, has not taken any new foods however did have seafood tonight which she normally has no. Patient reports no new allergens or exposures. 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 - Infectious Disease History:: Denies. - Social history:: Smoking status: Patient reports the use of cigarette tobacco products, denies chronic smoking, but will smoke occasionally, Patient uses alcohol, only on a social basis. Patient/guardian denies using street drugs. ROS: 00:20 Constitutional: as per hpi ec2 Exam: 00:20 Constitutional: GEN: NAD Head: atraumatic Eyes: EOMI bilateral periorbital edema with ec2 left worse than right, orbital edema appreciated as well. Ears: External ears are normal. Mouth: No pharyngeal or oral edema appreciated, no stridor CV: regular rate LUNGS: no respiratory distress, no wheezes or rales or rhonchi ABD: non-distended SKIN: no evidence of rashes no urticaria MSK: no evidence of trauma Vital Signs: 00:19 BP 166 / 95; Pulse 92; Resp 16 S; Temp 98.7(O); Pulse Ox 100% on R/A; Weight 77.11 kg lg3 (R); Height 5 ft. 3 in. (R); Pain 3/10; 01:54 BP 136 / 88; Pulse 76; Resp 18; Temp 98.7; Pulse Ox 100% ; Pain 0/10; bm8 00:19 Body Mass Index 30.11 (77.11 kg, 160.02 cm) lg3 00:19 Pain Scale: Adult lg3 01:54 Pain Scale: Adult bm8 Teri Coma Score: 01:54 Eye Response: spontaneous(4). Motor Response: obeys commands(6). Verbal Response: bm8 oriented(5). Total: 15. MDM: 00:10 Medical Screening Exam initiated ec2 00:21 Data reviewed: vital signs, nurses notes. ED course: Patient arrives today for ec2 evaluation of facial swelling. Examination yields HEENT findings as above. Will give the patient steroids, Benadryl as well as crystalloid and Pepcid. Patient without stridor or respiratory distress, reassuring lung sounds, will continue to monitor. DDx included processes such as periorbital cellulitis, angioedema, allergic reaction. 01:01 ED course: On reassessment patient with improvement in symptoms. Will continue to ec2 observe. 01:37 ED course: On reassessment patient remains with improvement in facial swelling. Will ec2 discharge home with prescription for prednisone, suspect allergic reaction.. 03 00:19 Order name: CBC with Diff; Complete Time: 01:06 ec2 10/03 00:19 Order name: BMP; Complete Time: 01:00 ec2 10/03 00:19 Order name: Test, Serum; Complete Time: 01:00 ec2 10/03 00:19 Order name: IV; Complete Time: 00:25 ec2 10/03 00:20 Order name: Ice; Complete Time: 00:33 ec2 Administered Medications: 00:24 Drug: NS 0.9% IV 1000 ml IV at 1000 ml once; to be given as a bolus over 60 minutes lg3 Route: IV; Rate: 1000 ml; Site: right antecubital; 01:56 Follow up: Response: No adverse reaction; IV Status: Completed infusion; IV Intake: bm8 1000ml 00:24 Drug: MethylPrednisoLONE IVP 125 mg IVP once Route: IVP; Site: right antecubital; lg3 01:56 Follow up: Response: No adverse reaction bm8 00:24 Drug: diphenhydrAMINE IVP 50 mg IVP once Route: IVP; Site: right antecubital; lg3 01:56 Follow up: Response: No adverse reaction bm8 00:24 Drug: Famotidine IVP 20 mg IVP once; dilute with 10 mL 0.9% NaCl; give over 2 minutes lg3 Route: IVP; Site: right antecubital; 01:56 Follow up: Response: No adverse reaction bm8 Disposition Summary: 10/03/24 01:38 Discharge Ordered Notes: Location: Home ec2 Condition: Stable ec2 Diagnosis - Allergy, unspecified ec2 Followup: ec2 - With: Private Physician - When: - Reason: Re-evaluation by your physician Discharge Instructions: - Discharge Summary Sheet ec2 - Anaphylactic Reaction, Adult, [id number] ec2 Forms: - Medication Reconciliation Form ec2 - Antibiotic Education ec2 - Prescription Opioid Use ec2 - Patient Portal Instructions ec2 - Leadership Thank You Letter ec2 Prescriptions: - Prednisone 20 mg Oral Tablet - take 2 tablets ORAL route once daily for 5 days; 10 tablet; Refills: 0, Product ec2 Selection Permitted Signatures: Dispatcher [employer] Talia Johnson RN RN lg3 Jack Vasquez MD MD ec2 Ankit Bajwa RN bm8
[2024-10-03 02:01] VITALS: TEMP 98.7; O2SAT 100
[2024-10-03 02:02] VITALS: BP 136/88
== END 2024-10-03 01:57 | disposition home or self-care (01) ==
LOC: ER 00:06
DX: R22.0 Localized swelling, mass and lump, head (principal)
CPT/HCPCS: 36415; 80048; 84703; 85025; 96361; 96374; 96375; 99284; J1200; J2919; J7030